=== PATIENT | female | born 1965 | race Caucasian/White ===

== ENCOUNTER 2016-10-11 05:52 | Inpatient (IN) | payer MEDICARE, OTHER ==
[~2016-10-11] VITALS: Ht 152.4 cm; Wt 49.0 kg
[~2016-10-11 05:52] MED LIST: ALBU.5I NEB; ALBU6.7H INH; ALPR1TAB3 PO; CYCL1TAB29 PO; DIAZ10TA PO; FLUT1INH7 INH; HYDR-3516 PO; OXYGENTANK NAS.CANULA; PROM6.256 PO
[2016-10-11] MEDS ORDERED: INSULIN HUMAN REGULAR 1,000 UNITS/10 ML VIAL SQ PRN (06:30)
[2016-10-11] MEDS ORDERED: LACTATED RINGER'S 1000 ML IV PRN (06:30)
[2016-10-11] MEDS ORDERED: SODIUM CHLORID 0.9% 500 ML IV PRN (06:30)
[2016-10-11] MEDS ORDERED: ceFAZolin 2 GM PREMIX 50 ML IV SCH (06:30)
[2016-10-11] MEDS ORDERED: CHLORHEXIDINE GLUCONATE 2 % 1 PACK (2 CLOTHS) TOPICAL PRN (06:30)
[2016-10-11] MEDS ORDERED: METOPROLOL TARTRATE 25 MG TAB PO PRN (06:30)
[2016-10-11 06:40] VITALS: BP 101/69; PULSE 70; RESP 16; TEMP 97.2; O2SAT 98
[2016-10-11 06:55] LABS: AUTOMATED NEUTROPHIL # 2.8 TH/MM3 (1.8-7.7); BASOPHIL # 0.1 TH/MM3 (0-0.2); BASOPHIL % 1.1 % (0.0-2.0); EOSINOPHIL # 0.4 TH/MM3 (0-0.4); EOSINOPHIL % 5.6 % (0.0-4.0); HEMATOCRIT 37.9 % (35.0-46.0); HEMO FLAGS DIFF FINAL; LYMPH % 43.8 % (9.0-44.0); LYMPHOCYTE # 2.9 TH/MM3 (1.0-4.8); MEAN CELL VOLUME 80.9 FL (80.0-100.0); MEAN CORPUSCULAR HEMOGLOBIN 26.8 PG (27.0-34.0); MEAN CORPUSCULAR HGB CONC 33.1 % (32.0-36.0); MONO % 7.1 % (0.0-8.0); NEUT % 42.4 % (16.0-70.0); PLATELET COUNT 215 TH/MM3 (150-450); RED BLOOD COUNT 4.68 MIL/MM3 (4.00-5.30); RED CELL DISTRIBUTION WIDTH 14.8 % (11.6-17.2); WHITE BLOOD COUNT 6.7 TH/MM3 (4.0-11.0)
[2016-10-11 07:10] LABS: BICARBONATE 28.3 MEQ/L (21.0-32.0); POTASSIUM 3.9 MEQ/L (3.5-5.1)
[2016-10-11] MEDS ORDERED: BUPRENORPHINE HCL 0.3 MG/1 ML VIAL ONE (07:27)
[2016-10-11] MEDS ORDERED: MIDAZOLAM HCL 2 MG/2 ML VIAL ONE (07:48)
[2016-10-11] MEDS ORDERED: methylPREDNISolone SOD SUCC 125 MG/2 ML VIAL ONE (07:48)
[2016-10-11] MEDS ORDERED: BUPIVACAINE LIPOSOME PF 1.3% 20 ML VIAL ONE (08:26)
[2016-10-11] MEDS ORDERED: DEXAMETHASONE SOD PHOS PF 10 MG/ML VIAL IV ONE (08:26)
[2016-10-11] MEDS ORDERED: BUPIVACAINE/EPINEPHRINE 0.25% PF 30 ML VIAL INFIL ONE (08:38)
--- NOTE | 2016-10-11 10:20 | EKG ---
Date Performed: 10/11/2016 Time Performed: 06:47:17 PTAGE: 51 years EKG: Sinus rhythm NORMAL ECG PREVIOUS TRACING : 06/07/2014 20.42 DOCTOR: Wood Skinner Interpretating Date/Time 10/11/2016 10:17:54
[2016-10-11] MEDS ORDERED: fentaNYL CITRATE 250 MCG/5 ML AMP ONE (11:10)
[2016-10-11] MEDS ORDERED: MORPHINE SULFATE 4 MG/ML INJ IV PRN (11:15)
[2016-10-11] MEDS ORDERED: Post-op Orders (for Pharmacy) MISC XX ONE (11:15)
[2016-10-11] MEDS ORDERED: diphenhydrAMINE HCL 50 MG/ML VIAL IV PRN (11:15)
[2016-10-11] MEDS ORDERED: ACETAMINOPHEN 325 MG TAB PO PRN (11:15)
[2016-10-11] MEDS ORDERED: LORazepam 2 MG/ML VIAL IVP PRN (11:15)
[2016-10-11] MEDS ORDERED: RESP: ALBUTEROL 1.25 MG/3 ML NEB (PRN) NEB (11:15)
[2016-10-11] MEDS ORDERED: ACETAMINOPHEN/HYDROcodone 325 MG/5 MG TAB PO PRN (11:15)
[2016-10-11] MEDS ORDERED: PROMETHAZINE HCL 25 MG SUPP RECTAL PRN (11:15)
[2016-10-11] MEDS ORDERED: ONDANSETRON HCL 4 MG/2 ML VIAL IV PRN (11:15)
[2016-10-11] MEDS ORDERED: MAGNESIUM HYDROXIDE SUSP 30 ML CUP PO PRN (11:15)
[2016-10-11] MEDS ORDERED: NALOXONE HCL 0.4 MG/ML AMP IV PRN (11:15)
--- NOTE | 2016-10-11 11:19 | HHI.PR ---
Immediate Post Op Note Procedure Date: October 11, 2016 Pre Op Diagnosis: (1) Median arcuate ligament syndrome Post Op Diagnosis: (1) Median arcuate ligament syndrome Surgeon: Giancarlo Cheney Online Tutor(s): Anirudh Bai MD Procedure: Laparoscopic division of median arcuate ligament Findings: significant compression of high takeoff and long celiac truck Complications: none Specimen(s) removed: none Estimated blood loss: 25ml Anesthesia: General, Regional Block Drains: None Patient to: PACU Patient Condition: Good Giancarlo Cheney MD October 11, 2016 11:19
[2016-10-11] MEDS ORDERED: DO NOT ADM ANY ANTICOAGULANT DRUGS PRN (11:30)
[2016-10-11] MEDS ORDERED: *ONDANSETRON 4 MG VIAL PERIprocedural Use ONLY ONE (11:46)
[2016-10-11] MEDS ORDERED: *morphine SULFATE 8 MG/ML PERIprocedure ONLY ONE ×2 (11:48→12:11)
[2016-10-11] MEDS: PANTOPRAZOLE SODIUM 40 MG VIAL IV SCH (11:58)
[2016-10-11] MEDS ORDERED: ONDANSETRON HCL 4 MG/2 ML VIAL IV PUSH ONE (12:00)
[2016-10-11] MEDS ORDERED: NEOSTIGMINE 3 MG/3 ML SYR IV ONE (12:00)
[2016-10-11] MEDS ORDERED: PROPOFOL 200 MG/20 ML AMP IV ONE (12:00)
[2016-10-11] MEDS ORDERED: PHENYLEPH/NS 1000 MCG/10 ML SYR IV ONE (12:00)
[2016-10-11] MEDS: SODIUM CHLOR 0.9% 1000 ML INJ 1,000 ML IV SCH ×2 (12:00→19:51)
[2016-10-11] MEDS ORDERED: ePHEDrine/NS 25 MG/5 ML SYR IV ONE (12:00)
[2016-10-11] MEDS: RESP: ALBUTEROL 1.25 MG/3 ML NEB (SCH) NEB ×3 (12:10→20:00)
--- NOTE | 2016-10-11 12:28 | MP ---
cc: EMMA GALINDO DATE OF SURGERY: 10/11/2016 PREOPERATIVE DIAGNOSIS Median arcuate ligament syndrome. POSTOPERATIVE DIAGNOSIS Median arcuate ligament syndrome. PROCEDURE Laparoscopic division of the median arcuate ligament. ATTENDING SURGEON Dr. Galindo. CHILD CARE LEADER Dr. Anirudh Bai. ANESTHESIA General and regional block. FINDINGS A very high takeoff long celiac artery under very significant compression from the arcuate ligament, complete division up to the proximal portion of the takeoff of the arcuate ligament. INDICATIONS FOR PROCEDURE The patient is a 51-year-old female with over 25 pounds of weight loss and has significant epigastric abdominal pain with p.o. intake. Extensive workup done by her housekeeping department worker Dr. Pierre did reveal a compression of the celiac artery with a high takeoff and with these image findings as well as the clinical scenario this was very concerning for median arcuate ligament syndrome. The patient was referred for surgery evaluation. The patient also was referred by myself and Dr. Wood of vascular surgery, who agreed that the patient had clinical and imaging concerning for arcuate ligament syndrome. The risks, benefits, alternatives including outcomes after the procedure were discussed with the patient prior to the procedure and the patient agreed to undergo the procedure. PROCEDURE After informed consent was obtained the patient was taken to the operating room, placed in supine position, placed under general endotracheal anesthesia. The patient's abdomen was prepped and draped in sterile fashion. Time-out was performed. The abdomen was entered through a Colin direct entry type technique just above the umbilicus. We used local anesthetic at all port sites. We insufflated the abdomen, surveyed the abdomen with the 5 mm 30 degree camera and there is no evidence of any complication from our entry. There is really no significant intra-abdominal pathology. There was some scarring on the liver but no suspicion for any malignancy or acute process. We then placed additional ports, these were all 5 mm ports, two in the left upper quadrant, one in the subxiphoid position, one in the right upper quadrant, all under visualization with the laparoscope. We placed a maria fernanda flex retractor to retract the left lobe of the liver upward. Then used the combination of multiple instruments including the laparoscopic LigaSure, laparoscopic Maryland dissectors and the hook electrocautery to begin our dissection. We were able to easily visualize the common hepatic artery as well as the left gastric artery from the celiac trunk. We did use the LigaSure as well as electrocautery to take down the gastrohepatic ligament and open up the lesser sac and the peritoneum overlying the aorta. We completely dissected out around the celiac artery approximately 270 degrees so that we could confirm that this was the celiac trunk and we had got down to the adventitia. We continued our dissection superiorly and along the celiac trunk again using gentle careful dissection with a Maryland underneath the arcuate ligament and dividing the ligament, small 2-4 mm bites with the LigaSure. We continue this dissection until we had encountered the junction of the celiac trunk and aorta. This was 2-3 cm above the splaying into the vessels and was relatively long celiac trunk which essentially popped up into the field as we divided the median arcuate ligament. This was very concerning for significant compression. We completely freed up the celiac trunk again to the most proximal portion of the origin and there was no kinking and we had a good pulsatile flow. I felt at this point in time we had completely dissected the arcuate ligament and would have an excellent technical result and we turned our attention towards closure. We did place some small hemoclips on some branches at the diaphragm as well as some lymphatic vessels. We had no bleeding, bile leak or evidence of any problem at this point. We removed the maria fernanda flex retractor was placed the left lobe of the liver back in normal anatomic position. We removed all ports under visualization with the laparoscope and expressed pneumoperitoneum. We closed the fascia at the Colin port site with 0 Vicryl suture. We closed the skin with 4-0 Monocryl and Dermabond. The patient was discontinued from anesthesia, taken to PACU in stable condition. The patient tolerated the procedure well. There were no apparent complications. All counts were correct. I was present and scrubbed for the entire procedure. MD HUMERA Rubio/EDUARDO /11:23 AM /12:01 PM
[2016-10-11] MEDS ORDERED: *HYDROmorphone PF 1 MG VIAL PERIprocedural Use ONLY ONE (12:56)
[2016-10-11] MEDS: DIAZEPAM 10 MG TAB PO SCH ×2 (13:00→18:05)
[2016-10-11 14:00] VITALS: BP 103/63; PULSE 76; RESP 16; TEMP 96.2; O2SAT 100
[2016-10-11] MEDS: ACETAMINOPHEN/HYDROcodone 325 MG/10 MG TAB PO PRN ×3 (15:21→23:51)
[2016-10-11 16:00] VITALS: BP 113/60; PULSE 75; RESP 17; TEMP 96.9; O2SAT 100
[2016-10-11] MEDS: ALPRAZolam 1 MG TAB PO SCH (19:51)
[2016-10-11] MEDS: SODIUM CHLORIDE 0.9% FLUSH 10 ML FLUSH IV FLUSH SCH (19:53)
[2016-10-11 20:00] VITALS: BP 113/72; PULSE 77; RESP 20; TEMP 97.2; O2SAT 100; O2SAT 99
[2016-10-11] MEDS: KETOROLAC TROMETHAMINE 60 MG/2 ML (IM) VIAL IM PRN (20:53)
[2016-10-12] VITALS (11 sets, daily range): BP systolic 101–125; BP diastolic 60–72; PULSE 65–80; RESP 16–20; TEMP 96.9–98.3; O2SAT 95–100
[2016-10-12] MEDS: RESP: ALBUTEROL 1.25 MG/3 ML NEB (SCH) NEB ×6 (01:26→20:00)
[2016-10-12] MEDS: KETOROLAC TROMETHAMINE 60 MG/2 ML (IM) VIAL IM PRN (02:44)
[2016-10-12 05:47] LABS: AUTOMATED NEUTROPHIL # 7.6 TH/MM3 (1.8-7.7); BASOPHIL % 0.3 % (0.0-2.0); EOSINOPHIL # 0.1 TH/MM3 (0-0.4); EOSINOPHIL % 0.8 % (0.0-4.0); HEMATOCRIT 35.8 % (35.0-46.0); HEMO FLAGS DIFF FINAL; LYMPH % 25.3 % (9.0-44.0); LYMPHOCYTE # 2.9 TH/MM3 (1.0-4.8); MEAN CELL VOLUME 79.9 FL (80.0-100.0); MEAN CORPUSCULAR HEMOGLOBIN 26.5 PG (27.0-34.0); MEAN CORPUSCULAR HGB CONC 33.2 % (32.0-36.0); MONO % 6.5 % (0.0-8.0); NEUT % 67.1 % (16.0-70.0); PLATELET COUNT 195 TH/MM3 (150-450); RED BLOOD COUNT 4.48 MIL/MM3 (4.00-5.30); RED CELL DISTRIBUTION WIDTH 15.1 % (11.6-17.2); WHITE BLOOD COUNT 11.3 TH/MM3 (4.0-11.0)
[2016-10-12 06:27] LABS: BICARBONATE 28.3 MEQ/L (21.0-32.0)
[2016-10-12] MEDS: SODIUM CHLOR 0.9% 1000 ML INJ 1,000 ML IV SCH ×2 (07:11→17:11)
[2016-10-12] MEDS ORDERED: NALOXONE HCL 0.4 MG/ML AMP IV PRN (08:00)
[2016-10-12] MEDS: ENOXAPARIN SODIUM 40 MG/0.4 ML SYRINGE SQ SCH (08:41)
[2016-10-12] MEDS: DIAZEPAM 10 MG TAB PO SCH ×3 (08:43→18:23)
[2016-10-12] MEDS: SODIUM CHLORIDE 0.9% FLUSH 10 ML FLUSH IV FLUSH SCH ×2 (08:43→20:10)
[2016-10-12] MEDS: PANTOPRAZOLE SODIUM 40 MG VIAL IV SCH (08:43)
[2016-10-12] MEDS ORDERED: diphenhydrAMINE HCL 50 MG CAP PO ONE ×2 (08:45→22:00)
[2016-10-12] MEDS ORDERED: FLUTICASONE VILANTEROL INH SCH (09:00)
[2016-10-12] MEDS: MORPHINE SULFATE 30 MG/30 ML PCA IV SCH (09:31)
[2016-10-12] MEDS: predniSONE 50 MG TAB PO SCH ×3 (10:53→21:57)
[2016-10-12] MEDS: oxyCODONE/ACETAMINOPHEN 7.5 MG/325 MG TAB PO PRN ×4 (10:53→23:55)
[2016-10-12] MEDS: CYCLOBENZAPRINE HCL 10 MG TAB PO PRN ×2 (13:45→21:57)
[2016-10-12] MEDS: PCA - TOTAL MG MORPHINE DELIVERED PER SHIFT SCH ×2 (14:00→20:10)
--- NOTE | 2016-10-12 16:19 | HHI.PR ---
Subjective Subjective Notes Resting in bed Pain controlled with CLIENT SERVICES REPRESENTATIVE pump Objective Vitals/I&O Vital Signs Date Time Temp Pulse Resp B/P Pulse Ox O2 Delivery O2 Flow Rate FiO2 10/12/16 14:00 16 10/12/16 12:00 96.9 80 109/71 98 10/12/16 11:33 Nasal Cannula 2.00 Labs Laboratory Tests Test 10/12/16 05:33 White Blood Count 11.3 Red Blood Count 4.48 Hemoglobin 11.9 Hematocrit 35.8 Mean Corpuscular Volume 79.9 Mean Corpuscular Hemoglobin 26.5 Mean Corpuscular Hemoglobin 33.2 Concent Red Cell Distribution Width 15.1 Platelet Count 195 Mean Platelet Volume 7.7 Neutrophils (%) (Auto) 67.1 Lymphocytes (%) (Auto) 25.3 Monocytes (%) (Auto) 6.5 Eosinophils (%) (Auto) 0.8 Basophils (%) (Auto) 0.3 Neutrophils # (Auto) 7.6 Lymphocytes # (Auto) 2.9 Monocytes # (Auto) 0.7 Eosinophils # (Auto) 0.1 Basophils # (Auto) 0.0 CBC Comment DIFF FINAL Differential Comment Sodium Level 142 Potassium Level 4.0 Chloride Level 106 Carbon Dioxide Level 28.3 Anion Gap 8 Blood Urea Nitrogen 5 Creatinine 0.47 Estimat Glomerular Filtration 140 Rate Random Glucose 95 Calcium Level 8.4 Cardiovascular: Regular Lungs: Clear Abdomen: Other (lap sites c/d/i with Dermabond in place; post op tenderness; abd soft ) Extremities: No edema A/P Assessment and Plan 51 year old female POD1 Laparoscopic division of median arcuate ligament -CTA to eval celiac trunk -Regular diet + chocolate Ensure---encouraged small more frequent meals -Pain control -OOB as tolerated Attending Statement The exam, history, and the medical decision-making described in the above note were completed with the assistance of the mid-level provider. I reviewed and agree with the findings presented. I attest that I had a [id number] encounter with the patient on the same day, and personally performed and documented my assessment and findings in the medical record. Abdominal exam with expected postop tenderness on exam Anna Botello October 12, 2016 16:19 Giancarlo Cheney MD October 24, 2016 17:01
[2016-10-12] MEDS: ALPRAZolam 1 MG TAB PO SCH (20:09)
[2016-10-12] MEDS ORDERED: IOHEXOL 350 MG/ML 10 ML VIAL (for RAD DIAG) IV ONE (23:31)
[2016-10-13] VITALS (10 sets, daily range): BP systolic 94–119; BP diastolic 55–70; PULSE 61–80; RESP 16–18; TEMP 97–97.6; O2SAT 98–100
--- NOTE | 2016-10-13 00:21 | RADRPT ---
EXAM DATE/TIME: 10/12/2016 23:23 [facility] COMPARISON: No previous studies available for comparison. INDICATIONS : Post arcuate ligament ligation. Evaluate celiac trunk. IV CONTRAST: 100 cc Omnipaque 350 (iohexol) IV ORAL CONTRAST: No oral contrast ingested. RADIATION DOSE: 4.57 CTDIvol (mGy) MEDICAL HISTORY : Gastroesophageal reflux disease. Diverticulitis. Ulcers.COPD. Myocardial infarction. SURGICAL HISTORY : Appendectomy. Cholecystectomy.Hysterectomy. ENCOUNTER: Initial ACUITY: 1 day PAIN SCALE: 5/10 LOCATION: All quadrants. Patient was premedicated for underlying contrast media allergy. TECHNIQUE: Volumetric scanning was performed using a multi-row detector CT scanner. The data was post processed with a variety of visualization algorithms including full volume maximum intensity projection, multi -planar sliding thin slab reformation, curved planar reformation, and surface rendering techniques. Using automated exposure control and adjustment of the mA and/or kV according to patient size, radiat ion dose was kept as low as reasonably achievable to obtain optimal diagnostic quality images. FINDINGS: Patient reportedly status post ligation of the arcuate ligament. Multiple surgical clips present near the origin of the celiac artery. Celiac artery is patent and the common hepatic and splenic artery a re patent. Superior mesenteric, inferior mesenteric and renal arteries are also patent. There is mild to moderate atherosclerotic change in the aorta without aneurysm. There is free intraperitoneal air presumably related to recent surgical procedure. No acute findings in the visualized liver, spleen, adrenals, kidneys or pancreas. Small amount of free fluid in the pel vis. No acute bony abnormality. CONCLUSION: 1. Patent celiac artery and branches. Numerous surgical clips in the upper abdomen. 2. Superior mesenteric, inferior mesenteric and renal arteries also patent. Moderate atherosclerosis. 3. Free intraperitoneal air and small amount of free fluid presumably related to recent surgery. Jeremi Fox MD on October 13, 2016 at 0:13 Board Certified Radiologist. This report was verified electronically.
[2016-10-13] MEDS: RESP: ALBUTEROL 1.25 MG/3 ML NEB (SCH) NEB ×7 (03:36→23:37)
[2016-10-13] MEDS: oxyCODONE/ACETAMINOPHEN 7.5 MG/325 MG TAB PO PRN ×4 (04:03→17:29)
[2016-10-13] MEDS: MORPHINE SULFATE 30 MG/30 ML PCA IV SCH (04:18)
[2016-10-13] MEDS: SODIUM CHLOR 0.9% 1000 ML INJ 1,000 ML IV SCH ×3 (04:19→23:46)
[2016-10-13] MEDS: PCA - TOTAL MG MORPHINE DELIVERED PER SHIFT SCH ×3 (06:00→20:27)
[2016-10-13] MEDS: DIAZEPAM 10 MG TAB PO SCH ×3 (08:25→17:29)
[2016-10-13] MEDS: PANTOPRAZOLE SODIUM 40 MG VIAL IV SCH (08:25)
[2016-10-13] MEDS: SODIUM CHLORIDE 0.9% FLUSH 10 ML FLUSH IV FLUSH SCH ×2 (08:26→20:27)
[2016-10-13] MEDS: ENOXAPARIN SODIUM 40 MG/0.4 ML SYRINGE SQ SCH (08:26)
--- NOTE | 2016-10-13 10:59 | HHI.PR ---
Subjective Subjective Notes Resting in bed Reports low appetite Objective Vitals/I&O Vital Signs Date Time Temp Pulse Resp B/P Pulse Ox O2 Delivery O2 Flow Rate FiO2 10/13/16 09:35 16 10/13/16 08:50 99 Nasal Cannula 2.00 10/13/16 08:00 97.3 68 119/67 10/12/16 16:39 21 Radiology Last 48 hours Impressions Abdomen/Pelvis CT 10/12/16 0000 Signed Impressions: Service Date/Time: September 23:23 - CONCLUSION: 1. Patent celiac artery and branches. Numerous surgical clips in the upper abdomen. 2. Superior mesenteric, inferior mesenteric and renal arteries also patent. Moderate atherosclerosis. 3. Free intraperitoneal air and small amount of free fluid presumably related to recent surgery. Jeremi Fox MD Cardiovascular: Regular Lungs: Clear Abdomen: Other (lap sites c/d/i; mild distenstion; tender to palpation throughout abdomen ) Extremities: No edema A/P Assessment and Plan 51 year old female POD2 Laparoscopic division of median arcuate ligament -CTA to eval celiac trunk shows patent celiac artery and branches -Plan for labs in the AM -Regular diet + chocolate Ensure---encouraged small more frequent meals -Pain control -OOB as tolerated -IS Attending Statement patient see seen at bedside CTA with patent celiac pt is feeling better Attestation The exam, history, and the medical decision-making described in the above note were completed with the assistance of the mid-level provider. I reviewed and agree with the findings presented. I attest that I had a [id number] encounter with the patient on the same day, and personally performed and documented my assessment and findings in the medical record. Anna Botello October 13, 2016 10:59 Anirudh Bai MD October 22, 2016 22:24
[2016-10-13] MEDS: CYCLOBENZAPRINE HCL 10 MG TAB PO PRN ×2 (13:03→21:14)
[2016-10-13] MEDS: ALPRAZolam 1 MG TAB PO SCH (20:26)
[2016-10-14] VITALS (14 sets, daily range): BP systolic 102–136; BP diastolic 58–76; PULSE 66–83; RESP 14–20; TEMP 96.4–97.3; O2SAT 94–100
[2016-10-14] MEDS: MORPHINE SULFATE 30 MG/30 ML PCA IV SCH ×2 (01:45→18:56)
--- NOTE | 2016-10-14 02:49 | RADRPT ---
EXAM DATE/TIME: 10/14/2016 02:36 [facility] COMPARISON: No previous studies available for comparison. INDICATIONS : Chest pain. MEDICAL HISTORY : None. SURGICAL HISTORY : None. ENCOUNTER: Initial ACUITY: 1 day PAIN SCORE: 7/10 LOCATION: Bilateral chest FINDINGS: There is a small amount of intraperitoneal air under the diaphragms presumably related to recent surg ishmael. Minimal basilar atelectasis. No effusion. No pneumothorax. Heart size within normal limits. CONCLUSION: 1. Free intraperitoneal air presumably related to recent surgery. No focal lung consolidation. Minima l basilar atelectasis. Jeremi Fox MD on October 14, 2016 at 2:45 Board Certified Radiologist. This report was verified electronically.
[2016-10-14 03:01] LABS: AUTOMATED NEUTROPHIL # 4.8 TH/MM3 (1.8-7.7); BASOPHIL % 0.5 % (0.0-2.0); EOSINOPHIL # 0.1 TH/MM3 (0-0.4); EOSINOPHIL % 1.2 % (0.0-4.0); HEMATOCRIT 31.1 % (35.0-46.0); LYMPH % 32.7 % (9.0-44.0); LYMPHOCYTE # 2.7 TH/MM3 (1.0-4.8); MEAN CELL VOLUME 81.5 FL (80.0-100.0); MEAN CORPUSCULAR HEMOGLOBIN 26.1 PG (27.0-34.0); MEAN CORPUSCULAR HGB CONC 32.1 % (32.0-36.0); MONO % 6.6 % (0.0-8.0); PLATELET COUNT 165 TH/MM3 (150-450); RED BLOOD COUNT 3.82 MIL/MM3 (4.00-5.30); RED CELL DISTRIBUTION WIDTH 14.9 % (11.6-17.2); WHITE BLOOD COUNT 8.1 TH/MM3 (4.0-11.0)
[2016-10-14 03:02] LABS: HEMO FLAGS DIFF FINAL
[2016-10-14 03:08] LABS: ALT (GPT) 12 U/L (10-53); ANION GAP 7 MEQ/L (5-15); AST (GOT) 27 U/L (15-37); BICARBONATE 27.6 MEQ/L (21.0-32.0); BLOOD UREA NITROGEN 5 MG/DL (7-18); CHLORIDE 110 MEQ/L (98-107); GLOMERULAR FILTRATION RATE 133 ML/MIN (>89); POTASSIUM 3.6 MEQ/L (3.5-5.1); SODIUM (NA) 145 MEQ/L (136-145)
[2016-10-14 03:11] LABS: ALKALINE PHOSPHATASE 35 U/L (45-117); TOTAL BILIRUBIN ADULT 0.2 MG/DL (0.2-1.0)
[2016-10-14] MEDS: RESP: ALBUTEROL 1.25 MG/3 ML NEB (SCH) NEB ×5 (04:33→21:15)
[2016-10-14] MEDS: PCA - TOTAL MG MORPHINE DELIVERED PER SHIFT SCH ×3 (06:00→22:00)
[2016-10-14] MEDS: oxyCODONE/ACETAMINOPHEN 7.5 MG/325 MG TAB PO PRN ×4 (06:14→23:42)
--- NOTE | 2016-10-14 08:06 | HHI.PR ---
Subjective Subjective Notes feels miserable, had pain so bad last night she felt like she was having a heart attack, meds help, but do not last long. Poor appetite, nausea, regurgitation. Objective Vitals/I&O Vital Signs Date Time Temp Pulse Resp B/P Pulse Ox O2 Delivery O2 Flow Rate FiO2 10/14/16 06:18 18 10/14/16 04:34 99 Nasal Cannula 2.00 10/14/16 04:00 97.3 83 134/73 10/12/16 16:39 21 Labs Laboratory Tests Test 10/14/16 02:29 White Blood Count 8.1 Red Blood Count 3.82 Hemoglobin 10.0 Hematocrit 31.1 Mean Corpuscular Volume 81.5 Mean Corpuscular Hemoglobin 26.1 Mean Corpuscular Hemoglobin 32.1 Concent Red Cell Distribution Width 14.9 Platelet Count 165 Mean Platelet Volume 8.2 Neutrophils (%) (Auto) 59.0 Lymphocytes (%) (Auto) 32.7 Monocytes (%) (Auto) 6.6 Eosinophils (%) (Auto) 1.2 Basophils (%) (Auto) 0.5 Neutrophils # (Auto) 4.8 Lymphocytes # (Auto) 2.7 Monocytes # (Auto) 0.5 Eosinophils # (Auto) 0.1 Basophils # (Auto) 0.0 CBC Comment DIFF FINAL Differential Comment Sodium Level 145 Potassium Level 3.6 Chloride Level 110 Carbon Dioxide Level 27.6 Anion Gap 7 Blood Urea Nitrogen 5 Creatinine 0.49 Estimat Glomerular Filtration 133 Rate Random Glucose 87 Calcium Level 8.1 Total Bilirubin 0.2 Aspartate Amino Transf 27 (AST/SGOT) Alanine Aminotransferase 12 (ALT/SGPT) Alkaline Phosphatase 35 Troponin I LESS THAN 0.02 Total Protein 5.5 Albumin 2.7 Radiology Last 48 hours Impressions Abdomen/Pelvis CT 10/12/16 0000 Signed Impressions: Service Date/Time: September 23:23 - CONCLUSION: 1. Patent celiac artery and branches. Numerous surgical clips in the upper abdomen. 2. Superior mesenteric, inferior mesenteric and renal arteries also patent. Moderate atherosclerosis. 3. Free intraperitoneal air and small amount of free fluid presumably related to recent surgery. Jeremi Fox MD Cardiovascular: Regular Lungs: Clear Abdomen: Non-distended, Other (incisions are healing well.), Post-op tenderness , BS normal Extremities: No edema, SCD's on A/P Assessment and Plan postop lap division of median arcuate ligament. Pain. Will add dilaudid for breakthrough. Add bethanechol to help stomach empty. Keep walking halls. Blayne Fitzpatrick MD October 14, 2016 08:06
[2016-10-14] MEDS: PANTOPRAZOLE SODIUM 40 MG VIAL IV SCH (08:40)
[2016-10-14] MEDS: DIAZEPAM 10 MG TAB PO SCH ×3 (08:42→17:05)
[2016-10-14] MEDS: CYCLOBENZAPRINE HCL 10 MG TAB PO PRN ×2 (08:42→20:13)
[2016-10-14] MEDS: SODIUM CHLORIDE 0.9% FLUSH 10 ML FLUSH IV FLUSH SCH ×2 (08:42→20:12)
[2016-10-14] MEDS: SODIUM CHLOR 0.9% 1000 ML INJ 1,000 ML IV SCH ×3 (08:43→23:55)
[2016-10-14] MEDS: HYDROmorphone HCL PF 1 MG/ML VIAL IV PUSH PRN ×3 (09:30→20:15)
[2016-10-14] MEDS: ENOXAPARIN SODIUM 40 MG/0.4 ML SYRINGE SQ SCH (09:35)
[2016-10-14] MEDS: BETHANECHOL CHL 25 MG TAB PO SCH ×3 (11:18→23:42)
--- NOTE | 2016-10-14 16:27 | EKG ---
Date Performed: 10/14/2016 Time Performed: 02:14:14 PTAGE: 51 years EKG: SINUS BRADYCARDIA WITH SHORT OR INTERVAL BORDERLINE ECG PREVIOUS TRACING 10/11/16 @ 06.47.17 Compared to prior tracing no significant change DOCTOR: Vanessa Alegria Interpretating Date/Time 10/14/2016 16:25:21
[2016-10-14] MEDS: ALPRAZolam 1 MG TAB PO SCH (20:13)
[2016-10-15] VITALS (9 sets, daily range): BP systolic 127–158; BP diastolic 62–86; PULSE 69–77; RESP 14–20; TEMP 96.9–97.8; O2SAT 96–100
[2016-10-15] MEDS: RESP: ALBUTEROL 1.25 MG/3 ML NEB (SCH) NEB ×3 (00:03→10:09)
[2016-10-15] MEDS: oxyCODONE/ACETAMINOPHEN 7.5 MG/325 MG TAB PO PRN ×3 (04:12→15:33)
[2016-10-15] MEDS: HYDROmorphone HCL PF 1 MG/ML VIAL IV PUSH PRN ×4 (05:52→21:22)
[2016-10-15] MEDS: CYCLOBENZAPRINE HCL 10 MG TAB PO PRN ×3 (05:52→23:47)
[2016-10-15] MEDS: BETHANECHOL CHL 25 MG TAB PO SCH ×4 (05:52→23:47)
[2016-10-15] MEDS: PCA - TOTAL MG MORPHINE DELIVERED PER SHIFT SCH ×3 (06:00→22:00)
[2016-10-15] MEDS: SODIUM CHLORIDE 0.9% FLUSH 10 ML FLUSH IV FLUSH SCH ×2 (09:00→21:00)
[2016-10-15] MEDS: ENOXAPARIN SODIUM 40 MG/0.4 ML SYRINGE SQ SCH (10:36)
[2016-10-15] MEDS: PANTOPRAZOLE SODIUM 40 MG VIAL IV SCH (10:36)
[2016-10-15] MEDS: DIAZEPAM 10 MG TAB PO SCH ×3 (10:36→17:09)
[2016-10-15] MEDS: MORPHINE SULFATE 30 MG/30 ML PCA IV SCH (11:26)
[2016-10-15] MEDS ORDERED: FUROSEMIDE 20 MG/2 ML VIAL IV PUSH ONE (15:00)
[2016-10-15] MEDS ORDERED: POTASSIUM CHLOR 20 MEQ PREMIX 100 ML IV ONE (15:00)
--- NOTE | 2016-10-15 20:26 | HHI.PR ---
Subjective Subjective Notes Still painful and using KETTLE HAND Some pain with eating Concerned about swollen legs Not sure of what her EF is (states she has CHF) Objective Vitals/I&O Vital Signs Date Time Temp Pulse Resp B/P Pulse Ox O2 Delivery O2 Flow Rate FiO2 10/15/16 16:00 96.9 70 14 148/76 100 10/15/16 10:12 21 10/15/16 08:20 Room Air 10/14/16 09:49 2.00 Radiology Last 48 hours Impressions Abdomen/Pelvis CT 10/12/16 0000 Signed Impressions: Service Date/Time: September 23:23 - CONCLUSION: 1. Patent celiac artery and branches. Numerous surgical clips in the upper abdomen. 2. Superior mesenteric, inferior mesenteric and renal arteries also patent. Moderate atherosclerosis. 3. Free intraperitoneal air and small amount of free fluid presumably related to recent surgery. Jeremi Fox MD Lungs: Clear, Other (No crackles or rales) Abdomen: Non-distended, Post-op tenderness Narrative Exam Laparoscopy sites clean without erythema A/P Assessment and Plan POD #3 Laparoscopic division median arcuate ligament Fair amount of pain still, as expected. Chest pain 24 hrs ago; CXR,EKG, and troponins all negative for workup. Advised to wean off KETTLE HAND to be able to go home. Decrease IVF; lasix and KCL today Ender Bahena MD October 15, 2016 20:26
[2016-10-15] MEDS: ALPRAZolam 1 MG TAB PO SCH (21:21)
[2016-10-16] VITALS (11 sets, daily range): BP systolic 114–160; BP diastolic 62–84; PULSE 72–88; RESP 16–20; TEMP 96.8–98.6; O2SAT 93–100
[2016-10-16] MEDS: HYDROmorphone HCL PF 1 MG/ML VIAL IV PUSH PRN ×3 (02:43→21:39)
[2016-10-16] MEDS: BETHANECHOL CHL 25 MG TAB PO SCH ×3 (05:21→18:05)
[2016-10-16] MEDS: PCA - TOTAL MG MORPHINE DELIVERED PER SHIFT SCH ×3 (05:22→20:19)
[2016-10-16] MEDS: CYCLOBENZAPRINE HCL 10 MG TAB PO PRN ×3 (05:22→20:22)
[2016-10-16 05:51] LABS: BICARBONATE 32.8 MEQ/L (21.0-32.0); POTASSIUM 3.6 MEQ/L (3.5-5.1)
[2016-10-16] MEDS: MORPHINE SULFATE 30 MG/30 ML PCA IV SCH (06:22)
[2016-10-16] MEDS: PANTOPRAZOLE SODIUM 40 MG VIAL IV SCH (09:18)
[2016-10-16] MEDS: ENOXAPARIN SODIUM 40 MG/0.4 ML SYRINGE SQ SCH (09:18)
[2016-10-16] MEDS: DIAZEPAM 10 MG TAB PO SCH ×3 (09:18→18:05)
[2016-10-16] MEDS: SODIUM CHLORIDE 0.9% FLUSH 10 ML FLUSH IV FLUSH SCH ×2 (09:19→20:19)
[2016-10-16] MEDS: oxyCODONE/ACETAMINOPHEN 7.5 MG/325 MG TAB PO PRN ×3 (09:35→20:21)
[2016-10-16] MEDS: SODIUM CHLOR 0.9% 1000 ML INJ 1,000 ML IV SCH (12:20)
[2016-10-16] MEDS: SODIUM CHLORIDE 0.9% FLUSH 10 ML FLUSH IV FLUSH PRN (16:08)
--- NOTE | 2016-10-16 17:14 | HHI.PR ---
Subjective Subjective Notes Resting in bed at bedside Reports pain Objective Vitals/I&O Vital Signs Date Time Temp Pulse Resp B/P Pulse Ox O2 Delivery O2 Flow Rate FiO2 10/16/16 16:00 98.6 72 16 114/77 100 10/16/16 08:17 21 10/15/16 21:00 Room Air 10/14/16 09:49 2.00 Labs Laboratory Tests Test 10/16/16 05:22 Sodium Level 139 Potassium Level 3.6 Chloride Level 100 Carbon Dioxide Level 32.8 Anion Gap 6 Blood Urea Nitrogen 5 Creatinine 0.51 Estimat Glomerular Filtration 127 Rate Random Glucose 84 Calcium Level 8.5 Radiology Last 48 hours Impressions Abdomen/Pelvis CT 10/12/16 0000 Signed Impressions: Service Date/Time: September 23:23 - CONCLUSION: 1. Patent celiac artery and branches. Numerous surgical clips in the upper abdomen. 2. Superior mesenteric, inferior mesenteric and renal arteries also patent. Moderate atherosclerosis. 3. Free intraperitoneal air and small amount of free fluid presumably related to recent surgery. Jeremi Fox MD Cardiovascular: Regular Lungs: Clear Abdomen: Other (mildly distended; lap sites c/d/i ) Extremities: No edema A/P Assessment and Plan 51 year old female POD5 Laparoscopic division of median arcuate ligament -CTA to eval celiac trunk shows patent celiac artery and branches -Regular diet + chocolate Ensure---encouraged small more frequent meals -Pain control -Bowel regimen -OOB as tolerated -IS Attending Statement The exam, history, and the medical decision-making described in the above note were completed with the assistance of the mid-level provider. I reviewed and agree with the findings presented. I attest that I had a [id number] encounter with the patient on the same day, and personally performed and documented my assessment and findings in the medical record. Abdominal exam postop tenderness, tolerating PO, continue oral and IV pain meds Anna Botello October 16, 2016 17:14 Giancarlo Cheney MD October 24, 2016 17:06
[2016-10-16] MEDS ORDERED: BISACODYL 10 MG SUPP RECTAL ONE (17:15)
[2016-10-16] MEDS ORDERED: LACTULOSE SYRUP 20 GM/30 ML CUP PO ONE (17:15)
[2016-10-16] MEDS ORDERED: MAGNESIUM HYDROXIDE SUSP 30 ML CUP PO ONE (17:15)
[2016-10-16] MEDS: DOCUSATE SODIUM 100 MG CAP PO SCH (20:19)
[2016-10-16] MEDS: ALPRAZolam 1 MG TAB PO SCH (20:19)
[2016-10-17] MEDS: BETHANECHOL CHL 25 MG TAB PO SCH ×4 (00:13→17:16)
[2016-10-17] MEDS: oxyCODONE/ACETAMINOPHEN 7.5 MG/325 MG TAB PO PRN ×3 (00:14→12:58)
[2016-10-17] MEDS: CYCLOBENZAPRINE HCL 10 MG TAB PO PRN ×2 (04:36→20:20)
[2016-10-17] MEDS: HYDROmorphone HCL PF 1 MG/ML VIAL IV PUSH PRN ×4 (04:36→22:31)
[2016-10-17] MEDS: PCA - TOTAL MG MORPHINE DELIVERED PER SHIFT SCH (04:46)
[2016-10-17 08:00] VITALS: BP 132/84; PULSE 78; RESP 16; TEMP 97.6; O2SAT 97
[2016-10-17] MEDS: DIAZEPAM 10 MG TAB PO SCH ×3 (08:50→17:16)
[2016-10-17] MEDS: SODIUM CHLORIDE 0.9% FLUSH 10 ML FLUSH IV FLUSH SCH ×2 (08:50→20:18)
[2016-10-17] MEDS: PANTOPRAZOLE SODIUM 40 MG VIAL IV SCH (08:50)
[2016-10-17] MEDS: DOCUSATE SODIUM 100 MG CAP PO SCH ×2 (08:50→20:18)
[2016-10-17] MEDS: ENOXAPARIN SODIUM 40 MG/0.4 ML SYRINGE SQ SCH (08:50)
--- NOTE | 2016-10-17 11:47 | HHI.PR ---
Subjective Subjective Notes Resting in bed Reports BM yesterday Objective Vitals/I&O Vital Signs Date Time Temp Pulse Resp B/P Pulse Ox O2 Delivery O2 Flow Rate FiO2 10/17/16 08:00 97.6 78 16 132/84 97 10/16/16 08:17 21 10/15/16 21:00 Room Air 10/14/16 09:49 2.00 Radiology Last 48 hours Impressions Abdomen/Pelvis CT 10/12/16 0000 Signed Impressions: Service Date/Time: September 23:23 - CONCLUSION: 1. Patent celiac artery and branches. Numerous surgical clips in the upper abdomen. 2. Superior mesenteric, inferior mesenteric and renal arteries also patent. Moderate atherosclerosis. 3. Free intraperitoneal air and small amount of free fluid presumably related to recent surgery. Jeremi Fox MD Cardiovascular: Regular Lungs: Clear Abdomen: Other (lap sites c/d/i; less distended today ) Extremities: No edema A/P Assessment and Plan 51 year old female POD6 Laparoscopic division of median arcuate ligament -CTA to eval celiac trunk shows patent celiac artery and branches -Regular diet + chocolate Ensure---encouraged small more frequent meals -Pain control---change to oxycodone -Bowel regimen ---+BM -OOB as tolerated -IS Attending Statement The exam, history, and the medical decision-making described in the above note were completed with the assistance of the mid-level provider. I reviewed and agree with the findings presented. I attest that I had a [id number] encounter with the patient on the same day, and personally performed and documented my assessment and findings in the medical record. pain a little better, still needs narcotic, will work toward DC home once pain controlled on oral meds Anna Botello October 17, 2016 11:47 Giancarlo Cheney MD October 24, 2016 17:07
[2016-10-17 12:00] VITALS: BP 134/83; PULSE 77; RESP 16; TEMP 98; O2SAT 97
[2016-10-17 14:13] VITALS: O2SAT 92
[2016-10-17 16:00] VITALS: BP 112/72; PULSE 71; RESP 17; TEMP 97.2; O2SAT 98
[2016-10-17 20:00] VITALS: BP 110/71; PULSE 81; RESP 20; TEMP 97.5; O2SAT 97
[2016-10-17] MEDS: ALPRAZolam 1 MG TAB PO SCH (20:19)
[2016-10-17 20:37] VITALS: O2SAT 97
[2016-10-18] VITALS: BP 117/69; PULSE 85; RESP 16; TEMP 97.3; O2SAT 97
[2016-10-18] MEDS: BETHANECHOL CHL 25 MG TAB PO SCH ×3 (00:12→13:20)
[2016-10-18] MEDS: SODIUM CHLORIDE 0.9% FLUSH 10 ML FLUSH IV FLUSH PRN (07:10)
[2016-10-18] MEDS: HYDROmorphone HCL PF 1 MG/ML VIAL IV PUSH PRN (07:10)
[2016-10-18 08:00] VITALS: BP 104/56; PULSE 84; RESP 16; TEMP 97.4; O2SAT 96
[2016-10-18] MEDS: ENOXAPARIN SODIUM 40 MG/0.4 ML SYRINGE SQ SCH (08:05)
[2016-10-18] MEDS: DIAZEPAM 10 MG TAB PO SCH ×2 (08:05→13:20)
[2016-10-18] MEDS: DOCUSATE SODIUM 100 MG CAP PO SCH (08:05)
[2016-10-18] MEDS: SODIUM CHLORIDE 0.9% FLUSH 10 ML FLUSH IV FLUSH SCH (08:06)
[2016-10-18] MEDS: PANTOPRAZOLE SODIUM 40 MG VIAL IV SCH (08:06)
[2016-10-18 12:00] VITALS: BP 83/61; PULSE 85; RESP 18; TEMP 97.6; O2SAT 97
--- NOTE | 2016-10-18 12:47 | HHI.PR ---
Subjective Subjective Notes Has been ambulating in hallways several times daily Feels like pain may be slightly better today Objective Vitals/I&O Vital Signs Date Time Temp Pulse Resp B/P Pulse Ox O2 Delivery O2 Flow Rate FiO2 10/18/16 12:00 97.6 85 18 83/61 97 10/17/16 20:37 21 10/15/16 21:00 Room Air 10/14/16 09:49 2.00 Radiology Last 48 hours Impressions Abdomen/Pelvis CT 10/12/16 0000 Signed Impressions: Service Date/Time: September 23:23 - CONCLUSION: 1. Patent celiac artery and branches. Numerous surgical clips in the upper abdomen. 2. Superior mesenteric, inferior mesenteric and renal arteries also patent. Moderate atherosclerosis. 3. Free intraperitoneal air and small amount of free fluid presumably related to recent surgery. Jeremi Fox MD Cardiovascular: Regular Lungs: Clear Abdomen: Other (lap sites c/d/i; abdomen soft ), Post-op tenderness Extremities: No edema A/P Assessment and Plan 51 year old female POD7 Laparoscopic division of median arcuate ligament -CTA to eval celiac trunk shows patent celiac artery and branches -Regular diet + chocolate Ensure---encouraged small more frequent meals -Pain control---change to oxycodone -Bowel regimen ---+BM -OOB as tolerated ----continue to ambulate in hallways -IS Attending Statement The exam, history, and the medical decision-making described in the above note were completed with the assistance of the mid-level provider. I reviewed and agree with the findings presented. I attest that I had a [id number] encounter with the patient on the same day, and personally performed and documented my assessment and findings in the medical record. Abdominal exam postop and benign pain ok with oral meds, DC home Anna Botello October 18, 2016 12:47 Giancarlo Cheney MD October 24, 2016 17:12
[2016-10-18 14:01] VITALS: O2SAT 97
--- NOTE | 2016-10-27 14:13 | HHI.DS ---
Discharge Summary Admission Date October 11, 2016 at 11:14 Discharge Date: October 18, 2016 Admitting Diagnosis Brief History 51 year old female s/p Laparoscopic division of median arcuate ligament PE at Discharge Resting in bed Cardio: RRR Resp: CTAB Abd: Laparoscopy sites clean without erythema Hospital Course This is a 51 year old female s/p Laparoscopic division of median arcuate ligament. A post operative CTA was completed to evaluate the celiac trunk shows patent celiac artery and branches. All were patent. The patient's pain was controlled using oral pain medications. She was able to tolerate a regular diet + Ensure protein shakes. She was able to ambulate independently. She will follow up in the office. Pt Condition on Discharge: Good Discharge Disposition: Discharge Home Discharge Instructions DIET: Follow Instructions for: As Tolerated, No Restrictions Activities you can perform: Partial Weight Bearing Activities to Avoid: Weight Bearing, Strenuous Activity Anna Botello Oct 27, 2016 14:13
== END 2016-10-18 16:05 | disposition home or self-care (01) | DRG 357 ==
LOC: HSDC 05:52 → HSDI 11:14 → N07B 14:17
PROVIDERS: ADMIT Surgery; ATTEND Surgery
PROC: 0M8 Bursae and Ligaments, Division (ICD-10-PCS; 2016-10-11)
PROC: 04N Lower Arteries, Release (ICD-10-PCS; principal; 2016-10-11 08:05)
DX: I77.4 Celiac artery compression syndrome (principal); I69.351 Hemiplegia and hemiparesis following cerebral infarction affecting right dominant side; Z99.81 Dependence on supplemental oxygen; I50.9 Heart failure, unspecified; R63.4 Abnormal weight loss; I25.2 Old myocardial infarction; J44.9 Chronic obstructive pulmonary disease, unspecified; M79.7 Fibromyalgia; M06.9 Rheumatoid arthritis, unspecified; M81.0 Age-related osteoporosis without current pathological fracture; F17.210 Nicotine dependence, cigarettes, uncomplicated; Z68.21 Body mass index [BMI] 21.0-21.9, adult; Z88.6 Allergy status to analgesic agent; Z91.041 Radiographic dye allergy status; Z86.14 Personal history of Methicillin resistant Staphylococcus aureus infection
CPT/HCPCS: 71010; 74174; 80048; 80053; 84484; 85025; 93005; 94150; 94640; 94664; C9113; C9290; J0592; J0690; J1100; J1170; J1650; J1885; J1940; J2060; J2250; J2270; J2370; J2405; J2710; J2930; J3010; J3480; J7030; J7120; J7512; J7613; Q0163; Q9967

== ENCOUNTER 2016-11-07 13:23 | Inpatient (IN) | payer MEDICARE, OTHER ==
[~2016-11-07] VITALS: Ht 152.4 cm; Wt 42.5 kg
[~2016-11-07 13:23] MED LIST changes: -HYDR-3516 PO
[2016-11-07] MEDS: SODIUM CHLOR 0.9% 1000 ML INJ 1,000 ML IV SCH (15:00)
[2016-11-07 16:00] VITALS: BP 110/71; PULSE 76; RESP 16; TEMP 98.4; O2SAT 98
[2016-11-07] MEDS: LORazepam 2 MG/ML VIAL IV PRN ×2 (16:30→23:22)
[2016-11-07] MEDS: HYDROmorphone HCL PF 1 MG/ML VIAL IV PRN ×3 (16:30→23:22)
[2016-11-07 16:48] LABS: AUTOMATED NEUTROPHIL # 3.6 TH/MM3 (1.8-7.7); BASOPHIL # 0.1 TH/MM3 (0-0.2); BASOPHIL % 1.3 % (0.0-2.0); EOSINOPHIL # 0.3 TH/MM3 (0-0.4); EOSINOPHIL % 4.3 % (0.0-4.0); HEMATOCRIT 39.9 % (35.0-46.0); HEMO FLAGS DIFF FINAL; LYMPH % 40.6 % (9.0-44.0); MEAN CELL VOLUME 81.2 FL (80.0-100.0); MEAN CORPUSCULAR HEMOGLOBIN 25.9 PG (27.0-34.0); MEAN CORPUSCULAR HGB CONC 31.9 % (32.0-36.0); MONO % 5.2 % (0.0-8.0); NEUT % 48.6 % (16.0-70.0); PLATELET COUNT 276 TH/MM3 (150-450); RED BLOOD COUNT 4.91 MIL/MM3 (4.00-5.30); RED CELL DISTRIBUTION WIDTH 15.4 % (11.6-17.2); WHITE BLOOD COUNT 7.4 TH/MM3 (4.0-11.0)
[2016-11-07 17:00] LABS: APTT (PATIENT) 31.1 SEC (24.3-30.1); PROTHROMBIN TIME - PATIENT 11.2 SEC (9.8-11.6)
[2016-11-07 17:15] LABS: ALT (GPT) 13 U/L (10-53); ANION GAP 9 MEQ/L (5-15); AST (GOT) 14 U/L (15-37); BICARBONATE 25.8 MEQ/L (21.0-32.0); BLOOD UREA NITROGEN 9 MG/DL (7-18); CHLORIDE 104 MEQ/L (98-107); GLOMERULAR FILTRATION RATE 133 ML/MIN (>89); SODIUM (NA) 139 MEQ/L (136-145)
[2016-11-07 17:17] LABS: ALKALINE PHOSPHATASE 51 U/L (45-117); TOTAL BILIRUBIN ADULT 0.4 MG/DL (0.2-1.0)
--- NOTE | 2016-11-07 17:39 | PD.CONS ---
HPI History of Present Illness This is a 51 year old lady who came as direct admit with complaints of dysphagia , nausea after eating. SHe has also had upper abdominal pain since her surgery. She is s/p ligation arcuate ligament 10-11-16 w/ Dr Goodwin. A "few" months ago she began experiencing nausea after eating, as well as bolus sensation. She does have hx GERD for which she has recently been taking omeprazole. She has had EGD with dilation in past. SHe usually has loose stools but since surgery and being on opiates has been alternating bet constipation and loose stools. SHe admits black tarry stool in the last 6 months. No thuy blood. SHe does use NSAIDs but is unable to tell me how much or how frequently. She admits weight loss but cannot further quantify. Her last EGD was [address] Pierre and she says a non cancerous mass was found, ulcers, and a dilation was performed. Last colonoscopy was last year and polyps were found, which she says is common finding for her. She says she had a CT scan ordered by Dr Pierre and was subsequently referred to Dr Goodwin for her surgery in september. (Rain Sweet) PFSH Past Medical History COPD emphysema osteoporosis GERD depression sarcoidosis Past Surgical History laparoscopic ligation arcuate ligament hysterectomy tonsillectomy cholecystectomy removal exillary glands r/t sarcoidodid (Rain Sweet) Coded Allergies: *MDRO Multi-Drug Resistant Organism (Unverified Allergy, Severe, 06/08/14) Pt gives hx of of MRSA Aspirin (Verified Allergy, Severe, 10/11/16) Contrast Media (Verified Allergy, Intermediate, HIVES, 10/11/16) Family History colon ca - brother PAD breast ca - sister Social History no ETOH smokes few cigarettes daily no illicit drugs (Rain Sweet) Review of Systems Constitutional: DENIES: Fever Eyes: DENIES: Blurred vision Ears, nose, mouth, throat: DENIES: Hearing loss Respiratory: COMPLAINS OF: Wheezing Cardiovascular: DENIES: Chest pain Gastrointestinal: COMPLAINS OF: Black stools, Constipation, Diarrhea, Nausea, DENIES: Abdominal pain, Bloody stools, Vomiting, Hematemesis Genitourinary: DENIES: Hematuria Musculoskeletal: DENIES: Muscle aches Neurologic: DENIES: Abnormal gait Psychiatric: DENIES: Confusion (Rain Sweet) GI Exam Vitals I&O Vital Signs Date Time Temp Pulse Resp B/P Pulse Ox O2 Delivery O2 Flow Rate FiO2 11/07/16 16:00 98.4 76 16 110/71 98 Laboratory Test 11/07/16 16:06 White Blood Count 7.4 TH/MM3 Red Blood Count 4.91 MIL/MM3 Hemoglobin 12.7 GM/DL Hematocrit 39.9 % Mean Corpuscular Volume 81.2 FL Mean Corpuscular Hemoglobin 25.9 PG Mean Corpuscular Hemoglobin 31.9 % Concent Red Cell Distribution Width 15.4 % Platelet Count 276 TH/MM3 Mean Platelet Volume 8.1 FL Neutrophils (%) (Auto) 48.6 % Lymphocytes (%) (Auto) 40.6 % Monocytes (%) (Auto) 5.2 % Eosinophils (%) (Auto) 4.3 % Basophils (%) (Auto) 1.3 % Neutrophils # (Auto) 3.6 TH/MM3 Lymphocytes # (Auto) 3.0 TH/MM3 Monocytes # (Auto) 0.4 TH/MM3 Eosinophils # (Auto) 0.3 TH/MM3 Basophils # (Auto) 0.1 TH/MM3 CBC Comment DIFF FINAL Differential Comment Prothrombin Time 11.2 SEC Prothromb Time International 1.0 RATIO Ratio Activated Partial 31.1 SEC Thromboplast Time Sodium Level 139 MEQ/L Potassium Level 4.0 MEQ/L Chloride Level 104 MEQ/L Carbon Dioxide Level 25.8 MEQ/L Anion Gap 9 MEQ/L Blood Urea Nitrogen 9 MG/DL Creatinine 0.49 MG/DL Estimat Glomerular Filtration 133 ML/MIN Rate Random Glucose 51 MG/DL Calcium Level 9.1 MG/DL Total Bilirubin 0.4 MG/DL Aspartate Amino Transf 14 U/L (AST/SGOT) Alanine Aminotransferase 13 U/L (ALT/SGPT) Alkaline Phosphatase 51 U/L Total Protein 6.9 GM/DL Albumin 3.5 GM/DL Lipase 67 U/L Physical Examination HEENT: EOMI; normocephalic; atraumatic; no jaundice. CHEST: wheezes CARDIAC: RRR ABDOMEN: Soft, nondistended,TTP epigastric area; no hepatosplenomegaly; bowel sounds are present in all four quadrants. surgical incisions clean, no drainage or redness EXTREMITIES: No clubbing, cyanosis, or edema. SKIN: Normal; no rash; no jaundice. UNDER CUTTING MACHINE OPERATOR: No focal deficits; alert and oriented times three. (Rain Sweet) Assessment and Plan Plan ASSESSMENT - abdominal pain - epigastric area, ?surgical pain CT scan pending - nausea - after eating. onset "few months ago." - dysphagia, bolus sensation - hx GERD, previous dilation 1 year ago. EGD 1 yr ago found non cancerous mass per pt, ulcers - black tarry stool - for 6 months. HH WNL currently. PLAN - EGD w/ poss dilation - obtain consent - NPO after midnight - await CT scan - heme occult - monitor HH - further recommendations to follow This pt seen by myself and DR Sandoval and this note is written on his behalf ( Rain Sweet) Physician Comments Seen and examined with PERNELL, recent median arcuate ligamnet surgery with no improvement in symptoms. CT reviewed. EGD planned. Further recs to follow, thank you (Dixie Sandoval MD) Rain Sweet Nov 07, 2016 17:38 Dixie Sandoval MD Nov 08, 2016 13:10
[2016-11-07 20:00] VITALS: BP 103/64; PULSE 72; RESP 18; TEMP 96.3; O2SAT 96
[2016-11-07] MEDS: ENOXAPARIN SODIUM 30 MG/0.3 ML SYRINGE SQ SCH (21:00)
[2016-11-07] MEDS: predniSONE 50 MG TAB PO SCH (22:07)
[2016-11-08] VITALS: BP 100/55; PULSE 73; RESP 18; TEMP 96.9; O2SAT 97
[2016-11-08] MEDS: SODIUM CHLOR 0.9% 1000 ML INJ 1,000 ML IV SCH (01:14)
[2016-11-08] MEDS: predniSONE 50 MG TAB PO SCH ×2 (02:40→08:37)
[2016-11-08] MEDS: DEXT 5%-NACL 0.9% 1000 ML INJ 1,000 ML IV SCH ×3 (03:30→18:11)
[2016-11-08] MEDS: HYDROmorphone HCL PF 1 MG/ML VIAL IV PRN ×4 (03:31→15:58)
[2016-11-08] MEDS: LORazepam 2 MG/ML VIAL IV PRN ×3 (06:21→20:17)
[2016-11-08 08:00] VITALS: BP 102/63; PULSE 75; RESP 20; TEMP 97.5; O2SAT 96
[2016-11-08] MEDS ORDERED: diphenhydrAMINE HCL 50 MG CAP PO ONE (08:00)
[2016-11-08] MEDS: ENOXAPARIN SODIUM 30 MG/0.3 ML SYRINGE SQ SCH ×2 (08:36→20:07)
[2016-11-08] MEDS: PANTOPRAZOLE SODIUM 40 MG VIAL IV PUSH SCH (08:37)
[2016-11-08 09:56] VITALS: BP 102/63; PULSE 75; RESP 20; TEMP 97.5; O2SAT 96
[2016-11-08] MEDS ORDERED: IOHEXOL 350 MG/ML 10 ML VIAL (for RAD DIAG) IV ONE (09:56)
--- NOTE | 2016-11-08 11:27 | RADRPT ---
EXAM DATE/TIME: 11/08/2016 09:32 [facility] COMPARISON: CHEST SINGLE AP, October 14, 2016, 2:36. INDICATIONS : Abdominal pain and weight loss. IV CONTRAST: 94 cc Omnipaque 350 (iohexol) IV ORAL CONTRAST: No oral contrast ingested. RADIATION DOSE: 4.51 CTDIvol (mGy) MEDICAL HISTORY : Cardiovascular disease. Chronic obstructive pulmonary disease. SURGICAL HISTORY : Cholecystectomy. Appendectomy.Hysterectomy.Median arcuate ligament surgey ENCOUNTER: Initial ACUITY: 2 weeks PAIN SCALE: 5/10 LOCATION: Bilateral Abdomen TECHNIQUE: Volumetric scanning of the abdomen and pelvis was performed. Using automated exposure control and ad justment of the mA and/or kV according to patient size, radiation dose was kept as low as reasonably achievable to obtain optimal diagnostic quality images. FINDINGS: LOWER LUNGS: There is a 9 mm spiculated noncalcified nodule within the posterior aspect of the right lower lobe wh ich is indeterminate. Outpatient CT of the chest should be considered for further evaluation of this finding if clinically indicated. LIVER: Homogeneous density without lesion. There is dilatation of the common bile duct which measures 11 mm in greatest dimension. Although this could represent reservoir phenomenon status post cholecystectomy , correlation with alkaline phosphatase and bilirubin levels is suggested to rule out biliary obstruc tion. No calcified gallstones. SPLEEN: Normal size without lesion. PANCREAS: Within normal limits. KIDNEYS: Normal in size and shape. There is no mass, stone or hydronephrosis. ADRENAL GLANDS: Within normal limits. VASCULAR: There is no aortic aneurysm. BOWEL/MESENTERY: The stomach, small bowel, and colon demonstrate no acute abnormality. There is no free intraperitone al air or fluid. ABDOMINAL WALL: Within normal limits. RETROPERITONEUM: There is no lymphadenopathy. BLADDER: No wall thickening or mass. REPRODUCTIVE: Within normal limits. Some free fluid within the cul-de-sac is noted. INGUINAL: There is no lymphadenopathy or hernia. MUSCULOSKELETAL: Within normal limits for patient age. CONCLUSION: 1. Dilated common bile duct measuring 11 mm in although this could represent reservoir phenomenon sta tus post cholecystectomy correlation with alkaline phosphatase and bilirubin levels is suggested to r ule out biliary obstruction. 2. 9 mm spiculated noncalcified nodule within the right lower lobe which is indeterminate. Outpatient CT of the chest would be helpful for further characterization if clinically indicated. 3. Some free fluid within the cul-de-sac. Deondre Gil MD on November 08, 2016 at 11:17 Board Certified Radiologist. This report was verified electronically.
[2016-11-08] MEDS ORDERED: PROPOFOL 200 MG/20 ML AMP IV PUSH ONE (12:20)
[2016-11-08] MEDS ORDERED: DO NOT ADM ANY ANTICOAGULANT DRUGS PRN (12:21)
[2016-11-08 12:30] VITALS: BP 115/64; PULSE 80; RESP 19; TEMP 97.4; O2SAT 95
[2016-11-08] MEDS: METOCLOPRAMIDE HCL 10 MG/2 ML VIAL IV PUSH SCH ×2 (13:40→20:07)
--- NOTE | 2016-11-08 14:30 | EKG ---
Date Performed: 11/08/2016 Time Performed: 05:42:22 PTAGE: 51 years EKG: Sinus rhythm . Poor R wave progression - probable normal variant Septal T wave changes are nonspecific Low QRS vol tages in precordial leads Borderline ECG NO SIGNIFICANT CHANGE FROM PRIOR ELECTROCARDIOGRAM. PREVIOUS TRACING : 10/14/2016 02.14 DOCTOR: Dipesh Holt Interpretating Date/Time 11/08/2016 14:29:47
--- NOTE | 2016-11-08 14:36 | HHI.PR ---
Subjective Subjective Notes Resting in bed Just got coffee Recently back from EGD Objective Vitals/I&O Vital Signs Date Time Temp Pulse Resp B/P Pulse Ox O2 Delivery O2 Flow Rate FiO2 11/08/16 12:41 77 18 134/74 95 11/08/16 12:30 97.4 Labs Laboratory Tests Test 11/07/16 16:06 White Blood Count 7.4 Red Blood Count 4.91 Hemoglobin 12.7 Hematocrit 39.9 Mean Corpuscular Volume 81.2 Mean Corpuscular Hemoglobin 25.9 Mean Corpuscular Hemoglobin 31.9 Concent Red Cell Distribution Width 15.4 Platelet Count 276 Mean Platelet Volume 8.1 Neutrophils (%) (Auto) 48.6 Lymphocytes (%) (Auto) 40.6 Monocytes (%) (Auto) 5.2 Eosinophils (%) (Auto) 4.3 Basophils (%) (Auto) 1.3 Neutrophils # (Auto) 3.6 Lymphocytes # (Auto) 3.0 Monocytes # (Auto) 0.4 Eosinophils # (Auto) 0.3 Basophils # (Auto) 0.1 CBC Comment DIFF FINAL Differential Comment Prothrombin Time 11.2 Prothromb Time International 1.0 Ratio Activated Partial 31.1 Thromboplast Time Sodium Level 139 Potassium Level 4.0 Chloride Level 104 Carbon Dioxide Level 25.8 Anion Gap 9 Blood Urea Nitrogen 9 Creatinine 0.49 Estimat Glomerular Filtration 133 Rate Random Glucose 51 Calcium Level 9.1 Total Bilirubin 0.4 Aspartate Amino Transf 14 (AST/SGOT) Alanine Aminotransferase 13 (ALT/SGPT) Alkaline Phosphatase 51 Total Protein 6.9 Albumin 3.5 Lipase 67 Cardiovascular: Regular Lungs: Clear Abdomen: Other (lap sites healed; pain in epigastric region; abdomen soft; thin ) Extremities: No edema A/P Assessment and Plan 51 year old female s/p Laparoscopic division of median arcuate ligament in September 2016; now back with abdominal pain and weight loss -s/p EGD today -Diet as tolerated--will try sipping on liquids first -OOB and mobilize -Pain control -IVF Attending Statement The exam, history, and the medical decision-making described in the above note were completed with the assistance of the mid-level provider. I reviewed and agree with the findings presented. I attest that I had a [id number] encounter with the patient on the same day, and personally performed and documented my assessment and findings in the medical record. abdominal exam stable: mildly distended, tender epigastric area with no guarding or peritonitis Anna Botello Nov 08, 2016 14:36 Giancarlo Cheney MD Nov 17, 2016 10:11
--- NOTE | 2016-11-08 14:58 | PD.CONS ---
HPI Service [facility] Consult Requested By Primary Care Physician Jonn Stephenson DO Diagnoses: History of Present Illness The patient is a 51-year-old female recently diagnosed with median arcuate ligament syndrome s/p laparoscopic division of median arcuate ligament who is presenting to the hospital with severe abdominal pain and nausea with eating. The patient says that last month she had the stomach surgery because for months she had been unable to eat. She would get severe sharp stabbing pain in her abdomen radiating down her groin and radiating to her back. The pain would be worse with eating so she has avoided food in fear of eating. She had a laparoscopic division of the median arcuate ligament last month and has continued to have severe pain. She says she is still unable to eat. She has been drinking water, coffee and ensure. She says generally she has diarrhea but recently she has been constipated. She does endorse passing gas. She says the pain medication she receives only works for about 15 minutes. She also mentions her breathing is poor and she has been on hospice twice. She says she has taken herself off of hospice both times. She does get shortness of breath with exertion and lately has been using somebody else's oxygen. She says she follows up with a machinist supervisor outside but does not qualify for her own home oxygen at this time. Review of Systems Except as stated in HPI: all other systems reviewed are Neg Past Family Social History Allergies: Coded Allergies: *MDRO Multi-Drug Resistant Organism (Unverified Allergy, Severe, 06/08/14) Pt gives hx of of MRSA Aspirin (Verified Allergy, Severe, 10/11/16) Contrast Media (Verified Allergy, Intermediate, HIVES, 10/11/16) Past Medical History COPD Sarcoidosis Median arcuate ligament syndrome s/p laparoscopic division of median arcuate ligament CVA with residual right arm weakness Myocardial infarction 2 Fibromyalgia Depression Insomnia Neuropathy Pre-colon cancer Past Surgical History Tonsillectomy Appendectomy Complete hysterectomy Gland removals Active Ordered Medications Current Medications Medications (Trade) Dose Ordered Sig/Александр Route Start Time Stop Time Status Last Admin (Protonix Inj) 40 mg DAILY IV PUSH 11/08/16 09:00 11/08/16 08:37 (Dilaudid Pf Inj) 1 mg Q3H PRN IV 11/07/16 15:00 11/08/16 12:53 (Ativan Inj) 0.5 mg Q6H PRN IV 11/07/16 15:15 11/08/16 13:40 Enoxaparin Sodium 30 mg 30 mg BID SQ 11/07/16 21:00 (D5W-NS 1000 ml Inj) 1,000 ml @ 100 mls/hr Q10H IV 11/08/16 03:15 11/08/16 03:30 (Reglan Inj) 10 mg Q8HR IV PUSH 11/08/16 14:00 11/08/16 13:40 (Carafate Liq) 1 gm ACHS PO 11/08/16 16:00 Miscellaneous Information ALL NURSING DEPARTME... UNSCH PRN .XX 11/08/16 12:21 11/09/16 12:20 Non-Formulary Medication 1 puff DAILY INH 11/09/16 09:00 UNV Family History Colon cancer CAD COPD Social History The patient smokes a few cigarettes daily. She does not drink alcohol. Physical Exam Vital Signs Vital Signs Date Time Temp Pulse Resp B/P Pulse Ox O2 Delivery O2 Flow Rate FiO2 11/08/16 12:41 77 18 134/74 95 11/08/16 12:32 79 18 127/71 98 11/08/16 12:30 97.4 80 19 115/64 95 11/08/16 12:22 98.1 80 18 104/66 97 11/08/16 09:56 97.5 75 20 102/63 96 11/08/16 08:00 97.5 75 20 102/63 96 11/08/16 00:00 96.9 73 18 100/55 97 11/07/16 20:00 96.3 72 18 103/64 96 11/07/16 16:00 98.4 76 16 110/71 98 Physical Exam GENERAL: This is a cachectic female in no apparent distress. SKIN: No rashes, ecchymoses or lesions. Cool and dry. HEAD: Atraumatic. Normocephalic. No temporal or scalp tenderness. EYES: Pupils equal round and reactive. Extraocular motions intact. No scleral icterus. No injection or drainage. ENT: Nose without bleeding, purulent drainage or septal hematoma. Throat without erythema, tonsillar hypertrophy or exudate. Uvula midline. Airway patent. NECK: Trachea midline. No JVD or lymphadenopathy. Supple, nontender, no meningeal signs. CARDIOVASCULAR: Regular rate and rhythm without murmurs, gallops, or rubs. RESPIRATORY: Poor air movement and diffuse wheezing. GASTROINTESTINAL: Abdomen soft, tender in epigastric area, nondistended. No hepato-splenomegaly, or palpable masses. No guarding. MUSCULOSKELETAL: Extremities without clubbing, cyanosis, or edema. No joint tenderness, effusion, or edema noted. NEUROLOGICAL: Awake and alert. Cranial nerves II through XII intact. Motor and sensory grossly within normal limits. Five out of 5 muscle strength in all muscle groups. Normal speech. PSYCH: Mood and affect appropriate. Laboratory Laboratory Tests Test 11/07/16 16:06 White Blood Count 7.4 Red Blood Count 4.91 Hemoglobin 12.7 Hematocrit 39.9 Mean Corpuscular Volume 81.2 Mean Corpuscular Hemoglobin 25.9 Mean Corpuscular Hemoglobin 31.9 Concent Red Cell Distribution Width 15.4 Platelet Count 276 Mean Platelet Volume 8.1 Neutrophils (%) (Auto) 48.6 Lymphocytes (%) (Auto) 40.6 Monocytes (%) (Auto) 5.2 Eosinophils (%) (Auto) 4.3 Basophils (%) (Auto) 1.3 Neutrophils # (Auto) 3.6 Lymphocytes # (Auto) 3.0 Monocytes # (Auto) 0.4 Eosinophils # (Auto) 0.3 Basophils # (Auto) 0.1 CBC Comment DIFF FINAL Differential Comment Prothrombin Time 11.2 Prothromb Time International 1.0 Ratio Activated Partial 31.1 Thromboplast Time Sodium Level 139 Potassium Level 4.0 Chloride Level 104 Carbon Dioxide Level 25.8 Anion Gap 9 Blood Urea Nitrogen 9 Creatinine 0.49 Estimat Glomerular Filtration 133 Rate Random Glucose 51 Calcium Level 9.1 Total Bilirubin 0.4 Aspartate Amino Transf 14 (AST/SGOT) Alanine Aminotransferase 13 (ALT/SGPT) Alkaline Phosphatase 51 Total Protein 6.9 Albumin 3.5 Lipase 67 Result Diagram: 11/07/16 1606 11/07/16 1606 Imaging Last Impressions Abdomen/Pelvis CT 11/08/16 0000 Signed Impressions: Service Date/Time: Tuesday, November 08, 2016 09:32 - CONCLUSION: 1. Dilated common bile duct measuring 11 mm in although this could represent reservoir phenomenon status post cholecystectomy correlation with alkaline phosphatase and bilirubin levels is suggested to rule out biliary obstruction. 2. 9 mm spiculated noncalcified nodule within the right lower lobe which is indeterminate. Outpatient CT of the chest would be helpful for further characterization if clinically indicated. 3. Some free fluid within the cul-de-sac. Deondre Gil MD Assessment and Plan Assessment and Plan Abdominal pain/ Dysphagia Recently diagnosed with median arcuate ligament syndrome and is s/p laparoscopic division of median arcuate ligament. CT abdomen showed: Dilated common bile duct measuring 11 mm; 9 mm spiculated noncalcified nodule within the right lower lobe which is indeterminate; Some free fluid within the cul-de- sac. GI has been consulted and the pt is s/p EGD which revealed gastritis. - follow biopsy from EGD. - pain control and antiemetics as needed. - ADAT. - PPI IV. - further management per GI and GS. COPD Has been on hospice twice and removed herself both times. She uses somebody else 's home oxygen. Has a spiculated lung nodule as noted above. - Duonebs and oxygen as needed. - continue home inhaler. - IS. - Home oxygen walk test per respiratory. - outpt follow up with machinist supervisor outside to determine need for CT thorax in regards to spiculated nodule. Hypoglycemia S/t decreased PO intake. - agree with D5. - follow glucose regularly. - ADAT. Would add Ensure. CVA Chronic. With right arm weakness. - PT eval requested. PPx: Per primary Discussed Condition With Pt, pt's family, nurse Ender Cleveland DO Nov 08, 2016 14:58
[2016-11-08] MEDS ORDERED: RESP: ALBUTEROL 2.5 MG/IPRATROPIUM 0.5 MG NEB (PRN) NEB (15:15)
[2016-11-08] MEDS: SUCRALFATE 1 GM/10 ML CUP PO SCH ×2 (15:58→20:07)
[2016-11-08 16:00] VITALS: BP 120/73; PULSE 71; RESP 20; TEMP 97.4; O2SAT 95
[2016-11-08 20:00] VITALS: BP 121/66; PULSE 72; RESP 16; TEMP 98; O2SAT 96
[2016-11-09 01:00] VITALS: BP 130/70; PULSE 68; RESP 16; TEMP 97.7; O2SAT 96
[2016-11-09] MEDS: LORazepam 2 MG/ML VIAL IV PRN ×2 (03:57→09:45)
[2016-11-09] MEDS: SUCRALFATE 1 GM/10 ML CUP PO SCH ×4 (05:18→21:05)
[2016-11-09] MEDS: METOCLOPRAMIDE HCL 10 MG/2 ML VIAL IV PUSH SCH ×3 (05:18→22:00)
[2016-11-09 06:26] LABS: BICARBONATE 29.1 MEQ/L (21.0-32.0); MAGNESIUM 1.7 MG/DL (1.5-2.5); POTASSIUM 3.4 MEQ/L (3.5-5.1)
[2016-11-09 07:08] LABS: HEMATOCRIT 39.1 % (35.0-46.0); MEAN CELL VOLUME 81.1 FL (80.0-100.0); MEAN CORPUSCULAR HEMOGLOBIN 25.9 PG (27.0-34.0); MEAN CORPUSCULAR HGB CONC 31.9 % (32.0-36.0); PLATELET COUNT 190 TH/MM3 (150-450); RED BLOOD COUNT 4.83 MIL/MM3 (4.00-5.30); REVIEW FLAG FINAL
[2016-11-09 08:00] VITALS: BP 164/83; PULSE 69; RESP 18; TEMP 96.3; O2SAT 98
[2016-11-09] MEDS: DEXT 5%-NACL 0.9% 1000 ML INJ 1,000 ML IV SCH ×2 (09:15→13:33)
[2016-11-09] MEDS: FLUTICASONE 100 MCG/VILANTEROL 25 MCG INHALER INH SCH (09:30)
[2016-11-09] MEDS: PANTOPRAZOLE SODIUM 40 MG VIAL IV PUSH SCH (09:30)
[2016-11-09] MEDS: ENOXAPARIN SODIUM 30 MG/0.3 ML SYRINGE SQ SCH ×2 (09:30→21:05)
[2016-11-09 09:41] VITALS: BP 133/83; PULSE 72; RESP 17; O2SAT 97
[2016-11-09 12:00] VITALS: BP 140/80; PULSE 68; RESP 17; TEMP 97.3; O2SAT 99
[2016-11-09] MEDS: HYDROmorphone HCL PF 1 MG/ML VIAL IV PRN ×3 (12:04→23:50)
--- NOTE | 2016-11-09 12:29 | HHI.PR ---
Subjective Subjective Notes Did not sleep well last night at bedside Objective Vitals/I&O Vital Signs Date Time Temp Pulse Resp B/P Pulse Ox O2 Delivery O2 Flow Rate FiO2 11/09/16 09:41 72 17 133/83 97 11/09/16 08:00 96.3 11/08/16 17:04 2.00 Labs Laboratory Tests Test 11/09/16 11/09/16 05:56 09:38 White Blood Count 8.0 Red Blood Count 4.83 Hemoglobin 12.5 Hematocrit 39.1 Mean Corpuscular Volume 81.1 Mean Corpuscular Hemoglobin 25.9 Mean Corpuscular Hemoglobin 31.9 Concent Red Cell Distribution Width 15.0 Platelet Count 190 Mean Platelet Volume 8.4 Hematology Comments Sodium Level 142 Potassium Level 3.4 Chloride Level 107 Carbon Dioxide Level 29.1 Anion Gap 6 Blood Urea Nitrogen 7 Creatinine 0.56 Estimat Glomerular Filtration 114 Rate Random Glucose 100 Calcium Level 8.5 Magnesium Level 1.7 Nasal Screen MRSA (PCR) MRSA DETECTED Date/Time Procedure Status Source Growth 11/09/16 09:38 Stool Occult Blood (JERRELL) - Final Complete Stool Stool HEMOCCULT NEGATIVE Cardiovascular: Regular Lungs: Clear Abdomen: Non-distended, Other (lap sites healed; tender at umbilicus ) Extremities: No edema A/P Assessment and Plan 51 year old female s/p Laparoscopic division of median arcuate ligament in September 2016; now back with abdominal pain and weight loss -s/p EGD -Regular diet--added Ensure shakes ---patient prefers chocolate -OOB and mobilize -Pain control -IVF Attending Statement The exam, history, and the medical decision-making described in the above note were completed with the assistance of the mid-level provider. I reviewed and agree with the findings presented. I attest that I had a [id number] encounter with the patient on the same day, and personally performed and documented my assessment and findings in the medical record. abdominal exam stable: tenderness with no guarding or peritonitis EGD shows gastritis, agree with treatment per GI Anna Botello Nov 09, 2016 12:29 Giancarlo Cheney MD Nov 17, 2016 10:13
--- NOTE | 2016-11-09 12:58 | HHI.GIFU ---
Subjective Remarks Pt resting in bed, in no apparent distress. No change- still nauseous, with abd pain. (Rain Sweet) Objective Vitals I&O Vital Signs Date Time Temp Pulse Resp B/P Pulse Ox O2 Delivery O2 Flow Rate FiO2 11/09/16 12:00 97.3 68 17 140/80 99 11/09/16 09:41 72 17 133/83 97 11/09/16 08:00 96.3 69 18 164/83 98 11/09/16 01:00 97.7 68 16 130/70 96 11/08/16 20:00 98.0 72 16 121/66 96 11/08/16 17:04 2.00 11/08/16 16:00 97.4 71 20 120/73 95 I/O 11/08/16 11/08/16 11/08/16 11/09/16 11/09/16 11/09/16 07:00 15:00 23:00 07:00 15:00 23:00 Intake Total 745 ml 1425 ml 480 ml 1360 ml Output Total 450 ml 200 ml Balance 745 ml 975 ml 280 ml 1360 ml Intake Oral 0 ml 480 ml 480 ml 480 ml IV Total 745 ml 345 ml 880 ml Other 600 ml Output Urine Total 450 ml 200 ml # Voids 1 2 2 # Bowel Movements 0 0 0 Laboratory Laboratory Tests Test 11/09/16 11/09/16 05:56 09:38 White Blood Count 8.0 Red Blood Count 4.83 Hemoglobin 12.5 Hematocrit 39.1 Mean Corpuscular Volume 81.1 Mean Corpuscular Hemoglobin 25.9 Mean Corpuscular Hemoglobin 31.9 Concent Red Cell Distribution Width 15.0 Platelet Count 190 Mean Platelet Volume 8.4 Hematology Comments Sodium Level 142 Potassium Level 3.4 Chloride Level 107 Carbon Dioxide Level 29.1 Anion Gap 6 Blood Urea Nitrogen 7 Creatinine 0.56 Estimat Glomerular Filtration 114 Rate Random Glucose 100 Calcium Level 8.5 Magnesium Level 1.7 Nasal Screen MRSA (PCR) MRSA DETECTED Date/Time Procedure Status Source Growth 11/09/16 09:38 Stool Occult Blood (JERRELL) - Final Complete Stool Stool HEMOCCULT NEGATIVE Imaging Last Impressions Abdomen/Pelvis CT 11/08/16 0000 Signed Impressions: Service Date/Time: Tuesday, November 08, 2016 09:32 - CONCLUSION: 1. Dilated common bile duct measuring 11 mm in although this could represent reservoir phenomenon status post cholecystectomy correlation with alkaline phosphatase and bilirubin levels is suggested to rule out biliary obstruction. 2. 9 mm spiculated noncalcified nodule within the right lower lobe which is indeterminate. Outpatient CT of the chest would be helpful for further characterization if clinically indicated. 3. Some free fluid within the cul-de-sac. Deondre Gil MD Physical Exam HEENT: EOMI; normocephalic; atraumatic; no jaundice. CHEST: wheezes CARDIAC: RRR ABDOMEN: Soft, nondistended, diffuse TTP; no hepatosplenomegaly; bowel sounds are present in all four quadrants. EXTREMITIES: No clubbing, cyanosis, or edema. SKIN: Normal; no rash; no jaundice. METABOLIC SPECIALIST: No focal deficits; alert and oriented times three. (Rain Sweet) Assessment and Plan Plan ASSESSMENT - abdominal pain - epigastric area, ?surgical pain CT 11-08-16--> 1. Dilated common bile duct measuring 11 mm in although this could represent reservoir phenomenon status post cholecystectomy correlation with alkaline phosphatase and bilirubin levels is suggested to rule out biliary obstruction. 2. 9 mm spiculated noncalcified nodule within the right lower lobe which is indeterminate. Outpatient CT of the chest would be helpful for further characterization if clinically indicated. 3. Some free fluid within the cul-de-sac. s/p EGD, report pending - nausea - after eating. onset "few months ago." - dysphagia, bolus sensation - hx GERD, previous dilation 1 year ago. EGD 1 yr ago found non cancerous mass per pt, ulcers - black tarry stool - for 6 months. hemoccult negative. HH WNL currently. PLAN - will do GES - PIPER - monitor HH - further recommendations to follow This pt seen by myself and DR Sandoval and this note is written on his behalf ( Rain Sweet) Physician Comments Seen and examined, egd yesterday essentially normal. GES ordered. CT reviewed. (Dixie Sandoval MD) Rain Sweet Nov 09, 2016 12:58 Dixie Sandoval MD Nov 09, 2016 15:20
[2016-11-09] MEDS ORDERED: POTASSIUM CHLORIDE 25 MEQ EFFERVESCENT TAB PO ONE (13:45)
--- NOTE | 2016-11-09 13:46 | HHI.PR ---
Subjective Remarks The patient has not been able to eat yet. She still has significant pain. She has been drinking fluids. She is willing to try Ensure. Discussed with nursing at the bedside. Objective Vitals Vital Signs Date Time Temp Pulse Resp B/P Pulse Ox O2 Delivery O2 Flow Rate FiO2 11/09/16 12:00 97.3 68 17 140/80 99 11/09/16 09:41 72 17 133/83 97 11/09/16 08:00 96.3 69 18 164/83 98 11/09/16 01:00 97.7 68 16 130/70 96 11/08/16 20:00 98.0 72 16 121/66 96 11/08/16 17:04 2.00 11/08/16 16:00 97.4 71 20 120/73 95 I/O 11/08/16 11/08/16 11/08/16 11/09/16 11/09/16 11/09/16 07:00 15:00 23:00 07:00 15:00 23:00 Intake Total 745 ml 1425 ml 480 ml 1360 ml Output Total 450 ml 200 ml Balance 745 ml 975 ml 280 ml 1360 ml Intake Oral 0 ml 480 ml 480 ml 480 ml IV Total 745 ml 345 ml 880 ml Other 600 ml Output Urine Total 450 ml 200 ml # Voids 1 2 2 # Bowel Movements 0 0 0 Result Diagram: 11/09/16 0556 11/09/16 0556 Imaging Last Impressions Abdomen/Pelvis CT 11/08/16 0000 Signed Impressions: Service Date/Time: Tuesday, November 08, 2016 09:32 - CONCLUSION: 1. Dilated common bile duct measuring 11 mm in although this could represent reservoir phenomenon status post cholecystectomy correlation with alkaline phosphatase and bilirubin levels is suggested to rule out biliary obstruction. 2. 9 mm spiculated noncalcified nodule within the right lower lobe which is indeterminate. Outpatient CT of the chest would be helpful for further characterization if clinically indicated. 3. Some free fluid within the cul-de-sac. Deondre iGl MD Objective Remarks GENERAL: This is a cachectic female in no apparent distress. SKIN: No rashes, ecchymoses or lesions. Cool and dry. HEAD: Atraumatic. Normocephalic. No temporal or scalp tenderness. EYES: Pupils equal round and reactive. Extraocular motions intact. No scleral icterus. No injection or drainage. ENT: Nose without bleeding, purulent drainage or septal hematoma. Throat without erythema, tonsillar hypertrophy or exudate. Uvula midline. Airway patent. NECK: Trachea midline. No JVD or lymphadenopathy. Supple, nontender, no meningeal signs. CARDIOVASCULAR: Regular rate and rhythm without murmurs, gallops, or rubs. RESPIRATORY: Poor air movement and diffuse wheezing. GASTROINTESTINAL: Abdomen soft, tender in epigastric area, nondistended. No hepato-splenomegaly, or palpable masses. No guarding. MUSCULOSKELETAL: Extremities without clubbing, cyanosis, or edema. No joint tenderness, effusion, or edema noted. NEUROLOGICAL: Awake and alert. Cranial nerves II through XII intact. Motor and sensory grossly within normal limits. Five out of 5 muscle strength in all muscle groups. Normal speech. PSYCH: Mood and affect appropriate. Medications and IVs Current Medications Medications (Trade) Dose Ordered Sig/Александр Route Start Time Stop Time Status Last Admin (Protonix Inj) 40 mg DAILY IV PUSH 11/08/16 09:00 11/09/16 09:30 (Dilaudid Pf Inj) 1 mg Q3H PRN IV 11/07/16 15:00 11/09/16 12:04 (Ativan Inj) 0.5 mg Q6H PRN IV 11/07/16 15:15 11/09/16 09:45 Enoxaparin Sodium 30 mg 30 mg BID SQ 11/07/16 21:00 11/09/16 09:30 (D5W-NS 1000 ml Inj) 1,000 ml @ 100 mls/hr Q10H IV 11/08/16 03:15 11/09/16 13:33 (Reglan Inj) 10 mg Q8HR IV PUSH 11/08/16 14:00 11/09/16 13:33 (Carafate Liq) 1 gm ACHS PO 11/08/16 16:00 11/09/16 12:04 (Breo Ellipta 100-25 Inh) 1 puff DAILY INH 11/09/16 09:00 11/09/16 09:30 (Roxicodone) 10 mg Q4H PRN PO 11/08/16 17:45 11/09/16 13:34 (Roxicodone) 5 mg Q4H PRN PO 11/08/16 17:45 (K-Lyte Cl Eff) 50 meq ONCE ONCE PO 11/09/16 13:45 11/09/16 13:46 A/P Assessment and Plan Abdominal pain/ Dysphagia Recently diagnosed with median arcuate ligament syndrome and is s/p laparoscopic division of median arcuate ligament. CT abdomen showed: Dilated common bile duct measuring 11 mm; 9 mm spiculated noncalcified nodule within the right lower lobe which is indeterminate; Some free fluid within the cul-de- sac. GI has been consulted and the pt is s/p EGD which revealed gastritis. - follow biopsy from EGD. - pain control and antiemetics as needed. - ADAT. - PPI IV. - further management per GI and GS. COPD Has been on hospice twice and removed herself both times. She uses somebody else 's home oxygen. Has a spiculated lung nodule as noted above. - Duonebs and oxygen as needed. - continue home inhaler. - IS. - Will require home oxygen per walk test. manager delivery following. - outpt follow up with osteopathic resident to determine need for CT thorax in regards to spiculated nodule. Hypoglycemia S/t decreased PO intake. - agree with D5. - follow glucose regularly. - ADAT. Would add Ensure. CVA Chronic. With right arm weakness. - PT eval requested. PPx: Per primary Discharge Planning Per primary Ender Cleveland DO Nov 09, 2016 13:46
[2016-11-09] MEDS ORDERED: OXYGENDME NAS.CANULA (13:48)
[2016-11-09 16:00] VITALS: BP 133/72; PULSE 65; RESP 17; TEMP 98.1; O2SAT 98
[2016-11-09] MEDS: ALPRAZolam 0.5 MG TAB PO PRN (17:42)
[2016-11-09 20:00] VITALS: BP 154/88; PULSE 59; RESP 16; TEMP 97.4; O2SAT 98
[2016-11-10] VITALS (8 sets, daily range): BP systolic 116–163; BP diastolic 71–93; PULSE 62–78; RESP 16–22; TEMP 96.8–99.1; O2SAT 95–99
[2016-11-10] MEDS: ALPRAZolam 0.5 MG TAB PO PRN ×3 (01:26→21:01)
[2016-11-10] MEDS: METOCLOPRAMIDE HCL 10 MG/2 ML VIAL IV PUSH SCH ×3 (05:09→21:04)
[2016-11-10] MEDS: DEXT 5%-NACL 0.9% 1000 ML INJ 1,000 ML IV SCH ×3 (05:09→21:09)
[2016-11-10] MEDS: SUCRALFATE 1 GM/10 ML CUP PO SCH ×4 (05:09→20:59)
[2016-11-10] MEDS: ENOXAPARIN SODIUM 30 MG/0.3 ML SYRINGE SQ SCH ×2 (07:40→21:02)
[2016-11-10] MEDS: PANTOPRAZOLE SODIUM 40 MG VIAL IV PUSH SCH (08:31)
[2016-11-10] MEDS: FLUTICASONE 100 MCG/VILANTEROL 25 MCG INHALER INH SCH (08:31)
[2016-11-10] MEDS: HYDROmorphone HCL PF 1 MG/ML VIAL IV PRN ×4 (08:32→23:27)
[2016-11-10] MEDS ORDERED: LIDOCAINE HCL 1% 20 ML VIAL ONE (08:59)
[2016-11-10] MEDS ORDERED: ALCOHOL, DEHYDRATED (ABSOLUTE) 5 ML VIAL ONE ×2 (10:00→10:38)
[2016-11-10] MEDS ORDERED: MIDAZOLAM HCL 5 MG/5 ML VIAL ONE (10:00)
[2016-11-10] MEDS ORDERED: fentaNYL CITRATE 250 MCG/5 ML AMP ONE (10:00)
--- NOTE | 2016-11-10 10:06 | GIPROC ---
[facility] [address] [facility]. [facility], [address] EGD PROCEDURE REPORT EXAM DATE: 11/08/2016 PATIENT NAME: Lorie Raymond MR #: [id number] BIRTHDATE: 1965 ATTENDING: Dixie Sandoval MD ORDER #: [id number] ENDBAND SIZER: Nasrin Alves Pat STATUS: inpatient INDICATIONS: The patient is a 51 yr old female here for an EGD due to epigastric abdominal pain and vomiting PROCEDURE PERFORMED: EGD w/ biopsy MEDICATIONS: None and Per Anesthesia. TOPICAL ANESTHETIC: CONSENT: The patient understands the risks and benefits of the procedure and understands that these risks include, but are not limited to: sedation, allergic reaction, infection, perforation and/or bleeding. Alternative means of evaluation and treatment include, among others: physical exam, x-rays, and/or surgical intervention. The patient elects to proceed with this endoscopic procedure. medical equipment was checked for proper function. Hand hygiene and appropriate measures for infection prevention was taken. After the risks, benefits and alternatives of the procedure were thoroughly explained, Informed consent was verified, confirmed and timeout was successfully executed by the treatment team. The patient was anesthetized with topical anesthesia and the [employer]ala.[employer]ax [id number]-[id number] endoscope was introduced through the mouth and advanced to the second portion of the duodenum. Retroflexed views revealed no abnormalities The gastroscope was then slowly withdrawn and removed. ESOPHAGUS: The mucosa of the esophagus appeared normal. STOMACH: There was erythematous moderate gastritis in the gastric antrum. A biopsy was performed using cold forceps. Sample sent for histology. DUODENUM: The duodenal mucosa appeared normal. ADVERSE EVENTS: There were no complications. IMPRESSIONS: 1. The esophagus appeared normal 2. There was erythematous gastritis in the gastric antrum; biopsy was performed 3. Normal duodenal mucosa 4. Retroflexed views revealed no abnormalities RECOMMENDATIONS: 1. Anti-reflux regimen 2. Continue PPI 3. Avoid NSAIDS PATIENT CONDITION: stable DISPOSITION: Inpatient REPEAT EXAM: Return 1 year EGD pending biopsy results Dixie Sandoval MD eSigned: Dixie Sandoval MD 11/10/2016 10:06 AM cc:
--- NOTE | 2016-11-10 10:51 | PD.RAD ---
Radiology Note 51 Y/o with severe abdominal pain. The patient states she has had abdominal pain for at least 1 year but in the last 3 months it has become intolerable. Pt. is s/p median arcuate ligament release with no relief from her pain. The risk, benefits and potential complications of celiac plexus neurolysis were discussed in detail. Pt agrees to proceed with the procedure. Ankush Cano MD Nov 10, 2016 10:50
--- NOTE | 2016-11-10 11:49 | HHI.HCPN ---
Pt currently undergoing Celiac Plexus block in radiology. Pt not in the room. Looking at [facility] records, it appears [facility] has been aware of patient since 02/11/2016. She previously have been on [facility] from (12/08/14 to 02/18/2015) for ES COPD. She then was in [facility] (05/13/2015), for neoplasm of the lung but revoked. It has been documented that the nodules in the lung were stable and followed per Fleischner Society guidelines. [facility] was consulted at one point, and from what I gather, [facility] (after reviewing records from [facility] and [facility]) decline patient and feel prognosis was not less than 6 months(which is a hospice criteria). This was from 01/2016). It is now 11/10/2016 eight months later and it appears pt have intractable abdominal pain. It appears [facility] has contacted patient several times, the last time in 06/2016, but patient have not called. I will look further at the records of [facility] and [facility]. As pt just have a celiac block, likely I would not make any med adjustment for the time being. Will revaluate later in the day if pt is available. Thank you. Julio Manjarrez MD Nov 10, 2016 11:49
[2016-11-10] MEDS ORDERED: IOHEXOL 350 MG/ML 10 ML VIAL (for RAD DIAG) ONE (11:58)
--- NOTE | 2016-11-10 12:28 | PD.RAD ---
Post Procedure Progress Note Pre Procedure Diagnosis: (1) Intractable epigastric abdominal pain Post Procedure Diagnosis: (1) Intractable epigastric abdominal pain Procedure Date: Nov 10, 2016 Supervising Radiologist: Ankush Cano Estimated blood loss: None Anesthesia: Local, Conscious Sedation Plan of Activity Patient to Unit: [facility] Additional Comments: Celiac plexus neurolysis preformed. Single needle access from the left via 25 gauge needle. The right side is not accessible. 5-7 cc alcohol administered. Pt tolerated the procedure well. See PACS Report for procedural detail/treatment Ankush Cano MD Nov 10, 2016 12:28
--- NOTE | 2016-11-10 14:32 | HHI.GIFU ---
Subjective Remarks Pt resting in bed, tearful. She is still having significant pain epigastric pain, some nausea, afraid to eat. GES not done today. Objective Vitals I&O Vital Signs Date Time Temp Pulse Resp B/P Pulse Ox O2 Delivery O2 Flow Rate FiO2 11/10/16 12:30 78 22 119/72 96 11/10/16 12:15 77 20 116/71 95 11/10/16 12:00 65 18 133/75 95 11/10/16 11:45 97.3 64 20 120/75 96 11/10/16 08:00 97.8 62 20 137/76 98 11/10/16 05:56 18 11/10/16 00:47 18 11/10/16 00:00 96.8 65 18 133/80 99 11/09/16 20:00 97.4 59 16 154/88 98 11/09/16 16:00 98.1 65 17 133/72 98 I/O 11/09/16 11/09/16 11/09/16 11/10/16 11/10/16 11/10/16 07:00 15:00 23:00 07:00 15:00 23:00 Intake Total 1360 ml 240 ml 240 ml 598 ml 0 ml Output Total 400 ml Balance 1360 ml 240 ml 240 ml 598 ml -400 ml Intake Oral 480 ml 240 ml 240 ml 0 ml IV Total 880 ml 0 ml 598 ml Output Urine Total 400 ml # Voids 2 6 2 # Bowel Movements 0 1 0 0 Laboratory Date/Time Procedure Status Source Growth 11/09/16 09:38 Stool Occult Blood (JERRELL) - Final Complete Stool Stool HEMOCCULT NEGATIVE Imaging Last Impressions Abdomen/Pelvis CT 11/08/16 0000 Signed Impressions: Service Date/Time: Tuesday, November 08, 2016 09:32 - CONCLUSION: 1. Dilated common bile duct measuring 11 mm in although this could represent reservoir phenomenon status post cholecystectomy correlation with alkaline phosphatase and bilirubin levels is suggested to rule out biliary obstruction. 2. 9 mm spiculated noncalcified nodule within the right lower lobe which is indeterminate. Outpatient CT of the chest would be helpful for further characterization if clinically indicated. 3. Some free fluid within the cul-de-sac. Deondre Gil MD Physical Exam HEENT: EOMI; normocephalic; atraumatic; no jaundice. CHEST: wheezes CARDIAC: RRR ABDOMEN: Soft, nondistended, epigastric TTP; no hepatosplenomegaly; bowel sounds are present in all four quadrants. EXTREMITIES: No clubbing, cyanosis, or edema. SKIN: Normal; no rash; no jaundice. CHEF & OWNER: No focal deficits; alert and oriented times three. Assessment and Plan Plan ASSESSMENT - abdominal pain - epigastric area, s/p celiac plexus block. CT 11-08-16--> 1. Dilated common bile duct measuring 11 mm in although this could represent reservoir phenomenon status post cholecystectomy correlation with alkaline phosphatase and bilirubin levels is suggested to rule out biliary obstruction. 2. 9 mm spiculated noncalcified nodule within the right lower lobe which is indeterminate. Outpatient CT of the chest would be helpful for further characterization if clinically indicated. 3. Some free fluid within the cul-de-sac. s/p EGD, essentially normal, path benign. - nausea - after eating. onset "few months ago." GES not done. - dysphagia, bolus sensation - hx GERD, previous dilation 1 year ago. EGD as above - black tarry stool - for 6 months. hemoccult negative. HH WNL currently. PLAN - if pain persists, consider neurontin - if nausea persists consider short term Reglan - PIPER - monitor HH - further recommendations to follow This pt seen by myself and DR Sandoval and this note is written on his behalf Rain Sweet Nov 10, 2016 14:32
--- NOTE | 2016-11-10 15:12 | RADRPT ---
EXAM DATE/TIME: 11/10/2016 10:59 [facility] COMPARISON: CT ABDOMEN & PELVIS W CONTRAST, November 08, 2016, 9:32. INDICATIONS : Chronic abdominal pain. MEDICATION(S): 1.) 3 mg midazolam (Versed) IV 2.) 200 mcg fentanyl (Sublimaze) IV DEVICE(S): 1.) 25 gauge Spinal needle Pre-procedure pain level was Pre-procedure pain level was MEDICAL HISTORY : Diverticullitis. Ulcers. Irritable bowel syndrome. Liver disease, GERD, MRSA, stroke, myocardial infa rction, COPD, Rheumatoid arthritis. SURGICAL HISTORY : Appendectomy. Cholecystectomy. Hysterectomy. ENCOUNTER: Initial ACUITY: 1 day PAIN SCORE: 4/10 LOCATION: Bilateral upper quadrant PROCEDURE : CT guided celiac plexus ablation. The risks, benefits and alternatives to the procedure were explained and verbal and written consent w as obtained. Using automated exposure control and adjustment of the mA and/or kV according to patien t size, radiation dose was kept as low as reasonably achievable to obtain optimal diagnostic quality images. The site was prepped in sterile fashion. Full sterile technique was used, including cap, ma sk, sterile gloves and gown and a large sterile sheet. Hand hygiene and 2% chlorhexidine and/or beta dine/alcohol prep was utilized per protocol for cutaneous antisepsis. The skin and subcutaneous tiss ues were infiltrated with local anesthetic solution. The patient was assessed on CT imaging. There is a very small window down to the plexus from the left side. A 25 gauge needle was advanced to the skin of the back along the lateral margin of the L1 vert ebral body down to the region of the celiac plexus. Approximately 0.5 cc of contrast was administered to confirm placement. Following this a cocktail consisting of 0.5 cc of contrast and 5 cc of anhydrous alcohol were adminis tered through the needle without difficulty. The patient tolerated the procedure well. CONCLUSION: Uncomplicated celiac plexus block as above Ankush Cano MD on November 10, 2016 at 15:07 Board Certified Radiologist. This report was verified electronically.
[2016-11-10] MEDS: DIAZEPAM 10 MG TAB PO PRN (16:20)
--- NOTE | 2016-11-10 16:35 | HHI.PR ---
Subjective Subjective Notes Resting in bed Emotional at bedside Objective Vitals/I&O Vital Signs Date Time Temp Pulse Resp B/P Pulse Ox O2 Delivery O2 Flow Rate FiO2 11/10/16 12:30 78 22 119/72 96 11/10/16 11:45 97.3 11/08/16 17:04 2.00 Labs Date/Time Procedure Status Source Growth 11/09/16 09:38 Stool Occult Blood (JERRELL) - Final Complete Stool Stool HEMOCCULT NEGATIVE Cardiovascular: Regular Lungs: Clear Abdomen: Non-distended, Other (lap sites healed; LEFT sided abdominal pain ) Extremities: No edema A/P Assessment and Plan 51 year old female s/p Laparoscopic division of median arcuate ligament in September 2016; now back with abdominal pain and weight loss s/p celiac plexus block -s/p EGD -Regular diet--added Ensure shakes ---patient prefers chocolate -OOB and mobilize -Pain control -IVF -Palliative Care following Attending Statement The exam, history, and the medical decision-making described in the above note were completed with the assistance of the mid-level provider. I reviewed and agree with the findings presented. I attest that I had a [id number] encounter with the patient on the same day, and personally performed and documented my assessment and findings in the medical record. abdominal exam: non-distended, no guarding or peritonitis s/p celiac plexus block, hopefully will have some pain relief Anna Botello Nov 10, 2016 16:35 Giancarlo Cheney MD Nov 17, 2016 10:32
--- NOTE | 2016-11-10 17:14 | PD.CONS ---
Consult Service Palliative Care Consult Requested By Giancarlo Stephens Primary Care Physician Jonn Stephenson, Reason for Consultation a. To assist with evaluation and management of symptoms including:pain b. To assist medical decision maker(s) with: better understanding of current medical conditions; weighing benefits/burdens of medical treatment options; making medical treatment decisions. HPI History of Present Illness Patient is a 51-year-old with a past medical history . Patient had median arcuate ligament syndrome, and underwent surgery on 10/11/2016 laparoscopically. She was subsequently sent home . Patient presented to [place] with severe abdominal pain and nausea when eating 11/07/2016. Patient states she would get severe sharp stabbing pain in the abdomen radiating down her groin and radiating to her back. The pain would be worse with eating so she avoids food. She is expressed that she has follow-up with haul driver but does not qualify for her own home O2. Pt is not on O2 while I was talking to her and does not appear to be dyspneic. She has been on hospice 2 times. Looking at [facility] records, it appears [facility] has been aware of patient since 02/11/2016. She previously have been on [facility] from (12/08/14 to 02/18/2015) for ES COPD. She then was in [facility] (05/13/2015), for neoplasm of the lung but revoked. It has been documented that the nodules in the lung were stable and followed per Fleischner Society guidelines. [facility] was consulted at one point, and from what I gather, [facility] (after reviewing records from [facility] and [facility]) decline patient and feel prognosis was not less than 6 months(which is a hospice criteria). This was from 01/2016). It is now 11/10/2016 eight months later and it appears pt have intractable abdominal pain. It appears [facility] has contacted patient several times, the last time in 06/2016, but patient have not called. Palliative care was consulted to assist with pain management and review goals of care. Today she has just had a celiac plexus block. She continued to endorse in the abdominal area between the umbilicus and the epigastric region. Pain is made worse by eating. There is also associated nausea. 12/04. Function/Cognitive Trajectory Pt say she is more tired, could not eat, and in pain. Fatigued Review of Systems Constitutional: COMPLAINS OF: Fatigue Respiratory: COMPLAINS OF: Shortness of breath Gastrointestinal: COMPLAINS OF: Diarrhea, Nausea, Vomiting Past Family Social History Coded Allergies: Aspirin (Verified Allergy, Severe, 10/11/16) Contrast Media (Verified Allergy, Intermediate, HIVES, 10/11/16) *MDRO Multi-Drug Resistant Organism (Unverified Adverse Reaction, Severe, MRSA, 11/09/16) MRSA PCR (nares) POSITIVE - 11/09/16 Past Medical History COPD emphysema osteoporosis GERD depression sarcoidosis Past Surgical History laparoscopic ligation arcuate ligament hysterectomy tonsillectomy cholecystectomy removal exillary glands r/t sarcoidodid Reported Medications Promethazine Alprazolam Diazepam Albuterol Flexeril Breo Ellipta Current Medications Medications (Trade) Dose Ordered Sig/Александр Route Start Time Stop Time Status Last Admin (Protonix Inj) 40 mg DAILY IV PUSH 11/08/16 09:00 11/10/16 08:31 (Dilaudid Pf Inj) 1 mg Q3H PRN IV 11/07/16 15:00 11/10/16 13:49 Enoxaparin Sodium 30 mg 30 mg BID SQ 11/07/16 21:00 11/09/16 21:05 (D5W-NS 1000 ml Inj) 1,000 ml @ 100 mls/hr Q10H IV 11/08/16 03:15 11/10/16 05:09 (Reglan Inj) 10 mg Q8HR IV PUSH 11/08/16 14:00 11/10/16 13:49 (Carafate Liq) 1 gm ACHS PO 11/08/16 16:00 11/10/16 16:21 (Breo Ellipta 100-25 Inh) 1 puff DAILY INH 11/09/16 09:00 11/10/16 08:31 (Roxicodone) 10 mg Q4H PRN PO 11/08/16 17:45 11/10/16 16:21 (Roxicodone) 5 mg Q4H PRN PO 11/08/16 17:45 (Valium) 10 mg Q12H PRN PO 11/09/16 16:00 11/10/16 16:20 (Xanax) 0.5 mg Q6H PRN PO 11/09/16 16:00 11/10/16 09:40 Family History colon ca - brother PAD breast ca - sister Substance Use Tobacco: Smoked a few cigarettes per day Alcohol: Does not drink Prescription med abuse: She denies Illicits: She denies Psychosocial History She was born in [place], Raised in the [place]. . have children. Jerome Raymond spouse. Living Will: Never completed Health Care Surrogate: Never completed Durable Power of [employer] Impregnating Range Tender: Never completed (she had recinded her DNR while she was in hospice) Physical Exam Vital Signs Date Time Temp Pulse Resp B/P Pulse Ox O2 Delivery O2 Flow Rate FiO2 11/10/16 12:30 78 22 119/72 96 11/10/16 12:15 77 20 116/71 95 11/10/16 12:00 65 18 133/75 95 11/10/16 11:45 97.3 64 20 120/75 96 11/10/16 08:00 97.8 62 20 137/76 98 11/10/16 05:56 18 11/10/16 00:47 18 11/10/16 00:00 96.8 65 18 133/80 99 11/09/16 20:00 97.4 59 16 154/88 98 11/09/16 11/10/16 19:00 07:00 Intake Total 240 ml 838 ml Balance 240 ml 838 ml Intake Oral 240 ml 240 ml IV Total 598 ml # Voids 6 2 # Bowel Movements 1 0 Exam CONSTITUTIONAL/GENERAL: This is thin frail middle age female. Was not tearful on my visit, and appears relatively comfortable. SKIN: No jaundice, rashes, or lesions. Scar on abdomen s/p laproscopy procedure HEAD: Atraumatic. Normocephalic. EYES: Pupils equal and round and reactive. Extraocular motions intact. No scleral icterus. Fundi not examined. ENT: Hearing grossly normal. Nose without bleeding or purulent drainage. Throat without visible erythema, exudates, masses, or lesions. NECK: Trachea midline. Supple, nontender. No palpable thyroid enlargement or nodularity. CARDIOVASCULAR: Regular rate and rhythm without murmurs, gallops, or rubs. No JVD. Peripheral pulses symmetric. RESPIRATORY/CHEST: Symmetric, unlabored respirations. Clear to auscultation. Breath sounds equal bilaterally. No wheezes, rales, or rhonchi. GASTROINTESTINAL: Abdomen soft, non-tender, nondistended. No hepato-splenomegaly , or palpable masses. No guarding. Bowel sounds present. GENITOURINARY: Without palpable bladder distension. MUSCULOSKELETAL: Extremities without clubbing, cyanosis, or edema. No joint tenderness or effusion noted. No calf tenderness. No mottling or clubbing. LYMPHATICS: No palpable cervical or supraclavicular adenopathy. NEUROLOGICAL: Awake and alert. Motor and sensory grossly within normal limits. Follows commands. Cognitively sharp. Moves all extremities. PSYCHIATRIC: No obvious anxiety/depression. no apparent hallucinations or other psychotic thought process. Diagnostic Tests Laboratory Laboratory Tests Test 11/09/16 11/09/16 05:56 09:38 White Blood Count 8.0 TH/MM3 (4.0-11.0) Red Blood Count 4.83 MIL/MM3 (4.00-5.30) Hemoglobin 12.5 GM/DL (11.6-15.3) Hematocrit 39.1 % (35.0-46.0) Mean Corpuscular Volume 81.1 FL (80.0-100.0) Mean Corpuscular Hemoglobin 25.9 PG (27.0-34.0) Mean Corpuscular Hemoglobin 31.9 % Concent (32.0-36.0) Red Cell Distribution Width 15.0 % (11.6-17.2) Platelet Count 190 TH/MM3 (150-450) Mean Platelet Volume 8.4 FL (7.0-11.0) Hematology Comments Sodium Level 142 MEQ/L (136-145) Potassium Level 3.4 MEQ/L (3.5-5.1) Chloride Level 107 MEQ/L (98-107) Carbon Dioxide Level 29.1 MEQ/L (21.0-32.0) Anion Gap 6 MEQ/L (5-15) Blood Urea Nitrogen 7 MG/DL (7-18) Creatinine 0.56 MG/DL (0.50-1.00) Estimat Glomerular Filtration 114 ML/MIN Rate (>89) Random Glucose 100 MG/DL (74-106) Calcium Level 8.5 MG/DL (8.5-10.1) Magnesium Level 1.7 MG/DL (1.5-2.5) Nasal Screen MRSA (PCR) MRSA DETECTED (NOT DETECT) Result Diagram: 11/09/16 0556 11/09/16 0556 Microbiology Microbiology Date/Time Procedure Status Source Growth 11/09/16 09:38 Stool Occult Blood (JERRELL) - Final Complete Stool Stool HEMOCCULT NEGATIVE Imaging Last Impressions Spine CT 11/10/16 0000 Signed Impressions: Service Date/Time: Thursday, November 10, 2016 10:59 - CONCLUSION: Uncomplicated celiac plexus block as above Ankush Cano MD Abdomen/Pelvis CT 11/08/16 0000 Signed Impressions: Service Date/Time: Tuesday, November 08, 2016 09:32 - CONCLUSION: 1. Dilated common bile duct measuring 11 mm in although this could represent reservoir phenomenon status post cholecystectomy correlation with alkaline phosphatase and bilirubin levels is suggested to rule out biliary obstruction. 2. 9 mm spiculated noncalcified nodule within the right lower lobe which is indeterminate. Outpatient CT of the chest would be helpful for further characterization if clinically indicated. 3. Some free fluid within the cul-de-sac. Deondre Gil MD Procedures Plexux block 11/10/2016 by specials Patient/Family Conference Present at Family Conference: Jerome Raymond Family Conference Time (mins): 45 Family Conference Location: Bedside Issues Discussed: * Palliative care role, purpose, approach * Additional medical, psychosocial, and spiritual history * Patients general health, functional status, and cognitive changes in the months leading up to the current hospitalization * Patient/family understanding of the current medical problems * Patient/family understanding of prognosis * Patients goals of care as best understood from advance directives and/or conversations and/or values * Current medical treatment options and benefits/burdens of those options * Likely scenarios comparing ongoing aggressive care with a transition to comfort measures only * Questions answered to the best of my ability * Palliative care contact information provided Assessment and Plan Disease Oriented Problem List: (1) Chronic obstructive pulmonary disease (2) Intractable epigastric abdominal pain (3) Sarcoidosis Symptom Scale: (1) Nausea 0-10 Scale: Unable to quantify (2) Pain 0-10 Scale: 8 Pertinent Non-Medical Issues Psychosocial: Spiritual: Legal: Ethical issues impacting care: Important Contacts Jerome Raymond Prognosis 51 year old with copd, sarcoidosis, lung mass, and now abdominal pain and intractable nausea and vomiting. Prognosis is guarded. Code Status: Full Code Plan ==Capacity- has capacity to make medical decision. == Health Care Proxy is Spouse. == Code Status: Full code. Not sure about peg and trach. She had been intubated in the past. Pt undecided about trach or peg. I encourage open discussion with her family. ==Hospice likely will need to look back at previous hospice records with [facility]. Her COPD does not appear to be end stage, not O2 dependent per pt. Her lung nodules are being monitored. Her hospice diagnosis on [facility] are for COPD, and Lung Cancer. She previously have been on [facility] from (12/08/14 to 02/18/2015) for ES COPD. She then was in [facility] (05/13/2015), for neoplasm of the lung but revoked. It appears that she has survive longer than the 6 months while being in hospice, and a prognosis of < 6 months is critical to meet hospice criteria. [facility] has declined her in the past. However, currently her issue is her pain and nutritional status, which may put her at a different clinical level than before. == Goals of care: Further more, currently her goals are aggressive. She had been in hospice in the past and have felt hospice overmedicated her. She remains a full code. I spoke extensively with her and at the bedside, that it may be difficult to find a happy medium where pain is well controlled with out her being sedated. Her goals are not hospice oriented or appropriate, should she decline, like she has in the past she would want to go back to the hospital. Her main concern is pain control and not ready for comfort measures only. == Pain/nausea- I am unsure of etiology, likely multifactorial, GI , chronic pain. She does appear to have a high opiod tolerance. Pt just have a celiac block, likely I would not make any opioid adjustment for the time being. I would suggest addition of gabapentin. Continue reglan. == Pt knows palliative care will not be here over the weekend, but would be available on Sunday. case was d/w with Dr. Cleveland. Time Spent Total Floor Time (mins): 60 Face to Face Time (mins): 45 >50% Counseling/Coord of Care: Yes Thank you for the opportunity to participate in the care of Ms. Raymond. Attestation To help prompt me to consider important information that might be impacting today's encounter and assessment, information from prior notes written by myself or my colleagues may have been "brought forward" into today's note. My signature on this note, however, is an attestation that I personally performed the exam, history, and/or decision-making noted today, and, unless otherwise indicated, the interactions with patient, family, and staff as well as the review of records all occurred today. I also attest that the listed assessment and stated plan reflect my best clinical judgment today based on the combination of historical information, prior notes, and today's exam/ interactions. When time spent is documented, it refers only to time spent today by the signer, or if indicated, combined time spent today by collaborating physician/nurse practitioner. Julio Manjarrez MD Nov 10, 2016 17:14
--- NOTE | 2016-11-10 17:27 | HHI.PR ---
Subjective Remarks The patient was resting comfortably in bed. She says her pain was not improved after having the celiac plexus block. She talked with palliative care and surgery earlier. Discussed with nursing. Family at the bedside. Objective Vitals Vital Signs Date Time Temp Pulse Resp B/P Pulse Ox O2 Delivery O2 Flow Rate FiO2 11/10/16 16:00 96.9 78 19 163/93 97 11/10/16 12:30 78 22 119/72 96 11/10/16 12:15 77 20 116/71 95 11/10/16 12:00 65 18 133/75 95 11/10/16 11:45 97.3 64 20 120/75 96 11/10/16 08:00 97.8 62 20 137/76 98 11/10/16 05:56 18 11/10/16 00:47 18 11/10/16 00:00 96.8 65 18 133/80 99 11/09/16 20:00 97.4 59 16 154/88 98 I/O 11/09/16 11/09/16 11/09/16 11/10/16 11/10/16 11/10/16 07:00 15:00 23:00 07:00 15:00 23:00 Intake Total 1360 ml 240 ml 240 ml 598 ml 240 ml Output Total 400 ml Balance 1360 ml 240 ml 240 ml 598 ml -160 ml Intake Oral 480 ml 240 ml 240 ml 240 ml IV Total 880 ml 0 ml 598 ml Output Urine Total 400 ml # Voids 2 6 2 # Bowel Movements 0 1 0 0 Result Diagram: 11/09/16 0556 11/09/16 0556 Imaging Last Impressions Spine CT 11/10/16 0000 Signed Impressions: Service Date/Time: Thursday, November 10, 2016 10:59 - CONCLUSION: Uncomplicated celiac plexus block as above Ankush Cano MD Abdomen/Pelvis CT 11/08/16 0000 Signed Impressions: Service Date/Time: Tuesday, November 08, 2016 09:32 - CONCLUSION: 1. Dilated common bile duct measuring 11 mm in although this could represent reservoir phenomenon status post cholecystectomy correlation with alkaline phosphatase and bilirubin levels is suggested to rule out biliary obstruction. 2. 9 mm spiculated noncalcified nodule within the right lower lobe which is indeterminate. Outpatient CT of the chest would be helpful for further characterization if clinically indicated. 3. Some free fluid within the cul-de-sac. Deondre Gil MD Objective Remarks GENERAL: This is a cachectic female in no apparent distress. SKIN: No rashes, ecchymoses or lesions. Cool and dry. HEAD: Atraumatic. Normocephalic. No temporal or scalp tenderness. EYES: Pupils equal round and reactive. Extraocular motions intact. No scleral icterus. No injection or drainage. ENT: Nose without bleeding, purulent drainage or septal hematoma. Throat without erythema, tonsillar hypertrophy or exudate. Uvula midline. Airway patent. NECK: Trachea midline. No JVD or lymphadenopathy. Supple, nontender, no meningeal signs. CARDIOVASCULAR: Regular rate and rhythm without murmurs, gallops, or rubs. RESPIRATORY: Poor air movement and diffuse wheezing. GASTROINTESTINAL: Abdomen soft, tender in epigastric area, nondistended. No hepato-splenomegaly, or palpable masses. No guarding. MUSCULOSKELETAL: Extremities without clubbing, cyanosis, or edema. No joint tenderness, effusion, or edema noted. NEUROLOGICAL: Awake and alert. Cranial nerves II through XII intact. Motor and sensory grossly within normal limits. Five out of 5 muscle strength in all muscle groups. Normal speech. PSYCH: Mood and affect appropriate. Procedures Celiac plexus block 11/10/16 Medications and IVs Current Medications Medications (Trade) Dose Ordered Sig/Александр Route Start Time Stop Time Status Last Admin (Protonix Inj) 40 mg DAILY IV PUSH 11/08/16 09:00 11/10/16 08:31 (Dilaudid Pf Inj) 1 mg Q3H PRN IV 11/07/16 15:00 11/10/16 13:49 Enoxaparin Sodium 30 mg 30 mg BID SQ 11/07/16 21:00 11/09/16 21:05 (D5W-NS 1000 ml Inj) 1,000 ml @ 100 mls/hr Q10H IV 11/08/16 03:15 11/10/16 05:09 (Reglan Inj) 10 mg Q8HR IV PUSH 11/08/16 14:00 11/10/16 13:49 (Carafate Liq) 1 gm ACHS PO 11/08/16 16:00 11/10/16 16:21 (Breo Ellipta 100-25 Inh) 1 puff DAILY INH 11/09/16 09:00 11/10/16 08:31 (Roxicodone) 10 mg Q4H PRN PO 11/08/16 17:45 11/10/16 16:21 (Roxicodone) 5 mg Q4H PRN PO 11/08/16 17:45 (Valium) 10 mg Q12H PRN PO 11/09/16 16:00 11/10/16 16:20 (Xanax) 0.5 mg Q6H PRN PO 11/09/16 16:00 11/10/16 09:40 A/P Assessment and Plan Abdominal pain/ Dysphagia Recently diagnosed with median arcuate ligament syndrome and is s/p laparoscopic division of median arcuate ligament. CT abdomen showed: Dilated common bile duct measuring 11 mm; 9 mm spiculated noncalcified nodule within the right lower lobe which is indeterminate; Some free fluid within the cul-de- sac. GI has been consulted and the pt is s/p EGD which revealed gastritis. Status post celiac plexus block by interventional radiology. - follow biopsy from EGD. - pain control and antiemetics as needed. - ADAT. - PPI IV. - further management per GI and GS. Gastric emptying study pending. - Follow up with palliative care. COPD Has been on hospice twice and removed herself both times. She uses somebody else 's home oxygen. Has a spiculated lung nodule as noted above. - Duonebs and oxygen as needed. - continue home inhaler. - IS. - Will require home oxygen per walk test. manager access following. - outpt follow up with associate financial planner to determine need for CT thorax in regards to spiculated nodule. Hypoglycemia S/t decreased PO intake. - agree with D5. - follow glucose regularly. - ADAT. Would add Ensure. CVA Chronic. With right arm weakness. - PT eval requested. PPx: Per primary Discharge Planning Per primary Ender Cleveland DO Nov 10, 2016 17:27
[2016-11-11] VITALS: BP 116/72; PULSE 70; RESP 16; TEMP 98.3; O2SAT 97
[2016-11-11] MEDS: ALPRAZolam 0.5 MG TAB PO PRN ×4 (03:07→22:30)
[2016-11-11] MEDS: SUCRALFATE 1 GM/10 ML CUP PO SCH ×4 (05:18→21:59)
[2016-11-11] MEDS: METOCLOPRAMIDE HCL 10 MG/2 ML VIAL IV PUSH SCH ×3 (05:19→21:59)
[2016-11-11] MEDS: HYDROmorphone HCL PF 1 MG/ML VIAL IV PRN ×5 (05:19→22:30)
[2016-11-11] MEDS: DIAZEPAM 10 MG TAB PO PRN ×2 (05:19→17:41)
[2016-11-11 05:55] LABS: BICARBONATE 29.4 MEQ/L (21.0-32.0); MAGNESIUM 1.6 MG/DL (1.5-2.5); POTASSIUM 3.2 MEQ/L (3.5-5.1)
[2016-11-11] MEDS: DEXT 5%-NACL 0.9% 1000 ML INJ 1,000 ML IV SCH ×2 (07:31→22:00)
[2016-11-11 08:00] VITALS: BP 127/90; PULSE 75; RESP 18; TEMP 96.7; O2SAT 98
--- NOTE | 2016-11-11 08:23 | HHI.PR ---
Subjective Remarks Patient seen and examined this am. Vitals are stable and she is afebrile. Opened ensure shake yesterday and let it sit overnight then tried to drink it in the am, immediately had vomiting. Feels like let it sit out too long. Had very small BM yesterday. Continues to have abd pain, spoke with GI about feeding tube. Denies SOB or breathing difficulties, no chest pain. Objective Vital Signs Date Time Temp Pulse Resp B/P Pulse Ox O2 Delivery O2 Flow Rate FiO2 11/11/16 08:00 96.7 75 18 127/90 98 11/11/16 00:00 98.3 70 16 116/72 97 11/10/16 20:00 99.1 66 16 118/73 98 11/10/16 16:00 96.9 78 19 163/93 97 11/10/16 12:30 78 22 119/72 96 11/10/16 12:15 77 20 116/71 95 11/10/16 12:00 65 18 133/75 95 11/10/16 11:45 97.3 64 20 120/75 96 I/O 11/10/16 11/10/16 11/10/16 11/11/16 11/11/16 11/11/16 07:00 15:00 23:00 07:00 15:00 23:00 Intake Total 598 ml 240 ml 982 ml 1186 ml Output Total 400 ml Balance 598 ml -160 ml 982 ml 1186 ml Intake Oral 240 ml 240 ml 360 ml IV Total 598 ml 742 ml 826 ml Output Urine Total 400 ml # Voids 2 3 # Bowel Movements 0 0 0 Result Diagram: 11/09/16 0556 11/11/16 0423 Imaging Last Impressions Spine CT 11/10/16 0000 Signed Impressions: Service Date/Time: Thursday, November 10, 2016 10:59 - CONCLUSION: Uncomplicated celiac plexus block as above Ankush Cano MD Abdomen/Pelvis CT 11/08/16 0000 Signed Impressions: Service Date/Time: Tuesday, November 08, 2016 09:32 - CONCLUSION: 1. Dilated common bile duct measuring 11 mm in although this could represent reservoir phenomenon status post cholecystectomy correlation with alkaline phosphatase and bilirubin levels is suggested to rule out biliary obstruction. 2. 9 mm spiculated noncalcified nodule within the right lower lobe which is indeterminate. Outpatient CT of the chest would be helpful for further characterization if clinically indicated. 3. Some free fluid within the cul-de-sac. Deondre Gil MD Objective Remarks GENERAL: tired appearing, thin SKIN: Warm and dry. HEAD: Atraumatic. Normocephalic. EYES: Pupils equal and round. No scleral icterus. No injection or drainage. ENT: No nasal bleeding or discharge. Mucous membranes pink and moist. NECK: Trachea midline. No JVD. CARDIOVASCULAR: Regular rate and rhythm. RESPIRATORY: No accessory muscle use. Clear to auscultation. Lateral Breath sounds with end expiratory wheezing. GASTROINTESTINAL: Abdomen soft, tenderness to palpation diffusely. MUSCULOSKELETAL: Extremities without clubbing, cyanosis, or edema. No obvious deformities. NEUROLOGICAL: Awake and alert. No obvious cranial nerve deficits. Motor grossly within normal limits. Normal speech. PSYCHIATRIC: Appropriate mood and affect; insight and judgment normal. A/P Problem List: (1) Median arcuate ligament syndrome ICD Code: I77.4 (2) Intractable epigastric abdominal pain ICD Code: R10.13 (3) Chronic obstructive pulmonary disease ICD Code: J44.9 Assessment and Plan 51 yo female admitted to gen surg with medicine consult for: Abdominal pain/ Dysphagia Recently diagnosed with median arcuate ligament syndrome and is s/p laparoscopic division of median arcuate ligament. CT abdomen showed: Dilated common bile duct measuring 11 mm; 9 mm spiculated noncalcified nodule within the right lower lobe which is indeterminate; Some free fluid within the cul-de- sac. GI has been consulted and the pt is s/p EGD which revealed gastritis. Status post celiac plexus block by interventional radiology. - biopsy from EGD: gastric mucosa without significant histopathologic abnormality - pain control and antiemetics as needed. - seen by GI: if pain persists consider neurontin, if nausea persist consider reglan. PIPER, monitor H/H - possible feeding tube next week - further management per GI and surgery COPD Has been on hospice twice and removed herself both times. She uses somebody else 's home oxygen. Has a spiculated lung nodule as noted above. - Duonebs and oxygen as needed. - continue home inhaler. - IS. - s/p home walk test, failed, will need home O2 CM to assist - outpt follow up with gas meter mechanic to determine need for CT thorax in regards to spiculated nodule. Hypoglycemia S/t decreased PO intake. - agree with D5. - follow glucose regularly. - ADAT. Would add Ensure. CVA Chronic. With right arm weakness. - PT eval requested. PPx: Per primary Discharge Planning D/C per primary. Maryam Milian MD R3 Nov 11, 2016 08:23
[2016-11-11] MEDS: PANTOPRAZOLE SODIUM 40 MG VIAL IV PUSH SCH (08:50)
[2016-11-11] MEDS: ENOXAPARIN SODIUM 30 MG/0.3 ML SYRINGE SQ SCH ×2 (08:50→21:59)
[2016-11-11] MEDS: FLUTICASONE 100 MCG/VILANTEROL 25 MCG INHALER INH SCH (08:53)
--- NOTE | 2016-11-11 09:46 | HHI.PR ---
Subjective Subjective Notes In good spirits, despite severe abdominal pain. Coming to terms with possibility of feeding tube. Took some ensure yesterday, but threw it up. Objective Vitals/I&O Vital Signs Date Time Temp Pulse Resp B/P Pulse Ox O2 Delivery O2 Flow Rate FiO2 11/11/16 08:00 96.7 75 18 127/90 98 11/08/16 17:04 2.00 Labs Laboratory Tests Test 11/11/16 04:23 Sodium Level 140 Potassium Level 3.2 Chloride Level 103 Carbon Dioxide Level 29.4 Anion Gap 8 Blood Urea Nitrogen 1 Creatinine 0.45 Estimat Glomerular Filtration 147 Rate Random Glucose 79 Calcium Level 8.5 Phosphorus Level 3.9 Magnesium Level 1.6 Date/Time Procedure Status Source Growth 11/09/16 09:38 Stool Occult Blood (JERRELL) - Final Complete Stool Stool HEMOCCULT NEGATIVE Abdomen: Non-distended, Other (tender to palpation, incisions all healed.) Extremities: No edema A/P Assessment and Plan One month postop lap division of median arcuate ligament. s/p celiac block without resolution of the discomfort. EGD showed gastritis. She is anticipating feeding tube placement next week. Blayne Fitzpatrick MD Nov 11, 2016 09:46
[2016-11-11] MEDS: POTASSIUM CHLORIDE 10 MEQ CONTROLLED RELEASE TAB PO SCH ×2 (11:00→22:29)
[2016-11-11] MEDS: GABAPENTIN 300 MG CAP PO SCH ×2 (11:01→15:41)
[2016-11-11 12:00] VITALS: BP 127/69; PULSE 65; RESP 16; TEMP 97.8; O2SAT 97
--- NOTE | 2016-11-11 15:15 | HHI.GIFU ---
Subjective Remarks Pt says she is still with pain despite celiac plexus block. She at 1 bite of bologna sandwich. She says she cannot tolerate gabapentin, it makes her vomit, and lyrica she has taken and it was stopped and she isn't sure why. She still has nausea. She is amenable to having feeding tube. (Rain Sweet) Objective Vitals I&O Vital Signs Date Time Temp Pulse Resp B/P Pulse Ox O2 Delivery O2 Flow Rate FiO2 11/11/16 12:00 97.8 65 16 127/69 97 11/11/16 08:00 96.7 75 18 127/90 98 11/11/16 00:00 98.3 70 16 116/72 97 11/10/16 20:00 99.1 66 16 118/73 98 11/10/16 16:00 96.9 78 19 163/93 97 I/O 11/10/16 11/10/16 11/10/16 11/11/16 11/11/16 11/11/16 07:00 15:00 23:00 07:00 15:00 23:00 Intake Total 598 ml 240 ml 982 ml 1186 ml 360 ml Output Total 400 ml 700 ml Balance 598 ml -160 ml 982 ml 1186 ml -340 ml Intake Oral 240 ml 240 ml 360 ml 360 ml IV Total 598 ml 742 ml 826 ml Output Urine Total 400 ml 700 ml # Voids 2 3 3 # Bowel Movements 0 0 0 0 Laboratory Laboratory Tests Test 11/11/16 04:23 Sodium Level 140 Potassium Level 3.2 Chloride Level 103 Carbon Dioxide Level 29.4 Anion Gap 8 Blood Urea Nitrogen 1 Creatinine 0.45 Estimat Glomerular Filtration 147 Rate Random Glucose 79 Calcium Level 8.5 Phosphorus Level 3.9 Magnesium Level 1.6 Date/Time Procedure Status Source Growth 11/09/16 09:38 Stool Occult Blood (JERRELL) - Final Complete Stool Stool HEMOCCULT NEGATIVE Imaging Last Impressions Spine CT 11/10/16 0000 Signed Impressions: Service Date/Time: Thursday, November 10, 2016 10:59 - CONCLUSION: Uncomplicated celiac plexus block as above Ankush Cano MD Abdomen/Pelvis CT 11/08/16 0000 Signed Impressions: Service Date/Time: Tuesday, November 08, 2016 09:32 - CONCLUSION: 1. Dilated common bile duct measuring 11 mm in although this could represent reservoir phenomenon status post cholecystectomy correlation with alkaline phosphatase and bilirubin levels is suggested to rule out biliary obstruction. 2. 9 mm spiculated noncalcified nodule within the right lower lobe which is indeterminate. Outpatient CT of the chest would be helpful for further characterization if clinically indicated. 3. Some free fluid within the cul-de-sac. Deondre Gil MD Physical Exam HEENT: EOMI; normocephalic; atraumatic; no jaundice. CHEST: wheezes CARDIAC: RRR ABDOMEN: Soft, nondistended, epigastric TTP; no hepatosplenomegaly; bowel sounds faint EXTREMITIES: No clubbing, cyanosis, or edema. SKIN: Normal; no rash; no jaundice. CERTIFIED FLIGHT INSTRUCTOR: No focal deficits; alert and oriented times three. (Rain Sweet) Assessment and Plan Plan ASSESSMENT - abdominal pain - epigastric area, s/p celiac plexus block. CT 11-08-16--> 1. Dilated common bile duct measuring 11 mm in although this could represent reservoir phenomenon status post cholecystectomy correlation with alkaline phosphatase and bilirubin levels is suggested to rule out biliary obstruction. 2. 9 mm spiculated noncalcified nodule within the right lower lobe which is indeterminate. Outpatient CT of the chest would be helpful for further characterization if clinically indicated. 3. Some free fluid within the cul-de-sac. s/p EGD, essentially normal, path benign. She says she cannot tolerate gabapentin, it makes her vomit, and lyrica she has taken and it was stopped and she isn't sure why. Palliative care following. - nausea - after eating. onset "few months ago." GES not done. - dysphagia, bolus sensation - hx GERD, previous dilation 1 year ago. EGD as above - black tarry stool - for 6 months. hemoccult negative. HH WNL currently. PLAN - GJ vs PEG - consider short course Reglan for nausea - PIPER - monitor HH - further recommendations to follow This pt seen by myself and DR Riggs and this note is written on his behalf ( Rain Sweet) Physician Comments Patient seen and examined Agree with above Continue with current supportive care Monitor labs It would be preferable to pursue a GJ tube placement especially in view of her chronic nausea (Julio Riggs MD) Rain Sweet Nov 11, 2016 15:15 Julio Riggs MD Nov 11, 2016 17:01
[2016-11-11 17:00] VITALS: BP 109/69; PULSE 70; RESP 16; TEMP 98.3; O2SAT 97
[2016-11-11 20:00] VITALS: BP 111/70; PULSE 72; RESP 20; TEMP 96.7; O2SAT 98
[2016-11-12 00:04] VITALS: BP 128/73; PULSE 65; RESP 18; TEMP 97.6; O2SAT 98
[2016-11-12] MEDS: HYDROmorphone HCL PF 1 MG/ML VIAL IV PRN ×6 (02:04→23:24)
[2016-11-12] MEDS: METOCLOPRAMIDE HCL 10 MG/2 ML VIAL IV PUSH SCH ×3 (05:15→20:45)
[2016-11-12] MEDS: DIAZEPAM 10 MG TAB PO PRN (05:15)
[2016-11-12] MEDS: DEXT 5%-NACL 0.9% 1000 ML INJ 1,000 ML IV SCH ×2 (06:30→17:09)
[2016-11-12] MEDS: SUCRALFATE 1 GM/10 ML CUP PO SCH ×4 (06:31→20:44)
--- NOTE | 2016-11-12 07:54 | HHI.PR ---
Subjective Remarks Patient seen and examined this am. Vitals are stable and she is afebrile. She did not tolerate the gabapentin. Wants feeding tube. Feels like she is not getting enough medication for her nerves, she is tearful. Objective Vital Signs Date Time Temp Pulse Resp B/P Pulse Ox O2 Delivery O2 Flow Rate FiO2 11/12/16 00:04 97.6 65 18 128/73 98 11/11/16 20:00 96.7 72 20 111/70 98 11/11/16 17:00 98.3 70 16 109/69 97 11/11/16 12:00 97.8 65 16 127/69 97 11/11/16 08:00 96.7 75 18 127/90 98 I/O 11/11/16 11/11/16 11/11/16 11/12/16 11/12/16 11/12/16 07:00 15:00 23:00 07:00 15:00 23:00 Intake Total 1186 ml 1243 ml 360 ml 480 ml Output Total 700 ml Balance 1186 ml 543 ml 360 ml 480 ml Intake Oral 360 ml 360 ml 360 ml 480 ml IV Total 826 ml 883 ml Output Urine Total 700 ml # Voids 3 3 2 2 # Bowel Movements 0 0 0 0 Result Diagram: 11/09/16 0556 11/11/16 0423 Imaging Last Impressions Spine CT 11/10/16 0000 Signed Impressions: Service Date/Time: Thursday, November 10, 2016 10:59 - CONCLUSION: Uncomplicated celiac plexus block as above Ankush Cano MD Abdomen/Pelvis CT 11/08/16 0000 Signed Impressions: Service Date/Time: Tuesday, November 08, 2016 09:32 - CONCLUSION: 1. Dilated common bile duct measuring 11 mm in although this could represent reservoir phenomenon status post cholecystectomy correlation with alkaline phosphatase and bilirubin levels is suggested to rule out biliary obstruction. 2. 9 mm spiculated noncalcified nodule within the right lower lobe which is indeterminate. Outpatient CT of the chest would be helpful for further characterization if clinically indicated. 3. Some free fluid within the cul-de-sac. Deondre Gil MD Objective Remarks GENERAL:tearful throughout exam SKIN: Warm and dry. HEAD: Atraumatic. Normocephalic. EYES: Pupils equal and round. No scleral icterus. No injection or drainage. ENT: No nasal bleeding or discharge. Mucous membranes pink and moist. NECK: Trachea midline. No JVD. CARDIOVASCULAR: Regular rate and rhythm. RESPIRATORY: No accessory muscle use. Clear to auscultation. Lateral Breath sounds with end expiratory wheezing. GASTROINTESTINAL: Abdomen soft, tenderness to palpation diffusely. MUSCULOSKELETAL: Extremities without clubbing, cyanosis, or edema. No obvious deformities. NEUROLOGICAL: Awake and alert. No obvious cranial nerve deficits. Motor grossly within normal limits. Normal speech. PSYCHIATRIC: Appropriate mood and affect; insight and judgment normal. A/P Problem List: (1) Median arcuate ligament syndrome ICD Code: I77.4 (2) Intractable epigastric abdominal pain ICD Code: R10.13 (3) Chronic obstructive pulmonary disease ICD Code: J44.9 Assessment and Plan 51 yo female admitted to gen surg with medicine consult for: Abdominal pain/ Dysphagia Recently diagnosed with median arcuate ligament syndrome and is s/p laparoscopic division of median arcuate ligament. CT abdomen showed: Dilated common bile duct measuring 11 mm; 9 mm spiculated noncalcified nodule within the right lower lobe which is indeterminate; Some free fluid within the cul-de- sac. GI has been consulted and the pt is s/p EGD which revealed gastritis. Status post celiac plexus block by interventional radiology. - biopsy from EGD: gastric mucosa without significant histopathologic abnormality - pain control and antiemetics as needed. - followed by GI: trial of reglan, GJ vs PEG - possible feeding tube next week - further management per GI and surgery COPD Has been on hospice twice and removed herself both times. She uses somebody else 's home oxygen. Has a spiculated lung nodule as noted above. - Duonebs and oxygen as needed. - continue home inhaler. - IS. - s/p home walk test, failed, will need home O2 CM to assist - outpt follow up with granite cutter to determine need for CT thorax in regards to spiculated nodule. Hypoglycemia S/t decreased PO intake. - follow glucose regularly. - ADAT. Ensure as tolerable. CVA Chronic. With right arm weakness. - PT eval requested. Anxiety - valium 10 mg q8hrs (home dose) - ativan 0.5 mg hs to help her sleep (home dose) PPx: 30 mg BID per primary Discharge Planning D/C per primary. Maryam Milian MD R3 Nov 12, 2016 07:54
[2016-11-12 08:00] VITALS: BP 104/74; PULSE 71; RESP 17; TEMP 95.7; O2SAT 99
[2016-11-12] MEDS: FLUTICASONE 100 MCG/VILANTEROL 25 MCG INHALER INH SCH (09:00)
[2016-11-12] MEDS: GABAPENTIN 300 MG CAP PO SCH ×3 (09:00→17:09)
[2016-11-12] MEDS: POTASSIUM CHLORIDE 10 MEQ CONTROLLED RELEASE TAB PO SCH ×2 (09:05→20:44)
[2016-11-12] MEDS: PANTOPRAZOLE SODIUM 40 MG VIAL IV PUSH SCH (09:05)
[2016-11-12] MEDS: ENOXAPARIN SODIUM 30 MG/0.3 ML SYRINGE SQ SCH ×2 (09:06→20:44)
--- NOTE | 2016-11-12 11:39 | HHI.PR ---
Subjective Subjective Notes Still quite painful with diet Inquiring about feeding tube Objective Vitals/I&O Vital Signs Date Time Temp Pulse Resp B/P Pulse Ox O2 Delivery O2 Flow Rate FiO2 11/12/16 08:00 95.7 71 17 104/74 99 11/08/16 17:04 2.00 Labs Date/Time Procedure Status Source Growth 11/09/16 09:38 Stool Occult Blood (JERRELL) - Final Complete Stool Stool HEMOCCULT NEGATIVE Lungs: Clear Abdomen: Non-distended A/P Assessment and Plan Assessment and Plan One month postop lap division of median arcuate ligament. s/p celiac block without resolution of the discomfort. EGD showed gastritis. She is anticipating feeding tube placement next week. Throws up when she gets gabapentin; will try short course of reglan. Ender Bahena MD Nov 12, 2016 11:39
[2016-11-12 12:00] VITALS: BP_SYST 122; BP_SYST 165; BP_DIAS 56; BP_DIAS 94; PULSE 63; PULSE 79; RESP 16; RESP 18; TEMP 95.4; TEMP 97.6; O2SAT 96; O2SAT 98
--- NOTE | 2016-11-12 12:03 | HHI.GIFU ---
Subjective Remarks Pt resting in bed. She says she ate a saltine last night. Her nausea is better today but she still has severe epigastric pain and cannot eat. (Rain Sweet) Objective Vitals I&O Vital Signs Date Time Temp Pulse Resp B/P Pulse Ox O2 Delivery O2 Flow Rate FiO2 11/12/16 08:00 95.7 71 17 104/74 99 11/12/16 00:04 97.6 65 18 128/73 98 11/11/16 20:00 96.7 72 20 111/70 98 11/11/16 17:00 98.3 70 16 109/69 97 11/11/16 12:00 97.8 65 16 127/69 97 I/O 11/11/16 11/11/16 11/11/16 11/12/16 11/12/16 11/12/16 06:59 14:59 22:59 06:59 14:59 22:59 Intake Total 1426 ml 1243 ml 360 ml 480 ml Output Total 700 ml Balance 1426 ml 543 ml 360 ml 480 ml Intake Oral 600 ml 360 ml 360 ml 480 ml IV Total 826 ml 883 ml Output Urine Total 700 ml # Voids 5 3 2 2 # Bowel Movements 0 0 0 0 Laboratory Date/Time Procedure Status Source Growth 11/09/16 09:38 Stool Occult Blood (JERRELL) - Final Complete Stool Stool HEMOCCULT NEGATIVE Imaging Last Impressions Spine CT 11/10/16 0000 Signed Impressions: Service Date/Time: Thursday, November 10, 2016 10:59 - CONCLUSION: Uncomplicated celiac plexus block as above Ankush Caon MD Abdomen/Pelvis CT 11/08/16 0000 Signed Impressions: Service Date/Time: Tuesday, November 08, 2016 09:32 - CONCLUSION: 1. Dilated common bile duct measuring 11 mm in although this could represent reservoir phenomenon status post cholecystectomy correlation with alkaline phosphatase and bilirubin levels is suggested to rule out biliary obstruction. 2. 9 mm spiculated noncalcified nodule within the right lower lobe which is indeterminate. Outpatient CT of the chest would be helpful for further characterization if clinically indicated. 3. Some free fluid within the cul-de-sac. Deondre Gil MD Physical Exam HEENT: EOMI; normocephalic; atraumatic; no jaundice. CHEST: wheezes CARDIAC: RRR ABDOMEN: Soft, nondistended, epigastric TTP; no hepatosplenomegaly; bowel sounds faint EXTREMITIES: No clubbing, cyanosis, or edema. SKIN: Normal; no rash; no jaundice. APPOINTMENT SPECIALIST: No focal deficits; alert and oriented times three. (Rain Sweet) Assessment and Plan Plan ASSESSMENT - abdominal pain - epigastric area, s/p celiac plexus block. CT 11-08-16--> 1. Dilated common bile duct measuring 11 mm in although this could represent reservoir phenomenon status post cholecystectomy correlation with alkaline phosphatase and bilirubin levels is suggested to rule out biliary obstruction. 2. 9 mm spiculated noncalcified nodule within the right lower lobe which is indeterminate. Outpatient CT of the chest would be helpful for further characterization if clinically indicated. 3. Some free fluid within the cul-de-sac. s/p EGD, essentially normal, path benign. She says she cannot tolerate gabapentin, it makes her vomit, and lyrica she has taken and it was stopped and she isn't sure why. Palliative care following. - nausea - after eating. onset "few months ago." consider GJ, but pt with allergy to contrast. - dysphagia, bolus sensation - hx GERD, previous dilation 1 year ago. EGD as above - black tarry stool - for 6 months. hemoccult negative. HH WNL currently. PLAN - consider GJ, but pt has contrast allergy - continue reglan - PIPER - monitor HH - further recommendations to follow This pt seen by myself and DR Rigsg and this note is written on his behalf ( Rain Sweet) Physician Comments Patient seen and examined Agree with above Continue with current supportive care Monitor labs Plan for a GJ tube and anti-emetics Not much to add from a GI perspective We will sign off (Julio Riggs MD) Rain Sweet Nov 12, 2016 12:03 Julio Riggs MD Nov 12, 2016 13:13
[2016-11-12] MEDS: DIAZEPAM 10 MG TAB PO SCH ×2 (12:22→20:44)
[2016-11-12 16:00] VITALS: BP 113/72; PULSE 67; RESP 17; TEMP 97; O2SAT 99
[2016-11-12 20:00] VITALS: BP 123/80; PULSE 82; RESP 19; TEMP 97.5; O2SAT 98
[2016-11-12] MEDS: ALPRAZolam 0.5 MG TAB PO PRN ×2 (20:45→21:46)
[2016-11-13] VITALS: BP 124/73; PULSE 66; RESP 18; TEMP 96.6; O2SAT 99
[2016-11-13] MEDS: SUCRALFATE 1 GM/10 ML CUP PO SCH ×4 (06:18→20:00)
[2016-11-13] MEDS: METOCLOPRAMIDE HCL 10 MG/2 ML VIAL IV PUSH SCH ×3 (06:18→22:26)
[2016-11-13] MEDS: DIAZEPAM 10 MG TAB PO SCH ×3 (06:18→20:00)
[2016-11-13] MEDS: HYDROmorphone HCL PF 1 MG/ML VIAL IV PRN ×5 (06:19→23:05)
[2016-11-13 08:00] VITALS: BP 129/84; PULSE 65; RESP 18; TEMP 96.8; O2SAT 92
[2016-11-13] MEDS: POTASSIUM CHLORIDE 10 MEQ CONTROLLED RELEASE TAB PO SCH ×2 (08:11→20:00)
[2016-11-13] MEDS: GABAPENTIN 300 MG CAP PO SCH ×3 (08:12→17:29)
[2016-11-13] MEDS: PANTOPRAZOLE SODIUM 40 MG VIAL IV PUSH SCH (08:12)
[2016-11-13] MEDS: ENOXAPARIN SODIUM 30 MG/0.3 ML SYRINGE SQ SCH ×2 (08:12→20:00)
[2016-11-13] MEDS: DEXT 5%-NACL 0.9% 1000 ML INJ 1,000 ML IV SCH ×2 (08:17→16:52)
[2016-11-13] MEDS: FLUTICASONE 100 MCG/VILANTEROL 25 MCG INHALER INH SCH (08:17)
--- NOTE | 2016-11-13 11:34 | HHI.GIFU ---
Subjective Remarks Reconsulted by GS for PEG tube placement. Pt has long history of chronic abdominal pain, intermittent nausea, inability to tolerate po secondary to pain. She is s/p postop lap division of median arcuate ligament, s/p celiac block without resolution of the discomfort. She reports significant weight loss , unable to quantify the amount. States she cannot eat because of the pain more so than nausea. (Jessica Keyes) Objective Vitals I&O Vital Signs Date Time Temp Pulse Resp B/P Pulse Ox O2 Delivery O2 Flow Rate FiO2 11/13/16 08:00 96.8 65 18 129/84 92 11/13/16 04:44 18 11/13/16 00:00 96.6 66 18 124/73 99 11/12/16 23:54 18 11/12/16 20:00 97.5 82 19 123/80 98 11/12/16 16:00 97.0 67 17 113/72 99 11/12/16 14:19 Nasal Cannula 2.00 11/12/16 12:00 97.6 63 18 165/94 98 11/12/16 12:00 95.4 79 16 122/56 96 I/O 11/12/16 11/12/16 11/12/16 11/13/16 11/13/16 11/13/16 07:00 15:00 23:00 07:00 15:00 23:00 Intake Total 480 ml 2399 ml 360 ml 190 ml 1755 ml Balance 480 ml 2399 ml 360 ml 190 ml 1755 ml Intake Oral 480 ml 360 ml 190 ml IV Total 2399 ml 1755 ml # Voids 2 2 4 # Bowel Movements 0 0 0 Laboratory Date/Time Procedure Status Source Growth 11/09/16 09:38 Stool Occult Blood (JERRELL) - Final Complete Stool Stool HEMOCCULT NEGATIVE Imaging Last Impressions Spine CT 11/10/16 0000 Signed Impressions: Service Date/Time: Thursday, November 10, 2016 10:59 - CONCLUSION: Uncomplicated celiac plexus block as above Ankush aCno MD Abdomen/Pelvis CT 11/08/16 0000 Signed Impressions: Service Date/Time: Tuesday, November 08, 2016 09:32 - CONCLUSION: 1. Dilated common bile duct measuring 11 mm in although this could represent reservoir phenomenon status post cholecystectomy correlation with alkaline phosphatase and bilirubin levels is suggested to rule out biliary obstruction. 2. 9 mm spiculated noncalcified nodule within the right lower lobe which is indeterminate. Outpatient CT of the chest would be helpful for further characterization if clinically indicated. 3. Some free fluid within the cul-de-sac. Deondre Gil MD Physical Exam HEENT: Normocephalic; atraumatic CHEST: Resp even/diminished CARDIAC: RRR ABDOMEN: Soft, nondistended, mild-moderate diffuse tenderness; no hepatosplenomegaly; bowel sounds hypoactive EXTREMITIES: No clubbing, cyanosis, or edema. SKIN: Normal; no rash; no jaundice. MARSHMALLOW MACHINE WORKER: No focal deficits; alert and oriented times three. (Jessica Keyes SHED HAND) Assessment and Plan Plan ASSESSMENT - Abdominal pain, Nausea, Inability to tolerate po. Pt has long history of chronic abdominal pain, intermittent nausea, inability to tolerate po secondary to pain. S/P lap division of median arcuate ligament, s/p celiac block- no improvement. She reports significant weight loss, unable to quantify the amount. States she cannot eat because of the pain more so than nausea. Abdomen/Pelvis CT (11/08/16)----> 1. Dilated common bile duct measuring 11 mm in although this could represent reservoir phenomenon status post cholecystectomy correlation with alkaline phosphatase and bilirubin levels is suggested to rule out biliary obstruction. 2. 9 mm spiculated noncalcified nodule within the right lower lobe which is indeterminate. Outpatient CT of the chest would be helpful for further characterization if clinically indicated. 3. Some free fluid within the cul-de- sac. EGD (11/10/16) 1. The esophagus appeared normal 2. There was erythematous gastritis in the gastric antrum; biopsy was performed 3. Normal duodenal mucosa 4. Retroflexed views revealed no abnormalities. She continues to have ongoing abdominal pain, some nausea, unable to eat secondary to pain. GS requesting PEG tube placement. ? PEG vs. G/J tube. Did have lovenox at 0812 this am. NPO otherwise. Will keep NPO until seen and evaluated by Dr. Braun. - Malnutrition/Wt. Loss. Unable to quantify. PEG vs. G/J tube. - Dysphagia, bolus sensation with hx GERD, previous dilation 1 year ago. EGD as above. - Black tarry stool for 6 months. hemoccult negative. HH WNL currently.EGD as above. PLAN - NPO for now - PEG vs. G/J tube placement - Cont. PPI - Cont. Reglan - Monitor labs - Lighting Director evaluation for TF recommendations - Further recommendations to follow after seen by Dr. Braun (Jessica Keyes) Plan Discussed with patient and pt examined. We will place PEG tube tomorrow. Hold Lovenox tomorrow morning. (Silvestre Braun MD) Jessica Keyes Nov 13, 2016 11:34 Silvestre Braun MD Nov 13, 2016 16:45
[2016-11-13 12:00] VITALS: BP 119/83; PULSE 72; RESP 18; TEMP 97; O2SAT 99
--- NOTE | 2016-11-13 14:58 | HHI.PR ---
Subjective Subjective Notes Resting in bed Has decided to get a feeding tube placed Objective Vitals/I&O Vital Signs Date Time Temp Pulse Resp B/P Pulse Ox O2 Delivery O2 Flow Rate FiO2 11/13/16 12:00 97.0 72 18 119/83 99 11/12/16 14:19 Nasal Cannula 2.00 Labs Date/Time Procedure Status Source Growth 11/09/16 09:38 Stool Occult Blood (JERRELL) - Final Complete Stool Stool HEMOCCULT NEGATIVE Cardiovascular: Regular Lungs: Clear Abdomen: Other (abdomen flat; tender to palpation ) Extremities: No edema A/P Assessment and Plan 51 year old female s/p Laparoscopic division of median arcuate ligament in September 2016; now back with abdominal pain and weight loss -NPO for possible procedure today -Notified GI of need for feeding tube s/p celiac plexus block -s/p EGD -OOB and mobilize -Pain control -IVF -SCDs ordered -Okay to shower -Palliative Care following Anna Botello Nov 13, 2016 14:58
[2016-11-13 16:00] VITALS: BP 129/85; PULSE 70; RESP 17; TEMP 96.8; O2SAT 99
--- NOTE | 2016-11-13 17:20 | HHI.PR ---
Subjective Remarks c/o abdominal pain 01/04 no fevers Denies nausea or vomiting. Objective Vitals Vital Signs Date Time Temp Pulse Resp B/P Pulse Ox O2 Delivery O2 Flow Rate FiO2 11/13/16 16:00 96.8 70 17 129/85 99 11/13/16 12:00 97.0 72 18 119/83 99 11/13/16 08:00 96.8 65 18 129/84 92 11/13/16 04:44 18 11/13/16 00:00 96.6 66 18 124/73 99 11/12/16 23:54 18 11/12/16 20:00 97.5 82 19 123/80 98 I/O 11/12/16 11/12/16 11/12/16 11/13/16 11/13/16 11/13/16 07:00 15:00 23:00 07:00 15:00 23:00 Intake Total 480 ml 2399 ml 360 ml 190 ml 2200 ml Balance 480 ml 2399 ml 360 ml 190 ml 2200 ml Intake Oral 480 ml 360 ml 190 ml 0 ml IV Total 2399 ml 2200 ml # Voids 2 2 4 3 # Bowel Movements 0 0 0 0 Result Diagram: 11/09/16 0556 11/11/16 0423 Imaging Last Impressions Spine CT 11/10/16 0000 Signed Impressions: Service Date/Time: Thursday, November 10, 2016 10:59 - CONCLUSION: Uncomplicated celiac plexus block as above Ankush Cano MD Abdomen/Pelvis CT 11/08/16 0000 Signed Impressions: Service Date/Time: Tuesday, November 08, 2016 09:32 - CONCLUSION: 1. Dilated common bile duct measuring 11 mm in although this could represent reservoir phenomenon status post cholecystectomy correlation with alkaline phosphatase and bilirubin levels is suggested to rule out biliary obstruction. 2. 9 mm spiculated noncalcified nodule within the right lower lobe which is indeterminate. Outpatient CT of the chest would be helpful for further characterization if clinically indicated. 3. Some free fluid within the cul-de-sac. Deondre Gil MD Objective Remarks GENERAL: Very thin, fragile. No distress. SKIN: Warm and dry. HEAD: Normocephalic. EYES: No scleral icterus. No injection or drainage. NECK: Supple, trachea midline. No JVD or lymphadenopathy. CARDIOVASCULAR: Regular rate and rhythm without murmurs, gallops, or rubs. RESPIRATORY: Decreased breath sounds bilaterally. There is mild diffuse bilateral expiratory wheezing. GASTROINTESTINAL: Abdomen soft, tender to palpation mostly of epigastrium, right upper quadrant and left upper quadrant. MUSCULOSKELETAL: No cyanosis, or edema. BACK: Nontender without obvious deformity. No CVA tenderness. Procedures Celiac plexus block 11/10/16 Medications and IVs Current Medications Medications (Trade) Dose Ordered Sig/Александр Route Start Time Stop Time Status Last Admin (Protonix Inj) 40 mg DAILY IV PUSH 11/08/16 09:00 11/13/16 08:12 (Dilaudid Pf Inj) 1 mg Q3H PRN IV 11/07/16 15:00 11/13/16 20:01 Enoxaparin Sodium 30 mg 30 mg BID SQ 11/07/16 21:00 11/13/16 20:00 (D5W-NS 1000 ml Inj) 1,000 ml @ 100 mls/hr Q10H IV 11/08/16 03:15 11/13/16 16:52 (Reglan Inj) 10 mg Q8HR IV PUSH 11/08/16 14:00 11/13/16 13:44 (Carafate Liq) 1 gm ACHS PO 11/08/16 16:00 11/13/16 20:00 (Breo Ellipta 100-25 Inh) 1 puff DAILY INH 11/09/16 09:00 11/13/16 08:17 (Roxicodone) 10 mg Q4H PRN PO 11/08/16 17:45 11/13/16 18:06 (Roxicodone) 5 mg Q4H PRN PO 11/08/16 17:45 (KCl) 30 meq Q12HR PO 11/11/16 09:00 11/13/16 20:00 (Neurontin) 300 mg TID PO 11/11/16 13:00 (Xanax) 0.5 mg HS PRN PO 11/12/16 21:00 11/12/16 21:46 (Valium) 10 mg Q8HR PO 11/12/16 14:00 11/13/16 20:00 A/P Problem List: (1) Intractable epigastric abdominal pain ICD Code: R10.13 Status: Acute Plan: Recently diagnosed with median arcuate ligament syndrome and is s/p laparoscopic division of median arcuate ligament. CT abdomen showed: Dilated common bile duct measuring 11 mm; 9 mm spiculated noncalcified nodule within the right lower lobe which is indeterminate; Some free fluid within the cul-de- sac. GI has been consulted and the pt is s/p EGD which revealed gastritis. Status post celiac plexus block by interventional radiology. - biopsy from EGD: gastric mucosa without significant histopathologic abnormality - pain control and antiemetics as needed. - followed by GI: trial of reglan, GJ vs PEG 11/13 For Peg tube feeding placement in am. Continue pain control with oxycodone. (2) Median arcuate ligament syndrome ICD Code: I77.4 Status: Acute Plan: As above. sp laparoscopic division of median arcuate ligament. (3) Gastritis ICD Code: K29.70 Status: Acute Plan: Stable. Continue PPI - On Carafate and Protonix. (4) Chronic obstructive pulmonary disease ICD Code: J44.9 Status: Acute Plan: Has been on hospice twice and removed herself both times. She uses somebody else's home oxygen. Has a spiculated lung nodule as noted above. - Duonebs and oxygen as needed. - continue home inhaler. - IS. - s/p home walk test, failed, will need home O2 CM to assist - oupt follow up with pulmonology for further eval with CT Scan. 11/13 place patient on DuoNeb's every 6 hours while the patient is awake. (5) Lung nodule ICD Code: R91.1 Status: Acute Plan: As seen on CT abdomen and pelvis. Will consider outpatient follow up vs CT scan while hospitalized after patient gets PEG tube in am. (6) Hypoglycemia ICD Code: E16.2 Status: Resolved Plan: Due to low oral intake. Now resolved. Continue to monitor accuchecks. (7) H/O: CVA (cerebrovascular accident) ICD Code: Z86.73 Status: Chronic Plan: Chronic. With right arm weakness. - PT eval ordered - patient may go home without PT. (8) Anxiety ICD Code: F41.9 Status: Acute Plan: Seems stable. Continue Valium and Xanax as needed for sleep. Assessment and Plan GI prophylaxis: On PPI. DVT prophylaxis: SCDs, hold subcutaneous Lovenox prior to surgery. Discharge Planning Continue to monitor in the medical floor. For PEG tube placement tomorrow. Problem Qualifiers (1) Gastritis: Qualified Code: K29.00 - Acute gastritis without hemorrhage, unspecified gastritis type (2) Chronic obstructive pulmonary disease: Qualified Code: J42 - Chronic bronchitis, unspecified chronic bronchitis type Shawn Cardona MD Nov 13, 2016 17:20
--- NOTE | 2016-11-13 17:21 | HHI.HCPN ---
Reason for visit a. To assist with evaluation and management of symptoms including: pain, nausea b. To assist medical decision maker(s) with: better understanding of current medical conditions; weighing benefits/burdens of medical treatment options; making medical treatment decisions. . Subjective/Interval History Patient is a 51-year-old with a past medical history of COPD, emphysema, osteoporosis, GERD, depression, sarcoidosis. The patient had median arcuate ligament syndrome, and underwent surgery on 10/11/2016 laparoscopically. Patient presented to [facility] with severe abdominal pain and nausea when eating on . HR 72, respirations 18, BP 119/83, oxygen saturation 99% on room air, oral temperature 97.0 No new lab work available. CT abdomen/pelvis revealed a dilated common bile duct measuring 11 mm; 9 mm spiculated noncalcified nodule within the right lower lobe which is indeterminate; some free fluid within the cul-de-sac. Recommendations to f/u with pulmonology outpatient to determine need for CT thorax related to spiculated nodule. Patient has a long history of chronic abdominal pain with intermittent nausea, inability to tolerate PO nutrition secondary to pain and associated weight loss. Patient having ongoing GI is following s/p EGD which revealed gastritis; cytology was normal. Patient has decided to proceed with feeding tube placement , likely today or tomorrow. On Reglan 10mg IV q8 hours, Protonix 40mg IV daily, Carafate 1G by mouth before meals and at bedtime. Patient reports ongoing pain rated 8 out of 10 status post celiac plexus block without symptom relief. She states pain is located in bilateral lower extremities and characterizes pain as "pins and needles". Gabapentin is ordered 300 mg PO 3 times daily, the patient does not want to take because she says it makes her feel fell. She states she has been on Lyrica previously, and it did not relieve her pain. She also reports diffuse abdominal pain, also rated 8 out of 10. Current orders for oxycodone 510 milligrams PO q4 hours PRN and Dilaudid 1 mg IV q3 hours PRN. 24 hour dosing requirement: Oxycodone 10mg x 5 doses and Dilaudid 3 mg IV x 5 doses. Plan to re-evaluate s/p GI procedure. . Advance Directives Living Will: Never completed Health Care Surrogate: Never completed Durable Power of Dining Room Cashier: Never completed (she had recinded her DNR while she was in hospice) Advance Directive Specifics Significant change in goals: Patient has decided to proceed with PEG tube placement. . Objective Vital Signs Date Time Temp Pulse Resp B/P Pulse Ox O2 Delivery O2 Flow Rate FiO2 11/13/16 16:00 96.8 70 17 129/85 99 11/13/16 12:00 97.0 72 18 119/83 99 11/13/16 08:00 96.8 65 18 129/84 92 11/13/16 04:44 18 11/13/16 00:00 96.6 66 18 124/73 99 11/12/16 23:54 18 11/12/16 20:00 97.5 82 19 123/80 98 Intake & Output 11/13/16 11/13/16 07:00 19:00 Intake Total 550 ml 2200 ml Balance 550 ml 2200 ml Intake Oral 550 ml 0 ml IV Total 2200 ml # Voids 6 3 # Bowel Movements 0 0 . Physical Exam CONSTITUTIONAL/GENERAL: This is thin frail middle age female in no acute distress SKIN: No jaundice, rashes, or lesions. Scar on abdomen s/p laparoscopy procedure HEAD: Atraumatic. Normocephalic. EYES: Pupils equal and round and reactive. Extraocular motions intact. No scleral icterus. Fundi not examined. ENT: Hearing grossly normal. Nose without bleeding or purulent drainage NECK: Trachea midline. CARDIOVASCULAR: Regular rate and rhythm without murmurs, gallops, or rubs. No JVD. Peripheral pulses symmetric. RESPIRATORY/CHEST: Symmetric, unlabored respirations. Clear to auscultation. Breath sounds equal bilaterally. No wheezes, rales, or rhonchi. GASTROINTESTINAL: Abdomen soft, nondistended. Diffuse tenderness rated 8 out of 10, tender to palpation. Hypoactive bowel sounds. GENITOURINARY: Without palpable bladder distension. MUSCULOSKELETAL: Extremities without clubbing, cyanosis, or edema. LYMPHATICS: No palpable cervical or supraclavicular adenopathy. NEUROLOGICAL: Awake and alert. Follows commands. Cognitively sharp. Moves all extremities. PSYCHIATRIC: No obvious anxiety/depression. no apparent hallucinations or other psychotic thought process. . Diagnostic Tests Laboratory Laboratory Tests Test 11/11/16 04:23 Sodium Level 140 MEQ/L (136-145) Potassium Level 3.2 MEQ/L (3.5-5.1) Chloride Level 103 MEQ/L (98-107) Carbon Dioxide Level 29.4 MEQ/L (21.0-32.0) Anion Gap 8 MEQ/L (5-15) Blood Urea Nitrogen 1 MG/DL (7-18) Creatinine 0.45 MG/DL (0.50-1.00) Estimat Glomerular Filtration 147 ML/MIN Rate (>89) Random Glucose 79 MG/DL (74-106) Calcium Level 8.5 MG/DL (8.5-10.1) Phosphorus Level 3.9 MG/DL (2.5-4.9) Magnesium Level 1.6 MG/DL (1.5-2.5) . Result Diagram: 11/09/16 0556 11/11/16 0423 Procedures Plexus block 11/10/2016 by specials . Assessment and Plan Disease Oriented Problem List: (1) Chronic obstructive pulmonary disease (2) Intractable epigastric abdominal pain (3) Sarcoidosis Symptom Scale: (1) Nausea 0-10 Scale: Unable to quantify (2) Pain 0-10 Scale: 8 Pertinent Non-Medical Issues Psychosocial: Spiritual: Legal: Ethical issues impacting care: Important Contacts Jerome Raymond Prognosis 51 year old with copd, sarcoidosis, lung mass, and now abdominal pain and intractable nausea and vomiting. Prognosis is guarded. Code Status: Full Code Plan ==Capacity- has capacity to make medical decision. == Health Care Proxy is Spouse. == Code Status: Full code. Not sure about peg and trach. She had been intubated in the past. Pt undecided about trach or peg. I encourage open discussion with her family. ==Hospice likely will need to look back at previous hospice records with [facility] and [facility]. Her COPD does not appear to be end stage, not O2 dependent per pt. Her lung nodules are being monitored. Her hospice diagnosis on [facility] are for COPD, and Lung Cancer. She previously have been on [facility] from (12/08/14 to 02/18/2015) for ES COPD. She then was in [facility] (05/13/2015), for neoplasm of the lung but revoked. It appears that she has survive longer than the 6 months while being in hospice, and a prognosis of < 6 months is critical to meet hospice criteria. == [facility] has declined her in the past. However, currently her issue is her pain and nutritional status, which may put her at a different clinical level than before. == Goals of care: Further more, currently her goals are aggressive. She had been in hospice in the past and have felt hospice overmedicated her. She remains a full code. Dr. Manjarrez spoke with the patient and her at bedside and indicated it may be difficult to find a happy medium where pain is well controlled with out her being sedated. Her goals are not hospice oriented or appropriate, should she decline, like she has in the past she would want to go back to the hospital. == Pain/nausea- I am unsure of etiology likely multifactorial. She does appear to have a high opioid tolerance. Patient reports ongoing pain rated 8 out of 10 status post celiac plexus block without symptom relief. She states pain is located in bilateral lower extremities and characterizes pain as "pins and needles". Gabapentin is ordered 300 mg PO 3 times daily, the patient does not want to take because she says it makes her feel fell. She states she has been on Lyrica previously, and it did not relieve her pain. She also reports diffuse abdominal pain, also rated 8 out of 10. Current orders for oxycodone 5 10 milligrams PO q4 hours PRN and Dilaudid 1 mg IV q3 hours PRN. 24 hour dosing requirement: Oxycodone 10mg x 5 doses and Dilaudid 3 mg IV x 5 doses. Plan to re-evaluate s/p GI procedure. == Palliative care will continue to follow patient throughout her hospitalization to establish trust, assist with symptom management and clarification of medical treatment goals. == Discussed case with Dr. Barrett and patient's nurse. Attestation To help prompt me to consider important information that might be impacting today's encounter and assessment, information from prior notes written by myself or my colleagues may have been "brought forward" into today's note. My signature on this note, however, is an attestation that I personally performed the exam, history, and/or decision-making noted today, and, unless otherwise indicated, the interactions with patient, family, and staff as well as the review of records all occurred today. I also attest that the listed assessment and stated plan reflect my best clinical judgment today based on the combination of historical information, prior notes, and today's exam/ interactions. When time spent is documented, it refers only to time spent today by the signer, or if indicated, combined time spent today by collaborating physician/nurse practitioner. . Alma Lofton Nov 13, 2016 17:20
[2016-11-13] MEDS: RESP: ALBUTEROL 2.5 MG/IPRATROPIUM 0.5 MG NEB (SCH) NEB (19:51)
[2016-11-13 20:00] VITALS: BP 131/85; PULSE 68; RESP 18; TEMP 96.7; O2SAT 98
[2016-11-13] MEDS: ALPRAZolam 0.5 MG TAB PO PRN (22:26)
[2016-11-14] VITALS (10 sets, daily range): BP systolic 93–148; BP diastolic 56–82; PULSE 61–72; RESP 17–22; TEMP 95.9–97.6; O2SAT 96–100
[2016-11-14] MEDS ORDERED: CHLORHEXIDINE GLUCONATE 2 % 1 PACK (2 CLOTHS) TOPICAL PRN (01:45)
[2016-11-14] MEDS ORDERED: LACTATED RINGER'S 1000 ML IV PRN (01:45)
[2016-11-14] MEDS: HYDROmorphone HCL PF 1 MG/ML VIAL IV PRN ×6 (02:59→21:42)
[2016-11-14 05:37] LABS: AUTOMATED NEUTROPHIL # 2.4 TH/MM3 (1.8-7.7); BASOPHIL # 0.1 TH/MM3 (0-0.2); BASOPHIL % 0.9 % (0.0-2.0); EOSINOPHIL # 0.8 TH/MM3 (0-0.4); EOSINOPHIL % 14.3 % (0.0-4.0); HEMATOCRIT 36.5 % (35.0-46.0); HEMO FLAGS DIFF FINAL; LYMPH % 34.3 % (9.0-44.0); MEAN CELL VOLUME 81.7 FL (80.0-100.0); MEAN CORPUSCULAR HEMOGLOBIN 25.7 PG (27.0-34.0); MEAN CORPUSCULAR HGB CONC 31.5 % (32.0-36.0); MONO % 10.2 % (0.0-8.0); NEUT % 40.3 % (16.0-70.0); PLATELET COUNT 148 TH/MM3 (150-450); RED BLOOD COUNT 4.46 MIL/MM3 (4.00-5.30); RED CELL DISTRIBUTION WIDTH 14.7 % (11.6-17.2); WHITE BLOOD COUNT 5.9 TH/MM3 (4.0-11.0)
[2016-11-14 05:57] LABS: ANION GAP 8 MEQ/L (5-15); AST (GOT) 11 U/L (15-37); BICARBONATE 25.7 MEQ/L (21.0-32.0); BLOOD UREA NITROGEN 2 MG/DL (7-18); CHLORIDE 108 MEQ/L (98-107); GLOMERULAR FILTRATION RATE 147 ML/MIN (>89); MAGNESIUM 1.6 MG/DL (1.5-2.5); POTASSIUM 3.7 MEQ/L (3.5-5.1); SODIUM (NA) 142 MEQ/L (136-145)
[2016-11-14 06:00] LABS: ALKALINE PHOSPHATASE 40 U/L (45-117); ALT (GPT) 13 U/L (10-53); TOTAL BILIRUBIN ADULT 0.3 MG/DL (0.2-1.0)
[2016-11-14] MEDS: DIAZEPAM 10 MG TAB PO SCH ×3 (06:00→21:40)
[2016-11-14] MEDS: METOCLOPRAMIDE HCL 10 MG/2 ML VIAL IV PUSH SCH ×3 (06:01→21:41)
[2016-11-14] MEDS: SUCRALFATE 1 GM/10 ML CUP PO SCH ×4 (06:02→21:41)
[2016-11-14] MEDS: RESP: ALBUTEROL 2.5 MG/IPRATROPIUM 0.5 MG NEB (SCH) NEB ×3 (07:46→19:47)
[2016-11-14] MEDS: POTASSIUM CHLORIDE 10 MEQ CONTROLLED RELEASE TAB PO SCH ×2 (08:27→21:40)
[2016-11-14] MEDS: GABAPENTIN 300 MG CAP PO SCH ×3 (08:27→12:05)
[2016-11-14] MEDS: PANTOPRAZOLE SODIUM 40 MG VIAL IV PUSH SCH (08:31)
[2016-11-14] MEDS: FLUTICASONE 100 MCG/VILANTEROL 25 MCG INHALER INH SCH (08:34)
[2016-11-14] MEDS: DEXT 5%-NACL 0.9% 1000 ML INJ 1,000 ML IV SCH (08:35)
[2016-11-14] MEDS ORDERED: ceFAZolin 1 GM ADDVANTAGE VIAL IV ONE (09:02)
[2016-11-14] MEDS ORDERED: PROPOFOL 200 MG/20 ML AMP IV ONE (09:18)
--- NOTE | 2016-11-14 09:26 | HHI.GIFU ---
Subjective Remarks Immediate postop note: PEG tube placement. Indication: wt loss, Findings: Esophagus normal, Stomach: normal, Duodenum: normal. PEG tube placed easily in left upper quadrant, with excellent transillumination and indentation. Objective Vitals I&O Vital Signs Date Time Temp Pulse Resp B/P Pulse Ox O2 Delivery O2 Flow Rate FiO2 11/14/16 08:42 100 Room Air 11/14/16 08:40 96.5 64 18 140/77 100 11/14/16 08:00 96.5 64 18 115/63 100 11/14/16 07:47 98 21 11/14/16 04:00 Room Air 11/14/16 04:00 96.7 64 18 101/65 98 11/14/16 00:00 97.3 61 18 93/56 96 11/14/16 00:00 Room Air 11/13/16 20:00 96.7 68 18 131/85 98 11/13/16 20:00 Room Air 11/13/16 16:00 96.8 70 17 129/85 99 11/13/16 12:00 97.0 72 18 119/83 99 I/O 11/13/16 11/13/16 11/13/16 11/14/16 11/14/16 11/14/16 07:00 15:00 23:00 07:00 15:00 23:00 Intake Total 190 ml 2200 ml 1176 ml 745 ml Balance 190 ml 2200 ml 1176 ml 745 ml Intake Oral 190 ml 0 ml 320 ml 0 ml IV Total 2200 ml 856 ml 745 ml # Voids 4 3 2 3 # Bowel Movements 0 0 0 0 Laboratory Laboratory Tests Test 11/14/16 04:42 White Blood Count 5.9 Red Blood Count 4.46 Hemoglobin 11.5 Hematocrit 36.5 Mean Corpuscular Volume 81.7 Mean Corpuscular Hemoglobin 25.7 Mean Corpuscular Hemoglobin 31.5 Concent Red Cell Distribution Width 14.7 Platelet Count 148 Mean Platelet Volume 8.3 Neutrophils (%) (Auto) 40.3 Lymphocytes (%) (Auto) 34.3 Monocytes (%) (Auto) 10.2 Eosinophils (%) (Auto) 14.3 Basophils (%) (Auto) 0.9 Neutrophils # (Auto) 2.4 Lymphocytes # (Auto) 2.0 Monocytes # (Auto) 0.6 Eosinophils # (Auto) 0.8 Basophils # (Auto) 0.1 CBC Comment DIFF FINAL Differential Comment Sodium Level 142 Potassium Level 3.7 Chloride Level 108 Carbon Dioxide Level 25.7 Anion Gap 8 Blood Urea Nitrogen 2 Creatinine 0.45 Estimat Glomerular Filtration 147 Rate Random Glucose 75 Calcium Level 8.6 Phosphorus Level 4.3 Magnesium Level 1.6 Total Bilirubin 0.3 Aspartate Amino Transf 11 (AST/SGOT) Alanine Aminotransferase 13 (ALT/SGPT) Alkaline Phosphatase 40 Total Protein 6.1 Albumin 3.0 Date/Time Procedure Status Source Growth 11/09/16 09:38 Stool Occult Blood (JERRELL) - Final Complete Stool Stool HEMOCCULT NEGATIVE Physical Exam HEENT: Normocephalic; atraumatic CHEST: Resp even/diminished CARDIAC: RRR ABDOMEN: Soft, nondistended, mild-moderate diffuse tenderness; no hepatosplenomegaly; bowel sounds hypoactive EXTREMITIES: No clubbing, cyanosis, or edema. SKIN: Normal; no rash; no jaundice. TAR ROOFER: No focal deficits; alert and oriented times three. Assessment and Plan Plan Imp: Successful placement of PEG tube. Plan: - Sips of clear liquids today. OK to use PEG tube for meds and flush with water. - OK to use PEG tube for feeding tomorrow morning. - Use continuous feeding method with residual checks. Silvestre Braun MD Nov 14, 2016 09:26
[2016-11-14] MEDS ORDERED: DO NOT ADM ANY ANTICOAGULANT DRUGS PRN (10:15)
--- NOTE | 2016-11-14 13:24 | HHI.PR ---
Subjective Subjective Notes Just back from PEG placement Thirsty at bedside Objective Vitals/I&O Vital Signs Date Time Temp Pulse Resp B/P Pulse Ox O2 Delivery O2 Flow Rate FiO2 11/14/16 12:00 96.6 67 18 131/82 98 11/14/16 08:42 Room Air 11/14/16 07:47 21 11/12/16 14:19 2.00 Labs Laboratory Tests Test 11/14/16 04:42 White Blood Count 5.9 Red Blood Count 4.46 Hemoglobin 11.5 Hematocrit 36.5 Mean Corpuscular Volume 81.7 Mean Corpuscular Hemoglobin 25.7 Mean Corpuscular Hemoglobin 31.5 Concent Red Cell Distribution Width 14.7 Platelet Count 148 Mean Platelet Volume 8.3 Neutrophils (%) (Auto) 40.3 Lymphocytes (%) (Auto) 34.3 Monocytes (%) (Auto) 10.2 Eosinophils (%) (Auto) 14.3 Basophils (%) (Auto) 0.9 Neutrophils # (Auto) 2.4 Lymphocytes # (Auto) 2.0 Monocytes # (Auto) 0.6 Eosinophils # (Auto) 0.8 Basophils # (Auto) 0.1 CBC Comment DIFF FINAL Differential Comment Sodium Level 142 Potassium Level 3.7 Chloride Level 108 Carbon Dioxide Level 25.7 Anion Gap 8 Blood Urea Nitrogen 2 Creatinine 0.45 Estimat Glomerular Filtration 147 Rate Random Glucose 75 Calcium Level 8.6 Phosphorus Level 4.3 Magnesium Level 1.6 Total Bilirubin 0.3 Aspartate Amino Transf 11 (AST/SGOT) Alanine Aminotransferase 13 (ALT/SGPT) Alkaline Phosphatase 40 Total Protein 6.1 Albumin 3.0 Cardiovascular: Regular Lungs: Clear Abdomen: Non-distended, Other (PEG in place; dressing intact; lap sites healed ; painful with palpation ) Extremities: No edema A/P Assessment and Plan 51 year old female s/p Laparoscopic division of median arcuate ligament in September 2016; now back with abdominal pain and weight loss -PEG placed today -Clear liquids -Plan to start TF tomorrow s/p celiac plexus block -OOB and mobilize -Pain control -IVF -SCDs -Palliative Care following Anna Botello Nov 14, 2016 13:24
--- NOTE | 2016-11-14 14:30 | HHI.PR ---
Subjective Remarks Deferred entry, patient seen earlier at 10:30 AM Status post PEG tube placement Complains of abdominal pain Denies nausea vomiting Afebrile Stable vital signs Objective Vitals Vital Signs Date Time Temp Pulse Resp B/P Pulse Ox O2 Delivery O2 Flow Rate FiO2 11/14/16 12:00 96.6 67 18 131/82 98 11/14/16 10:13 95.9 69 17 143/67 98 11/14/16 09:47 75 18 105/73 100 11/14/16 09:37 67 18 121/75 100 11/14/16 09:27 97.8 87 18 121/75 100 11/14/16 08:42 100 Room Air 11/14/16 08:40 96.5 64 18 140/77 100 11/14/16 08:00 96.5 64 18 115/63 100 11/14/16 07:47 98 21 11/14/16 04:00 Room Air 11/14/16 04:00 96.7 64 18 101/65 98 11/14/16 00:00 97.3 61 18 93/56 96 11/14/16 00:00 Room Air 11/13/16 20:00 96.7 68 18 131/85 98 11/13/16 20:00 Room Air 11/13/16 16:00 96.8 70 17 129/85 99 I/O 11/13/16 11/13/16 11/13/16 11/14/16 11/14/16 11/14/16 07:00 15:00 23:00 07:00 15:00 23:00 Intake Total 190 ml 2200 ml 1176 ml 745 ml 150 ml Balance 190 ml 2200 ml 1176 ml 745 ml 150 ml Intake Oral 190 ml 0 ml 320 ml 0 ml IV Total 2200 ml 856 ml 745 ml Other 150 ml # Voids 4 3 2 3 # Bowel Movements 0 0 0 0 Result Diagram: 11/14/162 11/14/16 0442 Imaging Last Impressions Spine CT 11/10/16 0000 Signed Impressions: Service Date/Time: Thursday, November 10, 2016 10:59 - CONCLUSION: Uncomplicated celiac plexus block as above Ankush Cano MD Abdomen/Pelvis CT 11/08/16 0000 Signed Impressions: Service Date/Time: Tuesday, November 08, 2016 09:32 - CONCLUSION: 1. Dilated common bile duct measuring 11 mm in although this could represent reservoir phenomenon status post cholecystectomy correlation with alkaline phosphatase and bilirubin levels is suggested to rule out biliary obstruction. 2. 9 mm spiculated noncalcified nodule within the right lower lobe which is indeterminate. Outpatient CT of the chest would be helpful for further characterization if clinically indicated. 3. Some free fluid within the cul-de-sac. Deondre Gil MD Objective Remarks GENERAL: Very thin, fragile. No distress. SKIN: Warm and dry. HEAD: Normocephalic. EYES: No scleral icterus. No injection or drainage. NECK: Supple, trachea midline. No JVD or lymphadenopathy. CARDIOVASCULAR: Regular rate and rhythm without murmurs, gallops, or rubs. RESPIRATORY: Decreased breath sounds bilaterally. There is mild diffuse bilateral expiratory wheezing. GASTROINTESTINAL: Abdomen soft, tender to palpation diffusely. PEG tube in place covered by dressing which is C/D/I. MUSCULOSKELETAL: No cyanosis, or edema. BACK: Nontender without obvious deformity. No CVA tenderness. Procedures Celiac plexus block 11/10/16 Medications and IVs Current Medications Medications (Trade) Dose Ordered Sig/Александр Route Start Time Stop Time Status Last Admin (Protonix Inj) 40 mg DAILY IV PUSH 11/08/16 09:00 11/14/16 08:31 (Dilaudid Pf Inj) 1 mg Q3H PRN IV 11/07/16 15:00 11/14/16 13:59 Enoxaparin Sodium 30 mg 30 mg BID SQ 11/07/16 21:00 11/13/16 20:00 (D5W-NS 1000 ml Inj) 1,000 ml @ 100 mls/hr Q10H IV 11/08/16 03:15 11/14/16 08:35 (Reglan Inj) 10 mg Q8HR IV PUSH 11/08/16 14:00 11/14/16 13:59 (Carafate Liq) 1 gm ACHS PO 11/08/16 16:00 11/14/16 11:04 (Breo Ellipta 100-25 Inh) 1 puff DAILY INH 11/09/16 09:00 11/14/16 08:34 (Roxicodone) 10 mg Q4H PRN PO 11/08/16 17:45 11/14/16 12:04 (Roxicodone) 5 mg Q4H PRN PO 11/08/16 17:45 (KCl) 30 meq Q12HR PO 11/11/16 09:00 11/13/16 20:00 (Neurontin) 300 mg TID PO 11/11/16 13:00 (Xanax) 0.5 mg HS PRN PO 11/12/16 21:00 11/13/16 22:26 Diazepam 10 mg 10 mg Q8HR PO 11/12/16 14:00 11/14/16 13:59 (Lr 1000 ml Inj) 1,000 ml @ 30 mls/hr Q24H PRN IV 11/14/16 01:45 11/17/16 01:44 Miscellaneous Information ALL NURSING DEPARTME... UNSCH PRN .XX 11/14/16 10:15 11/15/16 10:14 Urinary Catheter: No Vascular Central Line Catheter: No A/P Problem List: (1) Intractable epigastric abdominal pain ICD Code: R10.13 Status: Acute Plan: Recently diagnosed with median arcuate ligament syndrome and is s/p laparoscopic division of median arcuate ligament. CT abdomen showed: Dilated common bile duct measuring 11 mm; 9 mm spiculated noncalcified nodule within the right lower lobe which is indeterminate; Some free fluid within the cul-de- sac. GI has been consulted and the pt is s/p EGD which revealed gastritis. Status post celiac plexus block by interventional radiology. - biopsy from EGD: gastric mucosa without significant histopathologic abnormality - pain control and antiemetics as needed. - followed by GI: trial of regajay, GJ vs PEG 11/13 For Peg tube feeding placement in am. Continue pain control with oxycodone. 11/14 sp PEG tube placement today. Follow-up GI and general surgery recommendations. Plan is to start feedings tomorrow. I will start the patient on long-acting morphine for better pain control. Continue Roxicodone for short-acting pain control. (2) Median arcuate ligament syndrome ICD Code: I77.4 Status: Acute Plan: As above. sp laparoscopic division of median arcuate ligament. (3) Gastritis ICD Code: K29.70 Status: Acute Plan: Stable. Continue PPI - On Carafate and Protonix. (4) Chronic obstructive pulmonary disease ICD Code: J44.9 Status: Acute Plan: Has been on hospice twice and removed herself both times. She uses somebody else's home oxygen. Has a spiculated lung nodule as noted above. - Duonebs and oxygen as needed. - continue home inhaler. - IS. - s/p home walk test, failed, will need home O2 CM to assist - oupt follow up with pulmonology for further eval with CT Scan. 11/13 place patient on DuoNeb's every 6 hours while the patient is awake. 11/14 Much improved today. Continue supplemental oxygen to keep oxygen saturation 100%, continue DuoNeb's. (5) Lung nodule ICD Code: R91.1 Status: Acute Plan: As seen on CT abdomen and pelvis. Will obtain a chest CT and depending on findings will obtain a pulmonary consult vs outpatient referral to pulmonology. (6) Hypoglycemia ICD Code: E16.2 Status: Resolved Plan: Due to low oral intake. Now resolved. Continue to monitor accuchecks. (7) H/O: CVA (cerebrovascular accident) ICD Code: Z86.73 Status: Chronic Plan: Chronic. With right arm weakness. - PT eval ordered - patient may go home without PT. (8) Anxiety ICD Code: F41.9 Status: Acute Plan: Seems stable. Continue Valium and Xanax as needed for sleep. Assessment and Plan GI prophylaxis: On PPI. DVT prophylaxis: SCDs, hold subcutaneous Lovenox prior to surgery. Discharge Planning Continue to monitor in the medical floor. sp PEG placement. Problem Qualifiers (1) Gastritis: Qualified Code: K29.00 - Acute gastritis without hemorrhage, unspecified gastritis type (2) Chronic obstructive pulmonary disease: Qualified Code: J42 - Chronic bronchitis, unspecified chronic bronchitis type Shawn Cardona MD Nov 14, 2016 14:30
[2016-11-14] MEDS: ENOXAPARIN SODIUM 30 MG/0.3 ML SYRINGE SQ SCH (21:41)
[2016-11-14] MEDS: ALPRAZolam 0.5 MG TAB PO PRN (22:01)
[2016-11-15] VITALS (9 sets, daily range): BP systolic 109–138; BP diastolic 64–86; PULSE 66–80; RESP 17–22; TEMP 96.5–98.7; O2SAT 96–100
[2016-11-15] MEDS: DEXT 5%-NACL 0.9% 1000 ML INJ 1,000 ML IV SCH ×3 (00:55→09:55)
[2016-11-15] MEDS: HYDROmorphone HCL PF 1 MG/ML VIAL IV PRN ×3 (00:56→10:54)
[2016-11-15] MEDS: METOCLOPRAMIDE HCL 10 MG/2 ML VIAL IV PUSH SCH ×3 (05:08→21:13)
[2016-11-15] MEDS: DIAZEPAM 10 MG TAB PO SCH ×3 (06:10→21:11)
[2016-11-15] MEDS: SUCRALFATE 1 GM/10 ML CUP PO SCH ×4 (06:10→21:12)
[2016-11-15] MEDS: RESP: ALBUTEROL 2.5 MG/IPRATROPIUM 0.5 MG NEB (SCH) NEB ×3 (08:20→20:10)
--- NOTE | 2016-11-15 08:24 | MP ---
cc: EMMA GALINDO HAROLD H. MD DATE OF SURGERY 11/14/2016 PROCEDURE Percutaneous endoscopic gastrostomy tube placement. INDICATIONS Weight loss. REFERRING PHYSICIAN Emma Galindo MD PROCEDURE After informed consent was obtained, the patient was placed in the supine position. She was sedated by the Anesthesia Service. After adequate sedation was achieved, the Pentax video gastroscope was inserted in the oropharynx and advanced through the esophagus, stomach and duodenum. It was then slowly withdrawn, examining the mucosal surfaces carefully. All the secretions were aspirated. The stomach was then inflated well and transillumination as performed indicating excellent transillumination in the left upper quadrant. The site was then sterilized and anesthetized with 1% Xylocaine. A stab wound was made with the scalpel and through the stab wound a needle and catheter were introduced into the abdomen and into the stomach under visualization. The catheter was grasped with the snare and the needle was removed. Through the catheter a wire was advanced into the abdomen and grasped with the snare. It was pulled out through the mouth and the PEG tube was then attached to the wire and pulled down through the mouth and into position in the usual way. The scope was then reintroduced to confirm excellent location of the internal bumper. The PEG tube was then fitted with the extra devices. It was bandaged and the scope was withdrawn. The procedure was then terminated. She tolerate the procedure well and was returned to the recovery area in good condition. FINDINGS 1. The esophagus, stomach and duodenum were normal. 2. The PEG tube was placed in the usual way without any difficulty. IMPRESSION Successful PEG tube placement. PLAN 1. The patient will be on sips of clear liquids today and then she can advance her diet tomorrow. 2. Use the PEG tube today for medications and flush with water and then tomorrow okay to use the PEG tube for tube feedings. 3. Recommend continuous feeding at a low rate to start and advance as tolerated. Silvestre Braun MD HHS/SSB /9:42 AM /8:17 AM
[2016-11-15] MEDS ORDERED: diphenhydrAMINE HCL 50 MG CAP PO ONE (08:30)
[2016-11-15] MEDS ORDERED: predniSONE 50 MG TAB PO SCH (08:30)
[2016-11-15] MEDS: POTASSIUM CHLORIDE 10 MEQ CONTROLLED RELEASE TAB PO SCH ×2 (09:42→21:12)
[2016-11-15] MEDS: ENOXAPARIN SODIUM 30 MG/0.3 ML SYRINGE SQ SCH ×2 (09:42→21:12)
[2016-11-15] MEDS: PANTOPRAZOLE SODIUM 40 MG VIAL IV PUSH SCH (09:43)
[2016-11-15] MEDS: FLUTICASONE 100 MCG/VILANTEROL 25 MCG INHALER INH SCH (09:47)
--- NOTE | 2016-11-15 12:34 | HHI.PR ---
Subjective Subjective Notes Resting in bed Wants to try mashed potatoes Painful Objective Vitals/I&O Vital Signs Date Time Temp Pulse Resp B/P Pulse Ox O2 Delivery O2 Flow Rate FiO2 11/15/16 10:00 100 Room Air 11/15/16 08:00 98.1 69 18 127/86 11/14/16 07:47 21 11/12/16 14:19 2.00 Cardiovascular: Regular Lungs: Clear Abdomen: Other (abdomen flat; PEG in place without any complications; clamped ) Extremities: No edema A/P Assessment and Plan 51 year old female s/p Laparoscopic division of median arcuate ligament in September 2016; now back with abdominal pain and weight loss -PEG placed yesterday; management per GI -Plan to start TF today; dietary consulted s/p celiac plexus block -OOB and mobilize -Pain control -IVF -SCDs -Palliative Care following Anna Botello Nov 15, 2016 12:34
--- NOTE | 2016-11-15 13:01 | HHI.PR ---
Subjective Remarks Pt states her abdominal pain has remained an 8/10 and hasn't worsened. She feels that the pain on the right is improving and states that she feels the pain more on the left near PEG tube area. no nausea or vomiting, no chest pain or SOB She also tells me that she is confused why she needs a CT chest, she is aware of the lung nodule and has close f/u w Dr. Cedillo, she had a CT chest done 6 weeks ago [address] Dr[address] Cedillo the first sunday of the month, she has an appt w him at the end of next month. Objective Vitals Vital Signs Date Time Temp Pulse Resp B/P Pulse Ox O2 Delivery O2 Flow Rate FiO2 11/15/16 10:00 100 Room Air 11/15/16 08:24 99 11/15/16 08:00 98.1 69 18 127/86 100 11/15/16 04:00 96.5 66 18 109/64 98 11/15/16 00:00 97.2 66 22 138/68 98 11/14/16 20:00 96.6 71 22 134/81 98 11/14/16 20:00 Room Air 11/14/16 19:47 98 11/14/16 16:00 97.6 72 18 148/80 100 I/O 11/14/16 11/14/16 11/14/16 11/15/16 11/15/16 11/15/16 07:00 15:00 23:00 07:00 15:00 23:00 Intake Total 745 ml 390 ml 964 ml 974 ml Balance 745 ml 390 ml 964 ml 974 ml Intake Oral 0 ml 240 ml 320 ml 240 ml IV Total 745 ml 644 ml 734 ml Other 150 ml # Voids 3 2 2 3 # Bowel Movements 0 0 0 0 Result Diagram: 11/14/16 0442 11/14/16 0442 Imaging Last Impressions Spine CT 11/10/16 0000 Signed Impressions: Service Date/Time: Thursday, November 10, 2016 10:59 - CONCLUSION: Uncomplicated celiac plexus block as above Ankush Cano MD Abdomen/Pelvis CT 11/08/16 0000 Signed Impressions: Service Date/Time: Tuesday, November 08, 2016 09:32 - CONCLUSION: 1. Dilated common bile duct measuring 11 mm in although this could represent reservoir phenomenon status post cholecystectomy correlation with alkaline phosphatase and bilirubin levels is suggested to rule out biliary obstruction. 2. 9 mm spiculated noncalcified nodule within the right lower lobe which is indeterminate. Outpatient CT of the chest would be helpful for further characterization if clinically indicated. 3. Some free fluid within the cul-de-sac. Deondre Gil MD Objective Remarks GENERAL: Very thin, fragile. No distress. CARDIOVASCULAR: Regular rate and rhythm without murmurs RESPIRATORY: Decreased breath sounds bilaterally. no wheezing GASTROINTESTINAL: Abdomen soft, tender to palpation diffusely. PEG tube in place MUSCULOSKELETAL: No cyanosis, or edema. Procedures Celiac plexus block 11/10/16 PEG tube placement 11/14/16 A/P Problem List: (1) Intractable epigastric abdominal pain ICD Code: R10.13 Status: Acute (2) Median arcuate ligament syndrome ICD Code: I77.4 Status: Acute (3) Gastritis ICD Code: K29.70 Status: Acute (4) Chronic obstructive pulmonary disease ICD Code: J44.9 Status: Acute (5) Lung nodule ICD Code: R91.1 Status: Acute (6) Hypoglycemia ICD Code: E16.2 Status: Resolved (7) H/O: CVA (cerebrovascular accident) ICD Code: Z86.73 Status: Chronic (8) Anxiety ICD Code: F41.9 Status: Acute Assessment and Plan (1) Intractable epigastric abdominal pain Recently diagnosed with median arcuate ligament syndrome and is s/p laparoscopic division of median arcuate ligament. CT abdomen showed: Dilated common bile duct measuring 11 mm; 9 mm spiculated noncalcified nodule within the right lower lobe which is indeterminate; Some free fluid within the cul-de- sac. GI has been consulted and the pt is s/p EGD which revealed gastritis. Status post celiac plexus block by interventional radiology and now PEG tube placement. - biopsy from EGD: gastric mucosa without significant histopathologic abnormality - continue pain control and antiemetics as needed. - followed by GI: trial of ARABELLA delarosa vs PEG Plan is to start feedings today, dietary recommends vital 1.5@25ml/hr and increase 10ml q4hrs for a goal of 35ml/hr. morphine and Roxicodone prn. Palliative care following. Appreciate input. (2) Median arcuate ligament syndrome As above. sp laparoscopic division of median arcuate ligament. (3) Gastritis Stable. Continue PPI - On Carafate and Protonix. (4) Chronic obstructive pulmonary disease Has been on hospice twice and removed herself both times. She uses somebody else 's home oxygen. Has a spiculated lung nodule as noted above. Pt states that she has close f/u w pulm Dr. Cedillo and last CT chest was 6 weeks ago. - Duonebs and oxygen as needed. - continue home inhaler. - IS. - s/p home walk test, failed, will need home O2 CM to assist - on DuoNeb's every 6 hours while the patient is awake. - Continue supplemental oxygen to keep oxygen saturation 89-92% (5) Lung nodule As seen on CT abdomen and pelvis. d/c CT chest as pt tells me that she sees Dr. Cedillo and she is being closely monitored by him. last CT chest was 6 weeks ago, she saw him first sunday of this month and has an appt next month. (6) Hypoglycemia Due to low oral intake. Now resolved. Continue to monitor accuchecks. (7) H/O: CVA (cerebrovascular accident) Chronic. With right arm weakness. - PT eval ordered - patient may go home without PT. (8) Anxiety Seems stable. Continue Valium and Xanax as needed for sleep. GI prophylaxis: On PPI. DVT prophylaxis: SCDs, lovenox Discharge Planning Tube feeds will be started today d/c per primary team Problem Qualifiers (1) Gastritis: Qualified Code: K29.00 - Acute gastritis without hemorrhage, unspecified gastritis type (2) Chronic obstructive pulmonary disease: Qualified Code: J42 - Chronic bronchitis, unspecified chronic bronchitis type Jocelin Miramontes MD Nov 15, 2016 13:01
--- NOTE | 2016-11-15 15:55 | HHI.HCPN ---
Reason for visit a. To assist with evaluation and management of symptoms including: pain, anxiety, nausea b. To assist medical decision maker(s) with: better understanding of current medical conditions; weighing benefits/burdens of medical treatment options; making medical treatment decisions. . Subjective/Interval History Patient is a 51-year-old with a past medical history of COPD, emphysema, osteoporosis, GERD, depression, sarcoidosis. The patient had median arcuate ligament syndrome, and underwent surgery on 10/11/2016 laparoscopically. Patient presented to [place] with severe abdominal pain and nausea when eating on and subsequently underwent a celiac plexus block without symptom relief. CT abdomen/pelvis revealed a dilated common bile duct measuring 11 mm; 9 mm spiculated noncalcified nodule within the right lower lobe which is indeterminate; some free fluid within the cul-de-sac; patient states that follows up with her plant breeder (Dr. Cedillo) regularly and reported he last f/ u CT chest was 6 weeks ago. Chronic abdominal pain with intermittent nausea, inability to tolerate PO nutrition secondary to pain and associated weight loss s/p PEG tube placement on 11/14/16. Plan to start TF today, dietary has recommended Vital 1.5 @ 25ml/ hour and increase 10ml q4 hours until at goal of 35ml/hr. Denies nausea on exam. HR 70, respirations 18, BP 128/73, oxygen saturation 98% on room air, oral temperature 98.7 No recent lab work available. Patient reporting ongoing abdominal pain that is rated 8 out of 10. She states the right upper quadrant pain has decreased, but the pain has increased in the left upper and lower lobe. Current orders for oxycodone 5mg-10mg q4 hours by mouth PRN pain and Hydromorphone 1mg IV q3 hours PRN pain, medication requirements are significant. 24-hour dosing = Oxycodone 10mg PO x 4; Hydromorphone 1 mg IV x 5. Patient will likely be discharged in the upcoming days; will discontinue IV Hydromorphone and increase Oxycodone frequency to 5mg - 10mg PO q3 hours PRN. Patient will need to follow up with pain management outpatient; patient was previously seeing a ship painter helper but needs to find a new one for unknown reasons. . Advance Directives Living Will: Never completed Health Care Surrogate: Never completed Durable Power of Toll Service Observer: Never completed (she had recinded her DNR while she was in hospice) Objective Vital Signs Date Time Temp Pulse Resp B/P Pulse Ox O2 Delivery O2 Flow Rate FiO2 11/15/16 15:06 96 11/15/16 12:00 98.7 70 18 128/73 98 11/15/16 10:00 100 Room Air 11/15/16 08:24 99 11/15/16 08:00 98.1 69 18 127/86 100 11/15/16 04:00 96.5 66 18 109/64 98 11/15/16 00:00 97.2 66 22 138/68 98 11/14/16 20:00 96.6 71 22 134/81 98 11/14/16 20:00 Room Air 11/14/16 19:47 98 11/14/16 16:00 97.6 72 18 148/80 100 Intake & Output 11/15/16 11/15/16 07:00 19:00 Intake Total 1294 ml 915 ml Balance 1294 ml 915 ml Intake Oral 560 ml IV Total 734 ml 915 ml # Voids 5 # Bowel Movements 0 . Physical Exam CONSTITUTIONAL/GENERAL: This is thin frail middle age female in no acute distress SKIN: No jaundice, rashes, or lesions. HEAD: Atraumatic. Normocephalic. EYES: Pupils equal and round and reactive. Extraocular motions intact. No scleral icterus. Fundi not examined. ENT: Hearing grossly normal. Nose without bleeding or purulent drainage NECK: Trachea midline. CARDIOVASCULAR: Regular rate and rhythm. No murmurs, gallops, or rubs. No JVD. Peripheral pulses symmetric. RESPIRATORY/CHEST: Symmetric, unlabored respirations. Clear to auscultation. Breath sounds diminished bilaterally. GASTROINTESTINAL: Abdomen soft, nondistended. Diffuse tenderness rated 8 out of 10, tender to palpation. Hypoactive bowel sounds.S/p PEG tube placement on GENITOURINARY: Without palpable bladder distension. MUSCULOSKELETAL: Extremities without clubbing, cyanosis, or edema. LYMPHATICS: No palpable cervical or supraclavicular adenopathy. NEUROLOGICAL: Awake and alert. Follows commands. Cognitively sharp. Moves all extremities. PSYCHIATRIC: No obvious anxiety/depression. no apparent hallucinations or other psychotic thought process. . Diagnostic Tests Laboratory Laboratory Tests Test 11/14/16 04:42 White Blood Count 5.9 TH/MM3 (4.0-11.0) Red Blood Count 4.46 MIL/MM3 (4.00-5.30) Hemoglobin 11.5 GM/DL (11.6-15.3) Hematocrit 36.5 % (35.0-46.0) Mean Corpuscular Volume 81.7 FL (80.0-100.0) Mean Corpuscular Hemoglobin 25.7 PG (27.0-34.0) Mean Corpuscular Hemoglobin 31.5 % Concent (32.0-36.0) Red Cell Distribution Width 14.7 % (11.6-17.2) Platelet Count 148 TH/MM3 (150-450) Mean Platelet Volume 8.3 FL (7.0-11.0) Neutrophils (%) (Auto) 40.3 % (16.0-70.0) Lymphocytes (%) (Auto) 34.3 % (9.0-44.0) Monocytes (%) (Auto) 10.2 % (0.0-8.0) Eosinophils (%) (Auto) 14.3 % (0.0-4.0) Basophils (%) (Auto) 0.9 % (0.0-2.0) Neutrophils # (Auto) 2.4 TH/MM3 (1.8-7.7) Lymphocytes # (Auto) 2.0 TH/MM3 (1.0-4.8) Monocytes # (Auto) 0.6 TH/MM3 (0-0.9) Eosinophils # (Auto) 0.8 TH/MM3 (0-0.4) Basophils # (Auto) 0.1 TH/MM3 (0-0.2) CBC Comment DIFF FINAL Differential Comment Sodium Level 142 MEQ/L (136-145) Potassium Level 3.7 MEQ/L (3.5-5.1) Chloride Level 108 MEQ/L (98-107) Carbon Dioxide Level 25.7 MEQ/L (21.0-32.0) Anion Gap 8 MEQ/L (5-15) Blood Urea Nitrogen 2 MG/DL (7-18) Creatinine 0.45 MG/DL (0.50-1.00) Estimat Glomerular Filtration 147 ML/MIN Rate (>89) Random Glucose 75 MG/DL (74-106) Calcium Level 8.6 MG/DL (8.5-10.1) Phosphorus Level 4.3 MG/DL (2.5-4.9) Magnesium Level 1.6 MG/DL (1.5-2.5) Total Bilirubin 0.3 MG/DL (0.2-1.0) Aspartate Amino Transf 11 U/L (15-37) (AST/SGOT) Alanine Aminotransferase 13 U/L (10-53) (ALT/SGPT) Alkaline Phosphatase 40 U/L (45-117) Total Protein 6.1 GM/DL (6.4-8.2) Albumin 3.0 GM/DL (3.4-5.0) . Result Diagram: 11/14/16 0442 11/14/16 0442 Procedures Plexus block 11/10/2016 by specials PEG tube placement 11/14/2016 . Assessment and Plan Disease Oriented Problem List: (1) Chronic obstructive pulmonary disease (2) Intractable epigastric abdominal pain (3) Sarcoidosis Symptom Scale: (1) Nausea 0-10 Scale: Unable to quantify (2) Pain 0-10 Scale: 8 (3) Anxiety Pertinent Non-Medical Issues Psychosocial: Patient was born in [place], raised in the [place]. She is , Ronit Raymond. Spiritual: Druze jose Legal: [place] statutes, in the absence of written advanced directives healthcare proxy decision-making falls to the patient's spouse Ethical issues impacting care: No known ethical issues impacting care . Important Contacts Jerome Raymond Prognosis 51 year old with copd, sarcoidosis, lung mass, and now abdominal pain and intractable nausea and vomiting. Prognosis is guarded. Code Status: Full Code Plan == FULL CODE == Decision making: Patient is currently incapacitated to make her own medical decisions. Per [place] statutes, and absence of written advanced directives healthcare proxy decision making would fall to the patient's . == Goals of care: Goals are aggressive at this time. Patient has been on hospice (both [facility] and [facility]) in the past and have felt hospice overmedicated her. Her goals are not hospice oriented or appropriate, should she decline, like she has in the past she would want to go back to the hospital. == Chronic abdominal pain with intermittent nausea, inability to tolerate PO nutrition secondary to pain and associated weight loss s/p PEG tube placement on 11/14/16. Plan to start TF today, dietary has recommended Vital 1.5 @ 25ml/ hour and increase 10ml q4 hours until at goal of 35ml/hr. Denies nausea on exam. == == Symptom managementpain: Pain etiology is likely multi-factorial. She does appear to have a high opioid tolerance, having ongoing pain rated 8 out of 10 status post celiac plexus block without symptom relief. She states the right upper quadrant pain has decreased, but the pain has increased in the left upper and lower lobe. Current orders for oxycodone 5mg-10mg q4 hours by mouth PRN pain and Hydromorphone 1mg IV q3 hours PRN pain, medication requirements are significant. 24-hour dosing = Oxycodone 10mg PO x 4; Hydromorphone 1 mg IV x 5. Patient will likely be discharged in the upcoming days; will discontinue IV Hydromorphone and increase Oxycodone frequency to 5mg- 10mg PO q3 hours PRN. == Patient will need to follow up with pain management outpatient; patient was previously seeing a ship painter helper but needs to find a new one for unknown reasons. . == Palliative care will continue to follow patient throughout her hospitalization to establish trust, assist with symptom management and clarification of medical treatment goals. == Discussed case with Dr. Miramontes, Dr. Barrett, case management and nurse (Jessica ). Alma Lofton Nov 15, 2016 15:54
[2016-11-15] MEDS: ALPRAZolam 0.5 MG TAB PO PRN (22:05)
[2016-11-16 00:11] VITALS: BP 103/56; PULSE 79; RESP 17; TEMP 96.1; O2SAT 97
[2016-11-16] MEDS: METOCLOPRAMIDE HCL 10 MG/2 ML VIAL IV PUSH SCH ×2 (06:50→14:40)
[2016-11-16] MEDS: SUCRALFATE 1 GM/10 ML CUP PO SCH ×3 (06:50→17:00)
[2016-11-16] MEDS: DIAZEPAM 10 MG TAB PO SCH ×2 (06:50→14:40)
[2016-11-16 07:54] VITALS: O2SAT 100
[2016-11-16 08:00] VITALS: BP 138/85; PULSE 74; RESP 18; TEMP 97.9; O2SAT 100
[2016-11-16] MEDS: RESP: ALBUTEROL 2.5 MG/IPRATROPIUM 0.5 MG NEB (SCH) NEB ×2 (08:00→12:16)
--- NOTE | 2016-11-16 08:30 | HHI.FF ---
Face to Face Verification Diagnosis: (1) Intractable epigastric abdominal pain (2) Chronic obstructive pulmonary disease Home Health Nursing Order: Medical education Oxygen administration education Wound care and dressing changes Nursing assessment with vital signs Instructions: Tube feeing---continuous tube feeing---Vital 1.5 at 35 cc/hr; okay for regular diet as well as patient can tolerate Oxygen administration---2L continuous I have seen patient Lorie Raymond on 11/16/16. My clinical findings support the need for the requested home health care services because: Limited ability to care for self High risk of falls I certify that my clinical findings support that this patient is homebound because: Post-op weakness Anna Botello Nov 16, 2016 08:30
[2016-11-16] MEDS ORDERED: KANGAROO JOEY P1 MIS (08:32)
[2016-11-16] MEDS: FLUTICASONE 100 MCG/VILANTEROL 25 MCG INHALER INH SCH (09:00)
[2016-11-16] MEDS: POTASSIUM CHLORIDE 10 MEQ CONTROLLED RELEASE TAB PO SCH (09:09)
[2016-11-16] MEDS: PANTOPRAZOLE SODIUM 40 MG VIAL IV PUSH SCH (09:09)
[2016-11-16] MEDS: ENOXAPARIN SODIUM 30 MG/0.3 ML SYRINGE SQ SCH (09:09)
[2016-11-16] MEDS ORDERED: WALKER WHEELS/F1 MIS (10:20)
[2016-11-16 12:00] VITALS: BP 134/86; PULSE 76; RESP 18; TEMP 96.9; O2SAT 99
--- NOTE | 2016-11-16 15:29 | HHI.PR ---
Subjective Remarks Pt tells me that she is being discharged later today, she is excited and is pleased w the care she got here. she was able to flush the peg tube w no difficulties. no nausea or vomiting, tolerating tube feeds Objective Vitals Vital Signs Date Time Temp Pulse Resp B/P Pulse Ox O2 Delivery O2 Flow Rate FiO2 11/16/16 12:00 96.9 76 18 134/86 99 11/16/16 08:00 97.9 74 18 138/85 100 11/16/16 07:54 100 11/16/16 00:11 96.1 79 17 103/56 97 11/15/16 20:20 97.8 72 17 116/68 96 11/15/16 20:10 96 21 I/O 11/15/16 11/15/16 11/15/16 11/16/16 11/16/16 11/16/16 07:00 15:00 23:00 07:00 15:00 23:00 Intake Total 974 ml 915 ml 480 ml 280 ml 440 ml Output Total 1000 ml 800 ml Balance 974 ml 915 ml -520 ml -520 ml 440 ml Intake Oral 240 ml 480 ml 280 ml IV Total 734 ml 915 ml 200 ml Tube Feeding 240 ml Output Urine Total 1000 ml 800 ml # Voids 3 1 # Bowel Movements 0 Result Diagram: 11/14/16 0442 11/14/16 0442 Imaging Last Impressions Spine CT 11/10/16 0000 Signed Impressions: Service Date/Time: Thursday, November 10, 2016 10:59 - CONCLUSION: Uncomplicated celiac plexus block as above Ankush Cano MD Abdomen/Pelvis CT 11/08/16 0000 Signed Impressions: Service Date/Time: Tuesday, November 08, 2016 09:32 - CONCLUSION: 1. Dilated common bile duct measuring 11 mm in although this could represent reservoir phenomenon status post cholecystectomy correlation with alkaline phosphatase and bilirubin levels is suggested to rule out biliary obstruction. 2. 9 mm spiculated noncalcified nodule within the right lower lobe which is indeterminate. Outpatient CT of the chest would be helpful for further characterization if clinically indicated. 3. Some free fluid within the cul-de-sac. Deondre Gil MD Objective Remarks GENERAL: Very thin, fragile. No distress. CARDIOVASCULAR: Regular rate and rhythm without murmurs RESPIRATORY: Decreased breath sounds bilaterally. no wheezing GASTROINTESTINAL: Abdomen soft,non tender to palpation . PEG tube in place MUSCULOSKELETAL: No cyanosis, or edema. Procedures Celiac plexus block 11/10/16 PEG tube placement 11/14/16 A/P Problem List: (1) Intractable epigastric abdominal pain ICD Code: R10.13 Status: Acute (2) Median arcuate ligament syndrome ICD Code: I77.4 Status: Acute (3) Gastritis ICD Code: K29.70 Status: Acute (4) Chronic obstructive pulmonary disease ICD Code: J44.9 Status: Acute (5) Lung nodule ICD Code: R91.1 Status: Acute (6) Hypoglycemia ICD Code: E16.2 Status: Resolved (7) H/O: CVA (cerebrovascular accident) ICD Code: Z86.73 Status: Chronic (8) Anxiety ICD Code: F41.9 Status: Acute Assessment and Plan (1) Intractable epigastric abdominal pain Recently diagnosed with median arcuate ligament syndrome and is s/p laparoscopic division of median arcuate ligament. CT abdomen showed: Dilated common bile duct measuring 11 mm; 9 mm spiculated noncalcified nodule within the right lower lobe which is indeterminate; Some free fluid within the cul-de- sac. GI has been consulted and the pt is s/p EGD which revealed gastritis. Status post celiac plexus block by interventional radiology and now PEG tube placement. - biopsy from EGD: gastric mucosa without significant histopathologic abnormality - continue pain control and antiemetics as needed per primary team. - followed by GI: trial of reglan, GJ vs PEG on vital 1.5@ 35ml/hr. on Roxicodone prn. Palliative care following. Appreciate input. (2) Median arcuate ligament syndrome As above. sp laparoscopic division of median arcuate ligament. (3) Gastritis Stable. Continue PPI - On Carafate and Protonix. (4) Chronic obstructive pulmonary disease Has been on hospice twice and removed herself both times. She uses somebody else 's home oxygen. Has a spiculated lung nodule as noted above. Pt states that she has close f/u w pulm Dr. Cedillo and last CT chest was 6 weeks ago. - Duonebs and oxygen as needed. - continue home inhaler. IS. - s/p home walk test, failed, will need home O2 CM to assist - on DuoNeb's every 6 hours while the patient is awake. - Continue supplemental oxygen to keep oxygen saturation 89-92% (5) Lung nodule As seen on CT abdomen and pelvis. d/c CT chest as pt tells me that she sees Dr. Cedillo and she is being closely monitored by him. last CT chest was 6 weeks ago, she saw him first sunday of this month and has an appt next month. (6) Hypoglycemia Due to low oral intake. Now resolved. Continue to monitor accuchecks. (7) H/O: CVA (cerebrovascular accident) Chronic. With right arm weakness. - PT eval ordered - patient may go home without PT. (8) Anxiety Seems stable. Continue Valium and Xanax as needed for sleep. GI prophylaxis: On PPI. DVT prophylaxis: SCDs, lovenox Discharge Planning d/c per primary team. medically stable for discharge. Problem Qualifiers (1) Gastritis: Qualified Code: K29.00 - Acute gastritis without hemorrhage, unspecified gastritis type (2) Chronic obstructive pulmonary disease: Qualified Code: J42 - Chronic bronchitis, unspecified chronic bronchitis type Jocelin Miramontes MD Nov 16, 2016 15:29
[2016-11-16 16:00] VITALS: BP 122/69; PULSE 79; RESP 18; TEMP 97; O2SAT 98
[2016-11-16] MEDS ORDERED: OXYIR PO (20:21)
--- NOTE | 2016-11-30 15:56 | HHI.DS ---
Discharge Summary Admission Date Nov 10, 2016 at 12:16 Discharge Date: Nov 16, 2016 Admitting Diagnosis Brief History 51 year old female s/p Laparoscopic division of median arcuate ligament in September 2016; now back with abdominal pain and weight loss PE at Discharge Thin female resting in bed Cardio: RRR Resp: CTAB Abd: lap sites healed; PEG in place with TF Hospital Course This is a 51 year old female s/p Laparoscopic division of median arcuate ligament in September 2016; now back with abdominal pain and weight loss. A PEG tube was placed for continues enteral nutrition. Her pain was controlled with PO pain medications. She was DCed home with [facility]. She will follow up in the office. Pt Condition on Discharge: Good Discharge Disposition: Disch w/ Home Health Serv Discharge Instructions DIET: Follow Instructions for: As Tolerated, No Restrictions Additional Diet Instructions: TF ---Vital 1.5 goal= 35 cc/hr-- continous Okay for regular diet as tolerated Activities you can perform: See Additionl Instruction Other Activity Instructions: Okay to shower [facility] RN to care for PEG tube Anna Botello Nov 30, 2016 15:56
--- NOTE | 2016-12-05 14:50 | HHI.HP ---
cc: Giancarlo Cheney MD [facility] Service General Surgery Primary Care Physician Jonn Stephenson, DO Admission Diagnosis Weight loss; abdominal pain; s/p Laparoscopic division of median arcuate ligament in September 2016 Chief Complaint: Weight loss Abdominal pain History of Present Illness This is a 51 year old female s/p Laparoscopic division of median arcuate ligament in September 2016 who was at her follow up visit in the office with Dr. Cheney complaining of severe abdominal pain and unable to tolerate anything by mouth. The patient was admitted for EGD workup and evaluation of pain. Review of Systems Constitutional: COMPLAINS OF: Weight loss, Change in appetite, DENIES: Chills Endocrine: DENIES: Polydipsia, Polyuria, Polyphagia Eyes: DENIES: Eye inflammation Ears, nose, mouth, throat: DENIES: Vertigo Cardiovascular: DENIES: Palpitations Gastrointestinal: COMPLAINS OF: Abdominal pain, Nausea, DENIES: Vomiting, Difficulty Swallowing Genitourinary: DENIES: Urinary frequency, Urinary incontinence Musculoskeletal: DENIES: Muscle aches Integumentary: DENIES: Abnormal pigmentation Hematologic/lymphatic: DENIES: Bruising Immunologic/allergic: DENIES: Eczema Neurologic: DENIES: Headache, Localized weakness Psychiatric: DENIES: Confusion, Agitation Past Family Social History Past Medical History COPD Sarcoidosis Median arcuate ligament syndrome CVA Myocardial infarction 2 Fibromyalgia Depression Insomnia Neuropathy Past Surgical History Laparoscopic division of median arcuate ligament in September 2016 Tonsillectomy Appendectomy Complete hysterectomy Reported Medications Promethazine-Codeine Alprazolam Diazepam Albuterol Flexeril Breo inhaler Allergies: Coded Allergies: Aspirin (Verified Allergy, Severe, 10/11/16) Contrast Media (Verified Allergy, Intermediate, HIVES, 10/11/16) *MDRO Multi-Drug Resistant Organism (Unverified Adverse Reaction, Severe, MRSA, 11/09/16) MRSA PCR (nares) POSITIVE - 11/09/16 Family History Noncontributory Social History Positive tobacco use Denies EtOH use Denies illicit drug use Physical Exam Physical Exam GENERAL: Very thin female resting in bed in no acute distress. SKIN: Warm and dry. HEAD: Atraumatic. Normocephalic. EYES: Pupils equal and round. No scleral icterus. No injection or drainage. ENT: No nasal bleeding or discharge. Mucous membranes pink and moist. NECK: Trachea midline. CARDIOVASCULAR: Regular rate and rhythm. RESPIRATORY: No accessory muscle use. Clear to auscultation. Breath sounds equal bilaterally. GASTROINTESTINAL: Abdomen soft, flat; non distended; lap sites healed; tender to palpation in all four quadrants. MUSCULOSKELETAL: Extremities without clubbing, cyanosis, or edema. No obvious deformities. NEUROLOGICAL: Awake and alert. No obvious cranial nerve deficits. Motor grossly within normal limits. Five out of 5 muscle strength in the arms and legs. Normal speech. PSYCHIATRIC: Appropriate mood and affect; insight and judgment normal. Assessment and Plan Assessment and Plan This is a 51 year old female s/p Laparoscopic division of median arcuate ligament in September 2016; now back with abdominal pain and weight loss -GI consultation for possible EGD -Clear liquids; NPO after MN -OOB and mobilize -Pain control -IVF Discussed Condition With Anna Holloway Dec 05, 2016 14:50 Giancarlo Cheney MD Dec 06, 2016 10:49
== END 2016-11-16 20:05 | disposition home health service (06) | DRG 392 ==
LOC: N07B 14:11 → OBSVTOIN 11-10 12:16
PROVIDERS: ADMIT Surgery; ATTEND Surgery
PROC: 0DB68ZX Excision of Stomach, Via Natural or Artificial Opening Endoscopic, Diagnostic (ICD-10-PCS; principal; 2016-11-08 12:00)
PROC: 3E0T3TZ Introduction of Destructive Agent into Peripheral Nerves and Plexi, Percutaneous Approach (ICD-10-PCS; 2016-11-10)
PROC: 0DH63UZ Insertion of Feeding Device into Stomach, Percutaneous Approach (ICD-10-PCS; 2016-11-14)
DX: K29.70 Gastritis, unspecified, without bleeding (principal); E46 Unspecified protein-calorie malnutrition; R13.10 Dysphagia, unspecified; D86.9 Sarcoidosis, unspecified; G62.9 Polyneuropathy, unspecified; J44.9 Chronic obstructive pulmonary disease, unspecified; Z68.1 Body mass index [BMI] 19.9 or less, adult; G47.00 Insomnia, unspecified; F32.9 Major depressive disorder, single episode, unspecified; K21.9 Gastro-esophageal reflux disease without esophagitis; M79.7 Fibromyalgia; M81.0 Age-related osteoporosis without current pathological fracture; F41.9 Anxiety disorder, unspecified; R91.1 Solitary pulmonary nodule; F17.210 Nicotine dependence, cigarettes, uncomplicated; E16.2 Hypoglycemia, unspecified; G89.29 Other chronic pain; R11.0 Nausea; I25.2 Old myocardial infarction; Z86.14 Personal history of Methicillin resistant Staphylococcus aureus infection; I69.331 Monoplegia of upper limb following cerebral infarction affecting right dominant side; Z91.041 Radiographic dye allergy status
CPT/HCPCS: 64635; 74177; 76937; 77012; 80048; 80053; 82272; 82948; 83690; 83735; 84100; 85025; 85027; 85610; 85730; 87641; 88305; 88312; 93005; 94620; 94640; 94664; 99152; 99153; C9113; J0690; J1170; J1650; J2060; J2250; J2765; J3010; J7030; J7042; J7512; Q0163; Q9967

== ENCOUNTER 2016-12-10 19:02 | Emergency (ER) | payer MEDICARE, OTHER ==
[~2016-12-10] VITALS: Ht 152.4 cm; Wt 45.0 kg
[~2016-12-10 19:02] MED LIST changes: +KANGAROO JOEY P1 MIS; +OXYGENDME NAS.CANULA; +OXYIR PO; +WALKER WHEELS/F1 MIS
[2016-12-10 19:04] VITALS: BP 127/77; PULSE 95; RESP 18; TEMP 97.7; O2SAT 98
[2016-12-10] MEDS ORDERED: OXYC-395 PO (20:32)
--- NOTE | 2016-12-10 20:48 | PD ---
HPI Chief Complaint: [employer] Viewer Problem Time Seen by Provider: 20:25 Travel History International Travel<30 days: No Contact w/Intl Traveler<30days: No Traveled to known affect area: No History of Present Illness HPI This is a 51-year-old female Laparoscopic who had division of median arcuate ligament in September 2016 and PEG tube placement 1 month ago for weight loss who presents to the emergency department reporting severe pain around her PEG tube site, constant ever since the surgery, described as a burning and stabbing pain with no associated vomiting. She has felt a little bit nauseous. She's been receiving oxycodone from Dr. Cheney but it's not been helping. She denies pain with using the PEG tube and says it just hurts all the time. She does have a history of chronic opiate use and she says she's always been sick. PFSH Past Medical History Arthritis: Yes (Rheumotoid) Asthma: No Autoimmune Disease: No Anxiety: Yes Depression: Yes Cancer: No (pre colon ca) Cardiovascular Problems: No Chemotherapy: No COPD: Yes Cerebrovascular Accident: Yes (CVA AND TIA 2006) Diabetes: No Diminished Hearing: No Diverticulitis: Yes Endocrine: No Fibromyalgia: Yes Gastrointestinal Disorders: Yes GERD: Yes Genitourinary: No Headaches: Yes Hepatitis: No Hiatal Hernia: No Immune Disorder: No Musculoskeletal: Yes Neurologic: Yes (STROKE RIGHT SIDE WEAKNESS) Psychiatric: Yes Reproductive: No Respiratory: Yes Migraines: Yes Radiation Therapy: No Seizures: No Sickle Cell Disease: No Sleep Apnea: Yes Thyroid Disease: No Ulcer: Yes (removal) ?: Not : 6 Para: 3 Miscarriage: 3 Past Surgical History Abdominal Surgery: Yes (lap acsencion., PEG TUBE PLACED, "SOMETHING REMOVED FROM STOMACH") AICD: No Appendectomy: Yes Body Medical Devices: SARCARDOSIS Cardiac Surgery: No Cholecystectomy: Yes Ear Surgery: No Endocrine Surgery: Yes (lymphnode removal) Eye Surgery: No Genitourinary Surgery: No Gynecologic Surgery: Yes (hysterectmy) Hysterectomy: Yes Joint Replacement: No Oral Surgery: Yes (TONSILLECTOMY) Pacemaker: No Thoracic Surgery: No Tonsillectomy: Yes Other Surgery: Yes Social History Alcohol Use: No Tobacco Use: Yes (1-2 CIGS DAILY) Substance Use: No Allergies-Medications (Allergen,Severity, Reaction): Coded Allergies: Aspirin (Verified Allergy, Severe, 12/10/16) Contrast Media (Verified Allergy, Intermediate, HIVES, 12/10/16) *MDRO Multi-Drug Resistant Organism (Unverified Adverse Reaction, Severe, MRSA, 12/10/16) MRSA PCR (nares) POSITIVE - 11/09/16 Reported Meds & Prescriptions Reported Meds & Active Scripts Active Walker with Front Wheels (Device) 1 Mis Mis 1 Ea .ROUTE DIRECTED With seat Kangaroo Ta Feeding Tube Pump Set 1 Mis Mis 1 Ea .ROUTE DIRECTED Oxygen (O2) Device 2 Liter TAMEKA.CANULA CONTINUOUS Oxygen Concentrator Portable Gaseous 2 L/min via Nasal Canula Continuous For 99 months Reported Oxycodone (Oxycodone HCl) 10 Mg Tab 10 Mg PO Q6H PRN [Oxyir ] 5 Mg PO Q3HR PRN Promethazine-Codeine Liq 6.25-10 Mg/5 Ml Syrp 5 Ml PO Q4H PRN Alprazolam 1 Mg Tab 1 Mg PO HS Diazepam 10 Mg Tab 10 Mg PO TID Flexeril (Cyclobenzaprine HCl) 10 Mg Tab 10 Mg PO TID PRN Oxygen tank (Oxygen) 1 Ea Tank 2 Liter TAMEKA.CANULA CONTINUOUS PRN Oxygen Concentrator Portable Gaseous 2 L/min via Nasal Cannula Continuous For 99 months Albuterol Neb (Albuterol Sulfate) 2.5 Mg/0.5 Ml Neb 2.5 Mg NEB QID NEB Note: The Albuterol Sulfate Inhalation Solution is concentrated and must be diluted. Read complete instructions carefully before using. Proventil Hfa 6.7 GM Inh (Albuterol Sulfate) 90 Mcg/Act Aer 2 Puff INH Q6H PRN Breo Ellipta Inh (Fluticasone/Vilanterol) 200-25 Mcg/Act Inh 1 Puff INH DAILY Use daily at the same time. Review of Systems Except as stated in HPI: all other systems reviewed are Neg Physical Exam Narrative GENERAL: Frail appearing female, thin in no acute distress SKIN: Focused skin assessment warm and dry. HEAD: Atraumatic. Normocephalic. EYES: Pupils equal and round. No injection or drainage. ENT: Moist mucous membranes NECK: Trachea midline. CARDIOVASCULAR: Regular rate and rhythm. No murmur appreciated. RESPIRATORY: Clear to auscultation. Breath sounds equal bilaterally. GASTROINTESTINAL: Abdomen soft, tender to palpation in the left upper quadrant and left lower quadrants with no rebound or guarding. PEG tube is in place with no surrounding erythema or induration. MUSCULOSKELETAL: No obvious deformities. NEUROLOGICAL: Awake and alert. No obvious cranial nerve deficits. Moving all extremities. PSYCHIATRIC: Appropriate mood and affect; insight and judgment normal. Data Data Last Documented VS Vital Signs Date Time Temp Pulse Resp B/P Pulse Ox O2 Delivery O2 Flow Rate FiO2 12/10/16 20:27 16 100 12/10/16 19:04 97.7 95 127/[address] Abd/Pel W/O Iv Contrast (12/10/16 ) Complete Blood Count With Diff (12/10/16 20:33) Basic Metabolic Panel (Bmp) (12/10/16 20:33) ^ Insert Iv (12/10/16 20:33) Labs Laboratory Tests Test 12/10/16 21:15 White Blood Count 6.9 TH/MM3 Red Blood Count 4.84 MIL/MM3 Hemoglobin 12.7 GM/DL Hematocrit 39.9 % Mean Corpuscular Volume 82.5 FL Mean Corpuscular Hemoglobin 26.2 PG Mean Corpuscular Hemoglobin 31.7 % Concent Red Cell Distribution Width 14.9 % Platelet Count 257 TH/MM3 Mean Platelet Volume 8.1 FL Neutrophils (%) (Auto) 60.1 % Lymphocytes (%) (Auto) 30.1 % Monocytes (%) (Auto) 7.0 % Eosinophils (%) (Auto) 2.0 % Basophils (%) (Auto) 0.8 % Neutrophils # (Auto) 4.1 TH/MM3 Lymphocytes # (Auto) 2.1 TH/MM3 Monocytes # (Auto) 0.5 TH/MM3 Eosinophils # (Auto) 0.1 TH/MM3 Basophils # (Auto) 0.1 TH/MM3 CBC Comment DIFF FINAL Differential Comment Sodium Level 142 MEQ/L Potassium Level 3.7 MEQ/L Chloride Level 105 MEQ/L Carbon Dioxide Level 28.7 MEQ/L Anion Gap 8 MEQ/L Blood Urea Nitrogen 14 MG/DL Creatinine 0.41 MG/DL Estimat Glomerular Filtration 164 ML/MIN Rate Random Glucose 87 MG/DL Calcium Level 9.6 MG/DL MDM Medical Decision Making Medical Screen Exam Complete: Yes Emergency Medical Condition: Yes Medical Record Reviewed: Yes (patient has a PEG tube that was placed one month ago by Dr. Gammenthaler) Interpretation(s) Afebrile, mild tachycardia, normotensive No leukocytosis Electrolytes are reassuring Last 24 hours Impressions Abdomen/Pelvis CT 12/10/16 0000 Signed Impressions: Service Date/Time: Saturday, December 10, 2016 22:00 - CONCLUSION: Essentially unremarkable study. Mirza Nagy MD Differential Diagnosis PEG tube malfunction, abscess, malposition Narrative Course This is a 51-year-old female who has a PEG tube which is placed one month ago who says ever since then she's had severe pain at the site of the incision. The PEG tube is functioning normally. She is otherwise well appearing. Labs are reassuring. CT imaging is unremarkable. I don't think the patient has any indication for opiate therapy in the emergency department at this time. I think she is safe to follow-up with Dr. Cheney in clinic. Diagnosis Primary Impression: Pain Patient Instructions: General Instructions Additional Instructions: If you develop severe or worsening abdominal pain, fever>100.4, persistent vomiting or inability to eat or drink return to the emergency department immediately. Follow up with your primary care physician in 1-2 days for a check-up. Med/Other Pt SpecificInfo: No Change to Meds Disposition: 01 DISCHARGE HOME Condition: Stable Nancy Schmid MD Dec 10, 2016 20:48
[2016-12-10 22:08] LABS: AUTOMATED NEUTROPHIL # 4.1 TH/MM3 (1.8-7.7); BASOPHIL # 0.1 TH/MM3 (0-0.2); BASOPHIL % 0.8 % (0.0-2.0); EOSINOPHIL # 0.1 TH/MM3 (0-0.4); HEMATOCRIT 39.9 % (35.0-46.0); HEMO FLAGS DIFF FINAL; LYMPH % 30.1 % (9.0-44.0); LYMPHOCYTE # 2.1 TH/MM3 (1.0-4.8); MEAN CELL VOLUME 82.5 FL (80.0-100.0); MEAN CORPUSCULAR HEMOGLOBIN 26.2 PG (27.0-34.0); MEAN CORPUSCULAR HGB CONC 31.7 % (32.0-36.0); NEUT % 60.1 % (16.0-70.0); PLATELET COUNT 257 TH/MM3 (150-450); RED BLOOD COUNT 4.84 MIL/MM3 (4.00-5.30); RED CELL DISTRIBUTION WIDTH 14.9 % (11.6-17.2); WHITE BLOOD COUNT 6.9 TH/MM3 (4.0-11.0)
--- NOTE | 2016-12-10 22:16 | RADRPT ---
EXAM DATE/TIME: 12/10/2016 22:00 [facility] COMPARISON: CT ABDOMEN & PELVIS W CONTRAST, November 08, 2016, 9:32. INDICATIONS : Pain at Peg-tube site. ORAL CONTRAST: No oral contrast ingested. RADIATION DOSE: 4.63 CTDIvol (mGy) MEDICAL HISTORY : Stroke. Chronic obstructive pulmonary disease. Rheumatoid arthritis.Myocardial infarction. Diverticulitis. GERD. Ulcer. SURGICAL HISTORY : Cholecystectomy. Hysterectomy.Peg-tube. ENCOUNTER: Initial ACUITY: 1 day PAIN SCALE: 7/10 LOCATION: abdomen TECHNIQUE: Volumetric scanning of the abdomen and pelvis was performed. Using automated exposure control and adjustment of the mA and/or kV according to patient size, radiation dose was kept as low as reasonably achievable to obtain optimal diagnostic quality images. DICOM format image data is av ailable electronically for review and comparison. FINDINGS: CT Abdomen: The liver, spleen, pancreas, kidneys, adrenals are unremarkable. There is no evidence for any appreciable pathological adenopathy, free fluid, or bowel obstruction. Chronic vascular calcifi cations are present involving the aorta, iliac arteries without any significant stenosis or aneurysma l dilatations for technique. G-tube is in place. There is evidence for prior cholecystectomy. Previou sly seen right lower lobe nodule is no longer seen. CT pelvis: There is no evidence for mass, abscess formation, or any significant adenopathy within the pelvis. CONCLUSION: Essentially unremarkable study. Mirza Nagy MD on December 10, 2016 at 22:11 Board Certified Radiologist. This report was verified electronically.
[2016-12-10 22:23] LABS: BICARBONATE 28.7 MEQ/L (21.0-32.0); POTASSIUM 3.7 MEQ/L (3.5-5.1)
[2016-12-10 22:55] VITALS: BP 130/76
== END 2016-12-10 22:55 | disposition home or self-care (01) ==
LOC: NEPC 19:02
DX: R52 Pain, unspecified (principal); Z43.1 Encounter for attention to gastrostomy; R00.0 Tachycardia, unspecified; R11.0 Nausea; M06.9 Rheumatoid arthritis, unspecified; J44.9 Chronic obstructive pulmonary disease, unspecified; K21.9 Gastro-esophageal reflux disease without esophagitis; M79.7 Fibromyalgia; I69.351 Hemiplegia and hemiparesis following cerebral infarction affecting right dominant side
CPT/HCPCS: 74176; 80048; 85025; 99284

== ENCOUNTER → 2017-09-28 | Day surgery (SDC) | payer MEDICARE, MEDICAID ==
[~2017-09-28] VITALS: Ht 152.4 cm; Wt 44.0 kg
[~2017-09-28] MED LIST changes: -ALBU.5I NEB; +AMIT8CAP6 PO; +BACL10TA PO; +BISACODYL 10 MG SUPP RECTAL PRN; +CYCL10TA PO; -CYCL1TAB29 PO; -FLUT1INH7 INH; +FURO20TA PO; +GELFOAM SIZE 100 ONE; +GENTAMICIN SULFATE 80 MG/2 ML VIAL ONE; +HEPARIN SODIUM - SQ 10,000 UNITS/ML VIAL SQ SCH; +HYDR-3583 PO; +IPRASOL INH; -KANGAROO JOEY P1 MIS; +LACTATED RINGER'S 1000 ML IV PRN; +LACTULOSE SYRUP 20 GM/30 ML CUP PO PRN; +MAGNESIUM HYDROXIDE SUSP 30 ML CUP PO PRN; +METOPROLOL TARTRATE 25 MG TAB PO PRN; +MORP1TAB25 PO; +NALOXONE HCL 0.4 MG/ML AMP IV PUSH PRN; +NAPR500T2 PO; +ONDANSETRON HCL 4 MG/2 ML VIAL IVP PRN; -OXYGENDME NAS.CANULA; -OXYGENTANK NAS.CANULA; -OXYIR PO; +PIPERACIL-TAZO 4.5 GM PREMIX 100 ML IV SCH; +POTA10CA PO; -PROM6.256 PO; +RESP: ALBUTEROL 2.5 MG/IPRATROPIUM 0.5 MG NEB (PRN) ONE; +SENNOSIDES 8.6 MG TAB PO PRN; +SODIUM CHLOR 0.9% 1000 ML INJ 1,000 ML IV SCH; +SODIUM CHLORID 0.9% 500 ML IV PRN; +SODIUM CHLORIDE 0.9% FLUSH 10 ML FLUSH IV FLUSH PRN; +SODIUM CHLORIDE 0.9% FLUSH 10 ML FLUSH IV FLUSH SCH; +THROMBIN (TOPICAL) 5,000 UNIT VIAL ONE; +TRAZ100T10 PO; +UMEC1AER INH; +VANCOMYCIN 1 GM/200 ML PREMIX ON-CALL IV SCH; +ceFAZolin 2 GM PREMIX 0 ML ONE
[2017-09-28 10:15] VITALS: BP 120/69; PULSE 95; RESP 20; TEMP 100.9; O2SAT 88
[2017-09-28 11:01] LABS: AUTOMATED NEUTROPHIL # 9.9 TH/MM3 (1.8-7.7); BASOPHIL % 0.3 % (0.0-2.0); EOSINOPHIL % 0.1 % (0.0-4.0); HEMATOCRIT 34.2 % (35.0-46.0); HEMOGLOBIN 11.2 GM/DL (11.6-15.3); INTERNATIONAL NORMALIZED RATIO 1.2 RATIO; LYMPH % 9.9 % (9.0-44.0); LYMPHOCYTE # 1.2 TH/MM3 (1.0-4.8); MEAN CORPUSCULAR HEMOGLOBIN 26.4 PG (27.0-34.0); MEAN CORPUSCULAR HGB CONC 32.6 % (32.0-36.0); MEAN PLATELET VOLUME 8.1 FL (7.0-11.0); MONOCYTE # 1.2 TH/MM3 (0-0.9); NEUT % 79.7 % (16.0-70.0); PLATELET COUNT 217 TH/MM3 (150-450); PROTHROMBIN TIME - PATIENT 12.3 SEC (9.8-11.6); RED BLOOD COUNT 4.22 MIL/MM3 (4.00-5.30); RED CELL DISTRIBUTION WIDTH 15.6 % (11.6-17.2); WHITE BLOOD COUNT 12.4 TH/MM3 (4.0-11.0)
--- NOTE | 2017-09-28 11:14 | RADRPT ---
EXAM DATE/TIME: 09/28/2017 11:42 [facility] COMPARISON: CHEST SINGLE AP, October 14, 2016, 2:36. INDICATIONS : Fever and cough. MEDICAL HISTORY : Stroke. Chronic obstructive pulmonary disease. Myocardial infarction. GERD. Ulcer. SURGICAL HISTORY : Cholecystectomy. Hysterectomy. ENCOUNTER: Initial ACUITY: 2 days PAIN SCORE: 0/10 LOCATION: Bilateral chest FINDINGS: Portable AP view of the chest demonstrates a normal-sized cardiac silhouette with prominent main pulm onary artery contour. Lungs demonstrate background changes characteristic of emphysema. There is mild bibasilar airspace consolidation. No pneumothorax or pleural effusion is visualized. Bones and soft tissues demonstrate no acute finding. CONCLUSION: Mild bibasilar airspace consolidation could represent aspiration or infectious process. Marcos Rogers MD on September 28, 2017 at 11:11 Board Certified Radiologist. This report was verified electronically.
[2017-09-28 11:22] LABS: BICARBONATE 25.1 MEQ/L (21.0-32.0); CALCIUM 8.6 MG/DL (8.5-10.1); CREATININE 0.8 MG/DL (0.50-1.00)
[2017-09-28 11:29] LABS: BILIRUBIN, URINE NEG (NEG); GLUCOSE,URINE NEG (NEG); KETONE, URINE NEG (NEG); NITRITE,URINE NEG (NEG); PH, URINE 8.5 (5.0-8.5); URINE COLOR YELLOW (YELLW/STRAW); URINE LEUKOCYTE ESTERASE NEG (NEG)
[2017-09-28 11:36] LABS: BLOOD, URINE TRACE (NEG)
[2017-09-28 11:44] LABS: BACTERIA, URINE RARE /hpf; SQUAMOUS EPITHELIAL CELL URINE 1 /hpf (0-5)
[2017-09-29 13:06] LABS: BICARBONATE 25.3 MEQ/L (21.0-32.0); CALCIUM 8.2 MG/DL (8.5-10.1); CREATININE 0.62 MG/DL (0.50-1.00)
== END | disposition home or self-care (01) ==
LOC: HSDC 09:42
PROVIDERS: ATTEND Neurological Surgery
DX: M54.2 Cervicalgia (principal); Z53.8 Procedure and treatment not carried out for other reasons; R82.90 Unspecified abnormal findings in urine; R79.1 Abnormal coagulation profile
CPT/HCPCS: 71045; 80048; 81001; 85025; 85610; 87086; 94664; G0463; J7120; 99211; J0690; J1580

== ENCOUNTER 2017-11-16 09:04 | Observation (INO) | payer MEDICAID, MEDICARE ==
[~2017-11-16] VITALS: Ht 152.4 cm; Wt 44.8 kg
[~2017-11-16 09:04] MED LIST changes: -ALBU6.7H INH; -AMIT8CAP6 PO; -BISACODYL 10 MG SUPP RECTAL PRN; -CYCL10TA PO; -HEPARIN SODIUM - SQ 10,000 UNITS/ML VIAL SQ SCH; -LACTATED RINGER'S 1000 ML IV PRN; -LACTULOSE SYRUP 20 GM/30 ML CUP PO PRN; -MAGNESIUM HYDROXIDE SUSP 30 ML CUP PO PRN; -METOPROLOL TARTRATE 25 MG TAB PO PRN; +NALO1SPR NASAL; +NALO1TAB2 PO; -NALOXONE HCL 0.4 MG/ML AMP IV PUSH PRN; -ONDANSETRON HCL 4 MG/2 ML VIAL IVP PRN; -PIPERACIL-TAZO 4.5 GM PREMIX 100 ML IV SCH; +PROB1TAB4 PO; -RESP: ALBUTEROL 2.5 MG/IPRATROPIUM 0.5 MG NEB (PRN) ONE; -SENNOSIDES 8.6 MG TAB PO PRN; -SODIUM CHLOR 0.9% 1000 ML INJ 1,000 ML IV SCH; -SODIUM CHLORID 0.9% 500 ML IV PRN; -SODIUM CHLORIDE 0.9% FLUSH 10 ML FLUSH IV FLUSH PRN; -SODIUM CHLORIDE 0.9% FLUSH 10 ML FLUSH IV FLUSH SCH; -TRAZ100T10 PO; +TRAZ50TA12 PO; -VANCOMYCIN 1 GM/200 ML PREMIX ON-CALL IV SCH; -WALKER WHEELS/F1 MIS; -ceFAZolin 2 GM PREMIX 0 ML ONE
[2017-11-16] MEDS ORDERED: METOPROLOL TARTRATE 25 MG TAB PO PRN (09:45)
[2017-11-16] MEDS ORDERED: SODIUM CHLORID 0.9% 500 ML IV PRN (09:45)
[2017-11-16] MEDS ORDERED: LACTATED RINGER'S 1000 ML IV PRN (09:45)
[2017-11-16] MEDS ORDERED: SODIUM CHLOR 0.9% 1000 ML INJ 1,000 ML IV SCH (10:00)
[2017-11-16] MEDS ORDERED: VANCOMYCIN 1 GM/200 ML PREMIX ON-CALL IV SCH (10:00)
[2017-11-16 11:27] LABS: AUTOMATED NEUTROPHIL # 2.7 TH/MM3 (1.8-7.7); BASOPHIL # 0.1 TH/MM3 (0-0.2); EOSINOPHIL # 0.3 TH/MM3 (0-0.4); EOSINOPHIL % 4.2 % (0.0-4.0); HEMATOCRIT 37.6 % (35.0-46.0); HEMOGLOBIN 12.4 GM/DL (11.6-15.3); LYMPH % 43.1 % (9.0-44.0); LYMPHOCYTE # 2.6 TH/MM3 (1.0-4.8); MEAN CELL VOLUME 82.6 FL (80.0-100.0); MEAN CORPUSCULAR HEMOGLOBIN 27.2 PG (27.0-34.0); MEAN CORPUSCULAR HGB CONC 32.9 % (32.0-36.0); MEAN PLATELET VOLUME 7.7 FL (7.0-11.0); MONO % 7.2 % (0.0-8.0); MONOCYTE # 0.4 TH/MM3 (0-0.9); NEUT % 44.5 % (16.0-70.0); PLATELET COUNT 174 TH/MM3 (150-450); RED BLOOD COUNT 4.55 MIL/MM3 (4.00-5.30)
[2017-11-16 11:39] LABS: INTERNATIONAL NORMALIZED RATIO 1.1 RATIO; PROTHROMBIN TIME - PATIENT 10.7 SEC (9.8-11.6)
[2017-11-16 11:49] LABS: BICARBONATE 26.2 MEQ/L (21.0-32.0); CALCIUM 8.2 MG/DL (8.5-10.1); CREATININE 0.58 MG/DL (0.50-1.00)
[2017-11-16] MEDS ORDERED: ceFAZolin INJ 1,000 MG VIAL IV ONE (12:00)
[2017-11-16] MEDS ORDERED: PHENYLEPH/NS 1000 MCG/10 ML SYR IV ONE (12:00)
[2017-11-16] MEDS ORDERED: PROPOFOL 200 MG/20 ML AMP IV ONE (12:00)
[2017-11-16] MEDS ORDERED: ROCURONIUM INJ 50 MG/5 ML SYRINGE IV PUSH ONE (12:00)
[2017-11-16] MEDS ORDERED: ePHEDrine/NS 25 MG/5 ML SYRINGE IV ONE (12:00)
[2017-11-16] MEDS ORDERED: ONDANSETRON HCL 4 MG/2 ML VIAL IV ONE (12:00)
[2017-11-16] MEDS ORDERED: LIDOCAINE HCL 1% PF 5 ML SYRINGE OTHER ONE (12:00)
[2017-11-16] MEDS ORDERED: NORMOSOL R INJ 1,000 ML IV ONE (12:00)
[2017-11-16 12:02] LABS: BACTERIA, URINE RARE /hpf; BILIRUBIN, URINE NEG (NEG); BLOOD, URINE NEG (NEG); GLUCOSE,URINE NEG (NEG); KETONE, URINE NEG (NEG); MUCUS URINE FEW /lpf (OCC); NITRITE,URINE NEG (NEG); SQUAMOUS EPITHELIAL CELL URINE 1 /hpf (0-5); URINE COLOR YELLOW (YELLW/STRAW); URINE LEUKOCYTE ESTERASE NEG (NEG)
[2017-11-16] MEDS ORDERED: PROPOFOL 500 MG/50 ML INJ 150 ML ONE (12:21)
[2017-11-16] MEDS ORDERED: ACETAMINOPHEN 1000 MG/100 ML 100 ML IV ONE (12:21)
[2017-11-16] MEDS ORDERED: ARTIFICIAL TEARS OPTH OINT 3.5 APPLIC/3.5 GM TUBO ONE (12:21)
--- NOTE | 2017-11-16 12:45 | ECHRPT ---
Indication: ef assessment CONCLUSIONS Normal left ventricular size. Wall thickness is normal. No regional wall motion abnormalities are present. Normal LV size and function. Mild thickening of the mitral valve leaflets. No mitral valve regurgitation. There is trace tricuspid valve regurgitation. BP: / HR: Rhythm: MEASUREMENTS (Male / Female) Normal Values Technical Quality: 2D ECHO LV Diastolic Diameter PLAX 3.7 cm 4.2 - 5.9 / 3.9 - 5.3 cm LV Systolic Diameter PLAX 2.5 cm IVS Diastolic Thickness 0.8 cm 0.6 - 1.0 / 0.6 - 0.9 cm LVPW Diastolic Thickness 0.7 cm 0.6 - 1.0 / 0.6 - 0.9 cm LV Relative Wall Thickness 0.4 LA Systolic Diameter LX 2.3 cm 3.0 - 4.0 / 2.7 - 3.8 cm LV Ejection Fraction MOD 4C 64.8 % LV Ejection Fraction 4C AL 67.0 % FINDINGS LEFT VENTRICLE The left ventricular systolic function is normal with an estimated ejection fraction in the range of 60-65%. Normal left ventricular size. Wall thickness is normal. No regional wall motion abnormalities are present. RIGHT VENTRICLE Normal right ventricular size and systolic function. LEFT ATRIUM The left atrial size is normal. RIGHT ATRIUM The right atrial size is normal. AORTA The aortic root and proximal ascending aorta are normal in size on limited imaging. MITRAL VALVE Mild thickening of the mitral valve leaflets. No mitral valve regurgitation. AORTIC VALVE Trileaflet aortic valve. No aortic valve stenosis or regurgitation. TRICUSPID VALVE Structurally normal tricuspid valve. There is trace tricuspid valve regurgitation. PULMONARY VALVE No pulmonary valve regurgitation or stenosis. VESSELS The inferior vena cava is normal in size. PERICARDIUM No pericardial effusion. Robinson Sung MD (Electronically Signed) Final Date:16 November 2017 12:44
[2017-11-16] MEDS ORDERED: ceFAZolin 2 GM PREMIX 50 ML ONE (13:37)
--- NOTE | 2017-11-16 15:59 | PD.OP ---
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 Anesthesia: general endotracheal Surgeon: Durga Ayers Acute Dialysis Nurse(s): Jessica Nolasco Operation and Findings: INDICATIONS FOR THE PROCEDURE Ms Raymond is a 52 year-old female who presented with intractable neck pain and clinical evidence of upper extremity C4 radiculopathy. 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 She has failed maximum nonsurgical management including multiple modalities of conservative treatment as well as pain management interventions by an interventional pain specialist. A surgical decompression and arthrodhesis were indicated. The [id number] details of the procedure, indications, alternatives, risks and potential complications were fully discussed with the patient. The patient fully understood. All The questions were answered. No guarantees were given. The patient voiced requesting the procedure and provided informed consents. The patient was offered the alternative of delaying the procedure and continuing with nonsurgical management. DETAILS OF THE SURGICAL PROCEDURE After the induction of general anesthesia, endotracheal intubation was performed. A Zamorano catheter, bilateral ALANNAH hose, and sequential compression devices were placed and kept throughout the procedure. Placement of electrodes for neurophysiological monitoring of the somatosensorial evoked potentials. motor evoked potentials, and EMG as well as laryngeal nerve monitoring was achieved. The patient was positioned supine on a Mckinley table with the head over a gel doughnut. All pressure points were carefully padded with eggcrate mattress. The eyes were tapped shut after ointment was applied by the anesthesiologist to prevent corneal abrasion. A Diana hugger was placed over the exposed lower body to maintain control of the core body temperature. The electrophysiological team placed the needles and electrodes in their proper location and baseline SSEP's and motor evoked potentials were registered. The anterior cervical region was prepped and draped in the usual sterile fashion. A localizing x-ray was performed with a C-arm. The surgical procedure was performed in several steps as follow: SURGICAL APPROACH A skin incision was made along the superior cervical crease with a #10 blade. The dissection was carried out through the platysma exposing the sternocleidomastoid muscle. The cervical spine was approached following the fascial layers of the neck just medial to the anterior border of the sternocleidomastoid and carotid sheath by a combination of sharp and dull dissection. The tissues were severely abnormal and scarred, related to the previous radiation therapy to the neck. The omohyoid muscle was identified and carefully dissected laterally and the deep cervical fascia was carefully opened. The longus colli muscles were retracted to each side of the midline. An anterior osteophytic spur was removed. A marker was placed at the disc space C3-4 and a cross-table lateral x-ray performed with a C-arm. SURGICAL DECOMPRESSION In order to decompress the anterior surface of the spinal cord it was necessary to preform a microsurgical resection of the disk at C3-4. At this point in the procedure the operating microscope was draped in the usual sterile fashion and brought to the field. The rest of the surgical procedure was performed using microdissection technique with the exception of the closure. Under the operative microscopic, a self-retaining retractor was placed underneath the longus colli muscle. The annulus was incised with a #15 blade and a microdiscectomy was then carefully carried out using angled curets and pituitary forceps. There was a, osteophitic/disk herniation complex, which was producing severe mass effect and compression of the spinal cord. The posterior longitudinal ligament was then elevated with an angled curet and incised with a 15 bladed knife. A careful resection of the posterior longitudinal ligament was carried out using a thin footplate 2 mm Kerrison.A nerve hook was used to assess the epidural space behind the vertebral bodies C3 and C4 in search for residual disk fragments. The margins of the posterior endplates at C3 and C4 were carefully drilled and undercut with a TPS drill under high magnification. The decompression was then carried out laterally, and a bilateral foraminotomy was performed with a 2mm thin foot Kerrison. Then the vertebral bodies above and below the disk space were undercut using a 2 mm thin foot Kerrison. The epidural space was the systematically assessed with a nerve hook in search for disk fragments. An excellent decompression was achieved in both, the dural sac and bilateral exiting nerve roots. The incision was then irrigated with a large amount of antibiotic solution INTERBODY ARTHRODHESIS In order to avoid collapse of the disk space which would result in bilateral foraminal stenosis, and to increase the chances of a successful fusion, it was necessary to place an interbody cage filled with autologous bone. At this point of the procedure, the superior and inferior endplates were then evenly decorticated with a TPS drill. The use of a drill in combination with a curette allowed me to systematically remove the cartilaginous endplates, exposing healthy bone for the interbody arthrodesis. forteen millimeters distraction pins were then placed at the vertebral bodies adjacent to the disk space, and gentle distraction was applied. The size of the interbody cage was then assessed using different size spacers, and a rasp was used to ensure no residual cartilage. A PEEK cage of the appropriate size was selected, and the interbody arthrodesis was then preformed by carefully impacting a PEEK cage filled with autologous bone graft to the disc space C3-4. An excellent position of the cage was achieved. This was was confirmed anatomically by feeling the space posterior to the implant and distance to the anterior surface of the dural sac. Radiological confirmation of the position was performed with a cross lateral xray performed with the C-arm. INTERNAL INSTRUMENTAL FIXATION Once that the interbody device was in an appropriate position, it was necessary to stabilize the spine with anterior instrumentation. Anterior instrumentation has demonstrated to increase the rate of fusion, accelerate the patient's recovery, and decrease the rate of failed interbody grafts. At this point of the procedure, the distance between the vertebral bodies was carefully measures , and a Simplicity plate was brought to the field and presented in front of the vertebral bodies C3 C4. Rotary Engine Assembler holes were then drilled using the TPS drill, and the plate was then secured to the spine using self-drilling, self-tapping screws. Initially, the inferior right screw was inserted, followed by placement of the contralateral upper screw. The remanding screws were sequentially placed in a contra-lateral fashion. A proper purchase was achieved with all screws and the position of the cage, plate and screws, and alignment of the spine was assessed anatomically by direct visualization, and radiologically by performing a cross lateral xray of the cervical spine with the C-arm. CLOSURE The incision was irrigated with several liters of antibiotic solution. Hemostasis was achieved with a bipolar. The screws were locked to prevent backing out. A 7 mm Mckinley-Starks drain was left in the prevertebral space and externalized through a separate stab incision. The incision was then closed in layers. 3-0 Vicryl with interrupted sutures was used to close the platysma and subcutaneous tissue. The skin was closed with 4-0 running subcuticular Vicryl and Dermabond was applied. The drain was secured with a 3-0 nylon. At the end of the procedure the sponge, needle and instrument counts were all correct. The estimated blood loss was less than 60 cc. No blood transfusion was given. No intraoperative complications occurred. The patient received prophylactic antibiotics. The patient was then extubated and transferred to the recovery room in stable condition. Durga Ayers MD Nov 16, 2017 15:59
[2017-11-16] MEDS ORDERED: *MEPERIDINE 25 MG INJ VIAL PERIprocedural Use ONLY ONE (16:08)
[2017-11-16] MEDS ORDERED: MIDAZOLAM HCL 2 MG/2 ML VIAL ONE (16:14)
[2017-11-16] MEDS ORDERED: MORPHINE SULFATE 4 MG/ML INJ ONE (16:15)
[2017-11-16] MEDS ORDERED: DO NOT ADM ANY ANTICOAGULANT DRUGS PRN (16:30)
--- NOTE | 2017-11-16 16:34 | RADRPT ---
EXAM DATE: 11/16/2017 4:26 PM EDT AGE/SEX: 52 years / Female INDICATIONS: Fusion C3,C4 with screws and plate placement. CLINICAL DATA: This is the patient's initial encounter. Patient reports that signs and symptoms have been present for 1 day and indicates a pain score of Nonresponsive. MEDICAL/SURGICAL HISTORY: None. None. COMPARISON: No prior exams available for comparison. FINDINGS: There is an anterior cervical fusion plate at the C3-C4 level. Stabilization device seen at the C3-C4 disc level. The hardware appears well placed. CONCLUSION: Successful placement of hardware at the C3-C4 level. Electronically signed by: Marcos Lentz MD 11/16/2017 4:33 PM EDT
[2017-11-16] MEDS ORDERED: FUROSEMIDE 20 MG TAB PO PRN (16:45)
[2017-11-16] MEDS ORDERED: RESP: ALBUTEROL 2.5 MG/IPRATROPIUM 0.5 MG NEB (SCH) INH PRN (16:45)
[2017-11-16] MEDS ORDERED: ACETAMINOPHEN/HYDROcodone 325 MG/10 MG TAB PO PRN ×2 (16:45→17:00)
[2017-11-16] MEDS ORDERED: NALOXONE 4 MG NASAL PRN (16:45)
[2017-11-16] MEDS ORDERED: POTASSIUM CHLORIDE 10 MEQ CAP PO PRN (16:45)
[2017-11-16] MEDS ORDERED: MENTHOL LOZENGE BUCCAL PRN (17:00)
[2017-11-16] MEDS ORDERED: MAGNESIUM HYDROXIDE SUSP 30 ML CUP PO PRN (17:00)
[2017-11-16] MEDS ORDERED: GLUCAGON 1 MG/ML VIAL OTHER PRN (17:00)
[2017-11-16] MEDS ORDERED: CYCLOBENZAPRINE HCL 10 MG TAB PO PRN (17:00)
[2017-11-16] MEDS: SODIUM CHLOR 0.9% 1000 ML INJ 1,000 ML IV SCH (17:00)
[2017-11-16] MEDS ORDERED: cloNIDine HCL 0.1 MG TAB PO/NG PRN (17:00)
[2017-11-16] MEDS ORDERED: MORPHINE SULFATE 4 MG/ML INJ IV PUSH PRN ×2 (17:00)
[2017-11-16] MEDS ORDERED: ONDANSETRON HCL 4 MG/2 ML VIAL IV PRN (17:00)
[2017-11-16] MEDS ORDERED: ACETAMINOPHEN 325 MG TAB PO PRN (17:00)
[2017-11-16] MEDS ORDERED: DEXTROSE 50% IN WATER 50 ML VIAL(D50) IV PUSH PRN (17:00)
[2017-11-16] MEDS ORDERED: BISACODYL 10 MG SUPP RECTAL PRN (17:00)
[2017-11-16] MEDS ORDERED: *morphine SULFATE 4 MG/ML PERIprocedure ONLY ONE (17:15)
[2017-11-16] MEDS ORDERED: ONDANSETRON ODT 4 MG TAB PO PRN (17:45)
[2017-11-16] MEDS ORDERED: NALOXONE HCL 0.4 MG/ML AMP IV PUSH PRN (18:00)
[2017-11-16] MEDS: DIAZEPAM 10 MG TAB PO SCH (18:18)
[2017-11-16] MEDS: BACLOFEN 10 MG TAB PO SCH (18:18)
[2017-11-16 18:30] VITALS: BP 128/72; PULSE 73; RESP 18; TEMP 97.2; O2SAT 93
[2017-11-16] MEDS: ACETAMINOPHEN/HYDROcodone 325 MG/10 MG TAB PO PRN ×2 (18:40→22:44)
[2017-11-16 20:00] VITALS: BP 130/70; PULSE 64; RESP 18; TEMP 97.5; O2SAT 93
[2017-11-16] MEDS ORDERED: CHLORHEXIDINE GLUCONATE 4% SOLN 120 ML BTL TOP SCH (21:00)
[2017-11-16] MEDS ORDERED: ALPRAZolam 1 MG TAB PO SCH (21:00)
[2017-11-16] MEDS ORDERED: traZODone HCL 50 MG TAB PO SCH (21:00)
[2017-11-16] MEDS: NAPROXEN 500 MG TAB PO SCH (21:16)
[2017-11-16] MEDS: DOCUSATE SODIUM 100 MG CAP PO SCH (21:16)
[2017-11-16] MEDS: DEXAMETHASONE SOD PHOS 4 MG/ML VIAL IV PUSH SCH (21:16)
[2017-11-16] MEDS: ceFAZolin 2 GM PREMIX 50 ML IV SCH (21:17)
[2017-11-16] MEDS: MORPHINE SULFATE 30 MG CONTROLLED RELEASE TAB PO SCH (21:18)
[2017-11-17] VITALS: BP 122/69; PULSE 59; RESP 18; TEMP 97.4; O2SAT 94
[2017-11-17] MEDS: RESP: ALBUTEROL 2.5 MG/3 ML NEB (SCH) INH ×4 (00:45→12:00)
[2017-11-17 00:51] VITALS: O2SAT 93
[2017-11-17] MEDS: DEXAMETHASONE SOD PHOS 4 MG/ML VIAL IV PUSH SCH ×3 (01:27→13:47)
[2017-11-17] MEDS: SODIUM CHLOR 0.9% 1000 ML INJ 1,000 ML IV SCH ×2 (03:00→04:07)
[2017-11-17 04:00] VITALS: BP_SYST 132; BP_SYST 136; BP_DIAS 69; BP_DIAS 70; PULSE 64; PULSE 97; RESP 18; RESP 20; TEMP 97.6; TEMP 98.2; O2SAT 97
[2017-11-17] MEDS: ACETAMINOPHEN/HYDROcodone 325 MG/10 MG TAB PO PRN ×3 (04:13→13:48)
[2017-11-17] MEDS: MORPHINE SULFATE 30 MG CONTROLLED RELEASE TAB PO SCH ×2 (05:43→13:47)
[2017-11-17] MEDS: ceFAZolin 2 GM PREMIX 50 ML IV SCH ×2 (05:43→13:49)
[2017-11-17] MEDS ORDERED: [UNRECOGNIZED DRUG - OTHER] PO SCH (08:00)
[2017-11-17 08:55] VITALS: O2SAT 95
[2017-11-17] MEDS ORDERED: UMECLIDINIUM 62.5 MCG/VILANTEROL 25 MCG INHALER INH SCH (09:00)
[2017-11-17] MEDS ORDERED: LACTOBACILLUS ACIDOPHILUS TAB PO SCH (09:00)
[2017-11-17] MEDS ORDERED: PANTOPRAZOLE SODIUM 40 MG VIAL IVP PRN (09:00)
[2017-11-17] MEDS ORDERED: PANTOPRAZOLE SOD 40 MG DELAYED RELEASE TAB PO SCH (09:00)
[2017-11-17] MEDS: DOCUSATE SODIUM 100 MG CAP PO SCH (09:13)
[2017-11-17] MEDS: NAPROXEN 500 MG TAB PO SCH (09:13)
[2017-11-17] MEDS: BACLOFEN 10 MG TAB PO SCH ×2 (09:15→13:47)
[2017-11-17] MEDS: DIAZEPAM 10 MG TAB PO SCH ×2 (09:16→13:47)
[2017-11-17] MEDS ORDERED: HYDR-3583 PO (10:19)
--- NOTE | 2017-11-17 11:02 | HHI.DCPOC ---
Discharge Care Plan Diagnosis: (1) Status post cervical arthrodesis Goals to Promote Your Health * To prevent worsening of your condition and complications * To maintain your health at the optimal level Directions to Meet Your Goals Take your medications as prescribed Follow your dietary instruction Follow activity as directed Keep your appointments as scheduled Take your immunizations and boosters as scheduled If your symptoms worsen call your PCP, if no PCP go to Urgent Care Center or Emergency Room Smoking is Dangerous to Your Health. Avoid second hand smoke Call the 24-hour hour crisis hotline for domestic abuse at Mimi Masterson Nov 17, 2017 11:02
[2017-11-17] MEDS ORDERED: WALKER WHEELS/F1 MIS (11:03)
--- NOTE | 2017-11-17 11:03 | HHI.DS ---
Discharge Summary Admission Date Nov 16, 2017 at 17:19 Discharge Date: Nov 17, 2017 Admitting Diagnosis s/p ACDF (1) Status post cervical arthrodesis ICD Code: Z98.1 - Arthrodesis status Brief History Ms Raymond is a 52 year-old female who presented with intractable neck pain and clinical evidence of upper extremity C4 radiculopathy. 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 She has failed maximum nonsurgical management including multiple modalities of conservative treatment as well as pain management interventions by an interventional pain specialist. A surgical decompression and arthrodhesis were indicated. CBC/BMP: 11/16/17 1100 11/16/17 1100 Significant Findings Laboratory Tests Test 11/16/17 11:00 11/16/17 11:16 Eosinophils (%) (Auto) 4.2 % (0.0-4.0) Calcium Level 8.2 MG/DL (8.5-10.1) Urine Bacteria RARE /hpf (NONE) Urine Mucus FEW /lpf (OCC) Imaging Last Impressions Cervical Spine X-Ray 11/16/17 0000 Signed Impressions: CONCLUSION: Successful placement of hardware at the C3-C4 level. Hospital Course Ms. Raymond underwent C3-4 cervical discectomy, interbody arthrodesis using PEEK cage filled with autologous bone graft, Simplicity plate and screws. on Nov 16, 2017 for C3-4 disk herniation. She was discharged home in stable conditions. Pt Condition on Discharge: Stable Discharge Disposition: Disch w/ Home Health Serv Discharge Instructions DIET: Follow Instructions for: Heart Healthy Diet, Soft Diet ACTIVITIES You can perform: Weight Bearing As [place] ADDITIONAL Activity Instructio: Avoid strenuous activities, heavy lifting over 5 lbs, overhead activities, repetitive bending, twisting, pushing, pulling or any activities which might result in stress over the spine. Avoid situation that will put at risk for falls. Use assistive device as needed for walking. Wear cervical collar at all times, may remove only with meals. New Medications: Walker with Front Wheels (Walker with Front Wheels) 1 Mis Mis EA .XX DIRECTED, #1 0 Refills Continued Medications: Alprazolam (Alprazolam) 1 Mg Tab 2 MG PO HS for ANXIETY, TAB 0 Refills Baclofen (Baclofen) 10 Mg Tab 10 MG PO TID for Muscle Spasm, TAB 0 Refills Diazepam (Diazepam) 10 Mg Tab 10 MG PO TID, TAB 0 Refills Furosemide (Furosemide) 20 Mg Tab 20 MG PO TID PRN for SHORTNESS OF BREATH, #30 TAB 0 Refills Hydrocodone-Acetaminophen (Hydrocodone-Acetaminophen) 10-325 mg Tab 1 TAB PO TID PRN for PAIN, #60 TAB 0 Refills (This prescription has been renewed ) Ipratropium-Albuterol Neb (Duoneb) 0.5-2.5 Mg/3 Ml Neb 1 NEBULE INH Q8HR NEB PRN for SHORTNESS OF BREATH, #90 NEBULE 0 Refills Morphine ER (Morphine ER) 30 Mg Tab 30 MG PO TID for Pain Management, TAB 0 Refills Naloxegol (Movantik) 25 Mg Tab 25 MG PO DAILY for Prevent Constipation, #30 TAB 0 Refills Naloxone Nasal [place] (Narcan Nasal [place]) 4 Mg/Act [place] 4 MG NASAL ONCE PRN for OPIOID OVERDOSE, SPRAY 0 Refills Contents of 1 nasal spray as a single dose; may repeat every 2 to 3 minutes in alternating nostrils until medical assistance becomes available. Naproxen (Naproxen) 500 Mg Tab 500 MG PO BID, #60 TAB 0 Refills Potassium Chloride ER (Potassium Chloride ER) 10 Meq Cap 10 MEQ PO TID PRN for SHORTNESS OF BREATH, #30 CAP 0 Refills TAKES WHEN HAS TO TAKE LASIX Probiotic Product (Acidophilus Probiotic) 500 Million Cell-50 Mg Tab 1 TAB PO DAILY Trazodone (Trazodone) 50 Mg Tab 150 MG PO HS for Control Depression, #30 TAB 0 Refills Umeclidinium-Vilanterol Inh (Anoro Ellipta Inh) 62.5-25 Mcg/Act Aero 1 PUFF INH DAILY for COPD, #1 INHALER 0 Refills Mimi Masterson Nov 17, 2017 11:03
--- NOTE | 2017-11-17 11:04 | HHI.FF ---
Face to Face Verification Diagnosis: (1) Status post cervical arthrodesis Physical Therapy Order: Improve ambulation Home Health Nursing Order: Medical education Signs/symptoms of disease process Medication education-adverse effect Wound care and dressing changes (see d/c wound care instructions) Nursing assessment with vital signs I have seen patient Lorie Raymond on 11/17/17. My clinical findings support the need for the requested home health care services because: Ltd mobility - disease progression Deconditioned w/ increased weakness Limited ability to care for self High risk of falls I certify that my clinical findings support that this patient is homebound because: Post-op weakness Unsteady gait/balance Mimi Masterson Nov 17, 2017 11:04
== END 2017-11-17 16:25 | disposition home or self-care (01) ==
LOC: HSDC 09:04 → HPAC 17:19 → N06B 17:41
PROVIDERS: ADMIT Neurological Surgery; ATTEND Neurological Surgery
DX: M50.11 Cervical disc disorder with radiculopathy, high cervical region (principal); M47.12 Other spondylosis with myelopathy, cervical region; J44.9 Chronic obstructive pulmonary disease, unspecified; G47.30 Sleep apnea, unspecified; K21.9 Gastro-esophageal reflux disease without esophagitis; M79.7 Fibromyalgia; I69.351 Hemiplegia and hemiparesis following cerebral infarction affecting right dominant side; J98.4 Other disorders of lung; G43.909 Migraine, unspecified, not intractable, without status migrainosus; E46 Unspecified protein-calorie malnutrition; I25.2 Old myocardial infarction; F17.200 Nicotine dependence, unspecified, uncomplicated; R06.02 Shortness of breath
CPT/HCPCS: 00600; 20936; 22551; 22853; 72040; 76000; 80048; 81001; 85025; 85610; 85730; 93308; 94150; 94640; 94664; 96361; 96365; 96375; 96376; 97162; 97166; C1713; G0378; G8987; G8988; J0131; J0690; J1100; J1580; J2175; J2250; J2270; J2370; J2405; J3010; J3370; J7030; J7120; J7613; L0172